=== PATIENT | male | born 1970 | race Caucasian/White ===

== ENCOUNTER → 2018-10-09 | Outpatient (CLI) | payer BC ==
--- NOTE | 2018-10-09 16:28 | CT ---
EXAMINATION TYPE: CT abdomen pelvis w con DATE OF EXAM: 10/09/2018 COMPARISON: None HISTORY: No BM x2 months CT DLP: 1541.1 mGycm CONTRAST: CT scan of the abdomen and pelvis is performed with Oral Contrast and with IV Contrast, patient injec mumtaz with 100 mL of Isovue 300. FINDINGS: LUNG BASES-: No visible nodule. No infiltrate. LIVER/GB: No calcified gallstones. No space occupying hepatic lesion. Biliary tree is of normal ca liber. Mild hepatomegaly. PANCREAS: No inflammation. No distinct mass. SPLEEN: No splenic enlargement. No lesion seen. ADRENALS: No nodule. No thickening. KIDNEYS/BLADDER: No hydronephrosis. No nephrolithiasis. No distinct renal mass. Urinary bladder g rossly unremarkable. BOWEL: Normal appendix. Normal bowel caliber. No inflammation. Left lower quadrant ostomy with para stomal hernia. No evidence for obstruction or strangulation. Mild fecal stasis. No free air or absces s. GENITAL ORGANS: No gross abnormality. LYMPH NODES: No greater than 1cm abdominal or pelvic lymph nodes are appreciated. AORTA: No significant abnormality. OSSEOUS STRUCTURES: No significant abnormality is seen. OTHER: [place] supraumbilical midline ventral hernia containing only fat measures 6.1 cm in transve rse dimension. IMPRESSION: 1. No acute intra-abdominal process. 2. Left lower quadrant ostomy with parastomal hernia. 3. [place] fat-containing supraumbilical midline ventral hernia. 4. Mild hepatomegaly.
== END | disposition home or self-care (01) ==
LOC: RADCTMAIN 14:20
PROVIDERS: ATTEND Midwife
DX: K43.5 Parastomal hernia without obstruction or gangrene (principal); K43.9 Ventral hernia without obstruction or gangrene; R16.0 Hepatomegaly, not elsewhere classified; Z93.4 Other artificial openings of gastrointestinal tract status
CPT/HCPCS: 74177; Q9967

== ENCOUNTER 2018-10-10 21:31 | Inpatient (IN) | payer BC ==
--- NOTE | 2018-10-10 21:45 | ED ---
Recheck HPI - General Chief Complaint: Recheck/Abnormal Lab/Rx Stated Complaint: Dr sahu-Abn labs Time Seen by Provider: 10/10/18 21:41 Source: patient Mode of arrival: ambulatory Limitations: no limitations - History of Present Illness Initial Comments: Candido is a 48-year-old male with a history of colostomy secondary to complicated diverticulitis. Patient has no other significant medical history he is on no medications though he does admit he does not follow with primary care very frequently. Patient reports that for the past couple weeks he's been feeling very fatigued, lacking energy he's noticed these thirsty all the time and has been drinking nearly 2 gallons of milk daily because nothing else taste good. He saw his primary care physician on October 09 and had outpatient labs. He was contacted the evening of October 10 and advised that he had significant lab abnormalities and needed to seek care in the emergency department. Patient was advised at that time that he has a new diagnosis of diabetes.patient does have a strong family history of diabetes. - Related Data Home Medications Medication Instructions Recorded Confirmed No Known Home Medications 10/10/18 10/10/18 Allergies Allergy/AdvReac Type Severity Reaction Status Date / Time No Known Allergies Allergy Verified 10/10/18 22:03 Review of Systems ROS Statement: Those systems with pertinent positive or pertinent negative responses have been documented in the HPI. ROS Other: All systems not noted in ROS Statement are negative. Constitutional: Reports: weakness (generalized). Denies: fever Cardiovascular: Denies: chest pain Endocrine: Reports: fatigue Gastrointestinal: Denies: abdominal pain Genitourinary: Reports: frequency Musculoskeletal: Denies: back pain Skin: Denies: lesions Neurological: Reports: weakness (generalized). Denies: headache Psychiatric: Denies: anxiety, depression Past Medical History Additional Past Medical History / Comment(s): diverticulitis History of Any Multi-Drug Resistant Organisms: None Reported Additional Past Surgical History / Comment(s): colectomy with colostomy Past Psychological History: No Psychological Hx Reported Smoking Status: Never smoker Past Alcohol Use History: None Reported Past Drug Use History: None Reported General Exam - General Exam Comments Initial Comments: Physical Exam GENERAL: Patient is well-developed and well-nourished. Patient is nontoxic but appears dehydrated HENT: Normocephalic, Atraumatic. EYES: PERRL, EOMI PULMONARY: Unlabored respirations. No audible rales rhonchi or wheezing was noted. CARDIOVASCULAR: tachycardic, regular with warm and well perfused extremities ABDOMEN: Soft and nontender with normal bowel sounds. Colostomy in left lower quadrant pink patent and productive SKIN: Skin is clear with no lesions or rashes and otherwise unremarkable. : Deferred NEUROLOGIC: Patient is alert and oriented x3. Moving all extremities spontaneously MUSCULOSKELETAL: Normal extremities with adequate strength and full range of motion. No lower extremity swelling or edema. No calf tenderness. PSYCHIATRIC: Normal psychiatric evaluation. Limitations: no limitations Limitations: no limitations Course Vital Signs 10/10/18 10/10/18 21:33 22:49 Temperature 98.3 F Pulse Rate 116 H 111 H Respiratory 20 16 Rate Blood Pressure 145/92 151/97 O2 Sat by Pulse 93 L 95 Oximetry Medical Decision Making - Medical Decision Making Patient was seen and evaluated history is obtained from the patient and review of outside medical records Labs from previous study revealed patient was in early DKA with a glucose of greater than 600 and anion gap of 15 pseudohyponatremia and a potassium of 5.7 I will repeat labs resuscitate patient and plan to admit Patient care was discussed with patient's primary care provider Dr. Varela who agrees with plan for admission Repeat labs reveal worsening hyperglycemia and hyperosmolar state - anion gap 15 , acetone positive but pH remains normal - no evidence of DKA but will plan to treat with insulin infusion Insulin bolus and infusion ordered, continued IVF ordered Patient care discussed with Dr. Browne who accepts the patient to the ICU Admission orders placed - Lab Data Result diagrams: 10/10/18 22:20 10/10/18 22:20 Lab Results 10/10/18 10/10/18 10/10/18 Range/Units 20:55 22:10 22:20 WBC (3.8-10.6) k/uL RBC (4.30-5.90) m/uL Hgb (13.0-17.5) gm/dL Hct (39.0-53.0) % MCV (80.0-100.0) fL MCH (25.0-35.0) pg MCHC (31.0-37.0) g/dL RDW (11.5-15.5) % Plt Count (150-450) k/uL Neutrophils % % Lymphocytes % % Monocytes % % Eosinophils % % Basophils % % Neutrophils # (1.3-7.7) k/uL Lymphocytes # (1.0-4.8) k/uL Monocytes # (0-1.0) k/uL Eosinophils # (0-0.7) k/uL Basophils # (0-0.2) k/uL VBG pH 7.47 H (7.31-7.41) VBG pCO2 36 L (37-51) mmHg VBG HCO3 26 (24-28) mmol/L Sodium (137-145) mmol/L Potassium (3.5-5.1) mmol/L Chloride (98-107) mmol/L Carbon Dioxide (22-30) mmol/L Anion Gap mmol/L BUN (9-20) mg/dL Creatinine (0.66-1.25) mg/dL Est GFR (CKD-EPI)AfAm (>60 ml/min/1.73 sqM) Est GFR (CKD-EPI)NonAf (>60 ml/min/1.73 sqM) Glucose (74-99) mg/dL Osmolality (280-301) mosm/kg Plasma Lactic Acid Baldev (0.7-2.0) mmol/L Calcium (8.4-10.2) mg/dL Magnesium (1.6-2.3) mg/dL Total Bilirubin (0.2-1.3) mg/dL AST (17-59) U/L ALT (21-72) U/L Alkaline Phosphatase (38-126) U/L Total Creatine Kinase 169 (55-170) U/L CK-MB (CK-2) 0.9 (0.0-2.4) ng/mL CK-MB (CK-2) Rel Index 0.5 Troponin I <0.012 (0.000-0.034) ng/mL Total Protein (6.3-8.2) g/dL Albumin (3.5-5.0) g/dL Lipase (23-300) U/L Urine Color Colorless Urine Appearance Clear (Clear) Urine pH 5.0 (5.0-8.0) Ur Specific [place] 1.028 (1.001-1.035) Urine Protein Negative (Negative) Urine Glucose (UA) 4+ H (Negative) Urine Ketones 1+ H (Negative) Urine Blood Trace H (Negative) Urine Nitrite Negative (Negative) Urine Bilirubin Negative (Negative) Urine Urobilinogen <2.0 (<2.0) mg/dL Ur Leukocyte Esterase Negative (Negative) Urine RBC 2 (0-5) /hpf Urine WBC 1 (0-5) /hpf Acetone, Qual (Negative) 10/10/18 10/10/18 10/10/18 Range/Units 22:20 22:20 22:20 WBC 8.6 (3.8-10.6) k/uL RBC 5.50 (4.30-5.90) m/uL Hgb 15.6 (13.0-17.5) gm/dL Hct 49.5 (39.0-53.0) % MCV 90.1 (80.0-100.0) fL MCH 28.4 (25.0-35.0) pg MCHC 31.6 (31.0-37.0) g/dL RDW 13.0 (11.5-15.5) % Plt Count 308 (150-450) k/uL Neutrophils % 76 % Lymphocytes % 15 % Monocytes % 5 % Eosinophils % 2 % Basophils % 1 % Neutrophils # 6.5 (1.3-7.7) k/uL Lymphocytes # 1.3 (1.0-4.8) k/uL Monocytes # 0.4 (0-1.0) k/uL Eosinophils # 0.2 (0-0.7) k/uL Basophils # 0.1 (0-0.2) k/uL VBG pH (7.31-7.41) VBG pCO2 (37-51) mmHg VBG HCO3 (24-28) mmol/L Sodium 133 L (137-145) mmol/L Potassium 5.3 H (3.5-5.1) mmol/L Chloride 93 L (98-107) mmol/L Carbon Dioxide 25 (22-30) mmol/L Anion Gap 15 mmol/L BUN 34 H (9-20) mg/dL Creatinine 0.89 (0.66-1.25) mg/dL Est GFR (CKD-EPI)AfAm >90 (>60 ml/min/1.73 sqM) Est GFR (CKD-EPI)NonAf >90 (>60 ml/min/1.73 sqM) Glucose 794 H* (74-99) mg/dL Osmolality 343 H* (280-301) mosm/kg Plasma Lactic Acid Baldev 2.1 H* (0.7-2.0) mmol/L Calcium 9.6 (8.4-10.2) mg/dL Magnesium 2.4 H (1.6-2.3) mg/dL Total Bilirubin 0.7 (0.2-1.3) mg/dL AST 33 (17-59) U/L ALT 47 (21-72) U/L Alkaline Phosphatase 158 H (38-126) U/L Total Creatine Kinase (55-170) U/L CK-MB (CK-2) (0.0-2.4) ng/mL CK-MB (CK-2) Rel Index Troponin I (0.000-0.034) ng/mL Total Protein 8.2 (6.3-8.2) g/dL Albumin 4.2 (3.5-5.0) g/dL Lipase 310 H (23-300) U/L Urine Color Urine Appearance (Clear) Urine pH (5.0-8.0) Ur Specific [place] (1.001-1.035) Urine Protein (Negative) Urine Glucose (UA) (Negative) Urine Ketones (Negative) Urine Blood (Negative) Urine Nitrite (Negative) Urine Bilirubin (Negative) Urine Urobilinogen (<2.0) mg/dL Ur Leukocyte Esterase (Negative) Urine RBC (0-5) /hpf Urine WBC (0-5) /hpf Acetone, Qual Positive (Negative) - EKG Data -: EKG Interpreted by Me EKG shows normal: sinus rhythm EKG Comments: EKG obtained at 2239 rate is 108 rhythm is sinus tachycardia there is a leftward axis, there are normal intervals, GA 184, QRS 98, QTC is 452. There are no acute ST elevations or depressions no evidence of acute ischemia or infarction. Critical Care Time Critical Care Time: Yes Total Critical Care Time: 30 Critical Care Time: Critical Care Critical care time was exclusive of separately billable procedures and treating other patients. Critical care was necessary to treat or prevent imminent or life-threatening deterioration. Critical care was time spent personally by me on the following activities: development of treatment plan with patient or surrogate, discussions with consultants, discussions with primary provider, evaluation of patient's response to treatment, examination of patient, obtaining history from patient or surrogate, ordering and performing treatments and interventions, ordering and review of laboratory studies, ordering and review of radiographic studies, pulse oximetry, re-evaluation of patient's condition and review of old charts. Disposition Clinical Impression: Uncontrolled type 2 DM with hyperosmolar nonketotic hyperglycemia, New onset type 2 diabetes mellitus Disposition: ADMITTED IP TO THIS [facility] Condition: Serious Is patient prescribed a controlled substance at d/c from ED?: No Referrals: James Varela MD [Primary Care Provider] - 1-2 days
[2018-10-10] MEDS: SODIUM CHLORIDE 0.9% 500 ML 500 ML IV SCH ×3 (22:27→23:38)
[2018-10-10 22:44] LABS: Appearance,Urine Clear (Clear); Bilirubin,Urine Negative (Negative); Blood,Urine Trace (Negative); Color,Urine Colorless; Glucose,Urine (UA) 4+ (Negative); Ketones,Urine 1+ (Negative); Leukocyte Esterase,Urine Negative (Negative); Nitrite,Urine Negative (Negative); Protein,Urine Negative (Negative); RBC,Urine 2 /hpf (0-5); Specific Gravity,Urine 1.028 (1.001-1.035); Urobilinogen,Urine <2.0 mg/dL (<2.0)
[2018-10-10 22:48] LABS: Basophils # (A) 0.1 k/uL (0-0.2); Basophils % (A) 1 %; Eosinophils # (A) 0.2 k/uL (0-0.7); Eosinophils % (A) 2 %; HCT 49.5 % (39.0-53.0); HGB 15.6 gm/dL (13.0-17.5); Lymphocytes # (A) 1.3 k/uL (1.0-4.8); Lymphocytes % (A) 15 %; MCH 28.4 pg (25.0-35.0); MCHC 31.6 g/dL (31.0-37.0); MCV 90.1 fL (80.0-100.0); Mean Platelet Volume 8.3; Monocytes # (A) 0.4 k/uL (0-1.0); Monocytes % (A) 5 %; Neutrophils # (A) 6.5 k/uL (1.3-7.7); Neutrophils % (A) 76 %; Platelet Count 308 k/uL (150-450); WBC 8.6 k/uL (3.8-10.6)
[2018-10-10 23:09] LABS: VBG PH 7.47 (7.31-7.41)
[2018-10-10 23:09] LABS: Creatine Kinase 169 U/L (55-170)
[2018-10-10 23:11] LABS: Albumin 4.2 g/dL (3.5-5.0); Anion Gap 15 mmol/L; Blood Urea Nitrogen 34 mg/dL (9-20); Calcium 9.6 mg/dL (8.4-10.2); Carbon Dioxide 25 mmol/L (22-30); Chloride 93 mmol/L (98-107); Lipase 310 U/L (23-300); Sodium 133 mmol/L (137-145); Total Bilirubin 0.7 mg/dL (0.2-1.3); Total Protein 8.2 g/dL (6.3-8.2)
[2018-10-10 23:21] LABS: Creatine Kinase MB 0.9 ng/mL (0.0-2.4); Troponin I <0.012 ng/mL (0.000-0.034)
[2018-10-10 23:22] LABS: Glucose 794 mg/dL (74-99)
[2018-10-10 23:23] LABS: ALT 47 U/L (21-72); AST 33 U/L (17-59); Alkaline Phosphatase 158 U/L (38-126); Magnesium 2.4 mg/dL (1.6-2.3); Potassium 5.3 mmol/L (3.5-5.1)
[2018-10-10] MEDS ORDERED: INSULIN REGULAR BOLUS (FROM DRIP BAG) IV PRN (23:25)
[2018-10-10] MEDS ORDERED: SODIUM CHLORIDE 0.9% 1,000 ML IV SCH (23:30)
[2018-10-10] MEDS: INSULIN REGULAR 100 UNIT in SODIUM CHLORIDE 0.9% 100 ML IV SCH (23:50)
[2018-10-10 23:54] LABS: Glucose,Whole Blood 564 mg/dL (75-99)
[2018-10-11 00:36] LABS: Glucose,Whole Blood 487 mg/dL (75-99)
[2018-10-11 00:55] LABS: Glucose,Whole Blood 418 mg/dL (75-99)
[2018-10-11] MEDS ORDERED: SODIUM CHLORIDE 0.9% 1,000 ML IV SCH (01:00)
[2018-10-11] MEDS: INSULIN REGULAR 100 UNIT in SODIUM CHLORIDE 0.9% 100 ML IV SCH ×3 (01:05→12:30)
[2018-10-11 01:40] LABS: Glucose,Whole Blood 406 mg/dL (75-99)
[2018-10-11 02:06] LABS: Glucose,Whole Blood 322 mg/dL (75-99)
[2018-10-11 02:18] LABS: Basophils # (A) 0.1 k/uL (0-0.2); Basophils % (A) 1 %; Eosinophils # (A) 0.2 k/uL (0-0.7); Eosinophils % (A) 3 %; HCT 42.9 % (39.0-53.0); HGB 14.3 gm/dL (13.0-17.5); Lymphocytes # (A) 2.2 k/uL (1.0-4.8); Lymphocytes % (A) 24 %; MCH 29.1 pg (25.0-35.0); MCHC 33.4 g/dL (31.0-37.0); MCV 87.2 fL (80.0-100.0); Mean Platelet Volume 7.2; Monocytes # (A) 0.5 k/uL (0-1.0); Monocytes % (A) 5 %; Neutrophils % (A) 65 %; Platelet Count 323 k/uL (150-450); RBC 4.92 m/uL (4.30-5.90); WBC 9.1 k/uL (3.8-10.6)
[2018-10-11 02:30] LABS: Glucose 332 mg/dL (74-99); Phosphorus 3.9 mg/dL (2.5-4.5)
[2018-10-11 03:03] LABS: Glucose,Whole Blood 378 mg/dL (75-99)
[2018-10-11 03:37] LABS: Anion Gap 8 mmol/L; Blood Urea Nitrogen 29 mg/dL (9-20); Carbon Dioxide 27 mmol/L (22-30); Chloride 103 mmol/L (98-107); Sodium 138 mmol/L (137-145)
[2018-10-11 04:07] LABS: Glucose,Whole Blood 326 mg/dL (75-99)
[2018-10-11 05:13] LABS: Glucose,Whole Blood 218 mg/dL (75-99)
[2018-10-11] MEDS: D5-0.45% NACL WITH KCL 20MEQ/L 1,000 ML IV SCH ×3 (05:26→17:05)
[2018-10-11 05:56] LABS: Glucose,Whole Blood 215 mg/dL (75-99)
[2018-10-11 06:10] LABS: Basophils # (A) 0.1 k/uL (0-0.2); Basophils % (A) 1 %; Eosinophils # (A) 0.4 k/uL (0-0.7); Eosinophils % (A) 5 %; HCT 39.2 % (39.0-53.0); HGB 13.1 gm/dL (13.0-17.5); Lymphocytes # (A) 2.5 k/uL (1.0-4.8); Lymphocytes % (A) 28 %; MCH 28.8 pg (25.0-35.0); MCHC 33.5 g/dL (31.0-37.0); MCV 86.1 fL (80.0-100.0); Mean Platelet Volume 6.9; Monocytes # (A) 0.4 k/uL (0-1.0); Monocytes % (A) 5 %; Neutrophils # (A) 5.2 k/uL (1.3-7.7); Neutrophils % (A) 60 %; Platelet Count 298 k/uL (150-450); RBC 4.55 m/uL (4.30-5.90); RDW 13.1 % (11.5-15.5); WBC 8.7 k/uL (3.8-10.6)
[2018-10-11 06:34] LABS: Potassium 3.7 mmol/L (3.5-5.1)
[2018-10-11 06:35] LABS: Anion Gap 6 mmol/L; Blood Urea Nitrogen 23 mg/dL (9-20); Calcium 8.5 mg/dL (8.4-10.2); Carbon Dioxide 27 mmol/L (22-30); Chloride 108 mmol/L (98-107); Glucose 225 mg/dL (74-99); Magnesium 2.2 mg/dL (1.6-2.3); Sodium 141 mmol/L (137-145)
[2018-10-11 06:59] LABS: Glucose,Whole Blood 238 mg/dL (75-99)
[2018-10-11] MEDS ORDERED: POTASSIUM CHLORIDE ER 20 MEQ TAB.ER PO SCH (07:00)
--- NOTE | 2018-10-11 07:37 | XR ---
EXAMINATION TYPE: XR chest 1V portable DATE OF EXAM: 10/11/2018 CLINICAL HISTORY: Shortness of breath TECHNIQUE: Single frontal view of the chest is obtained. COMPARISON: None FINDINGS: There is no focal air space opacity, pleural effusion, or pneumothorax seen. The cardiac silhouette size is within normal limits. The osseous structures are intact. IMPRESSION: No acute process.
[2018-10-11 08:12] LABS: Glucose,Whole Blood 428 mg/dL (75-99)
[2018-10-11] MEDS: HEPARIN SODIUM,PORCINE 5,000 UNIT/ML 1 ML VIAL SQ SCH ×2 (08:21→17:25)
[2018-10-11] MEDS: FAMOTIDINE 20 MG/2 ML VIAL IV SCH ×2 (08:21→21:03)
[2018-10-11 09:08] LABS: Glucose,Whole Blood 489 mg/dL (75-99)
--- NOTE | 2018-10-11 09:28 | P.CNPUL ---
History of Present Illness Consult date: 10/11/18 Requesting physician: James Varela Reason for consult: other Chief complaint: Fatigue, increased thirst, urination History of present illness: This is a 48-year-old white male patient of Dr. James Varela, past medical history of perforated diverticulitis status post colon resection and colostomy, presented to the emergency department on a very 2018 with complaints of increased fatigue, lacking energy, increased thirst, urination, in addition patient was having some mild pedal edema, and numbness and tingling in the tips of his hands. He has been drinking nearly 2 gallons of milk daily, is nothing else tasted good. Patient saw Dr. Varela in the office on October 09 and had outpatient labs. He was contacted by his PCP with significantly abnormal labs and was told to go to the emergency department. Lab work showed serum glucose of 794, serum osmolality of 343, sodium of 133, potassium is 5.3, chloride was 93, anion gap of 15, CO2 is 25, B1 is 34 and creatinine was 0.89. Lipase was 310, troponin was negative 1, serum acetone was positive, urinalysis showed 4+ glucose, 1+ ketones and trace blood. CBC was negative for any leukocytosis, white blood cell count was 8.6, hemoglobin is 15.6. EKG showed sinus tachycardia with a rate of 108, voltage criteria for LVH, chest x-ray showed no acute process. Patient has a strong family history of diabetes mellitus, he hasn't seen his primary care provider in the last couple years or had any blood work done. CT of the abdomen was done and showed no acute intra-abdominal process,, hepatomegaly, and [place] fat-containing supraumbilical midline ventral hernia. Patient takes no prescription medications on a regular basis. This is a new diagnosis of diabetes mellitus. He was given 2 L of IV fluids in the emergency department. And was started on insulin infusion per [facility] protocol. His morning patient is seen in the intensive care unit, he is still fatigued, but is alert, and responding appropriately, no acute complaints, he was able to eat breakfast, no nausea, no vomiting, no fever or chills, no shortness of breath or chest pain. No abdominal discomfort. Latest blood sugar was 482, patient is currently on 6 units per hour of insulin. IV fluids of D5 half normal saline with 20 ML every of potassium at a rate of 150 ML per hour. Review of Systems All systems: negative Constitutional: Reports anorexia, Reports malaise, Reports poor appetite, Reports weakness, Denies chills, Denies fever Eyes: denies blurred vision, denies pain Ears, nose, mouth and throat: Denies headache, Denies sore throat Cardiovascular: Denies chest pain, Denies shortness of breath Respiratory: Denies cough Gastrointestinal: Denies abdominal pain, Denies diarrhea, Denies nausea, Denies vomiting Musculoskeletal: Denies myalgias Integumentary: Denies pruritus, Denies rash Neurological: Reports paresthesias, Denies numbness, Denies weakness Psychiatric: Denies anxiety, Denies depression Endocrine: Reports excessive thirst, Reports fatigue, Reports polydipsia, Reports polyuria, Denies weight change Past Medical History Additional Past Medical History / Comment(s): diverticulitis History of Any Multi-Drug Resistant Organisms: None Reported Additional Past Surgical History / Comment(s): colectomy with colostomy Past Psychological History: No Psychological Hx Reported Smoking Status: Never smoker Past Alcohol Use History: None Reported Past Drug Use History: None Reported - Past Family History Brother(s) Family Medical History: Cancer, Myocardial Infarction ([place]) Additional Family Medical History / Comment(s): prostate ca. Medications and Allergies Home Medications Medication Instructions Recorded Confirmed Type No Known Home Medications 10/10/18 10/10/18 History Allergies Allergy/AdvReac Type Severity Reaction Status Date / Time No Known Allergies Allergy Verified 10/10/18 22:03 Physical Exam Vitals: Vital Signs Temp Pulse Resp BP Pulse Ox 10/11/18 07:00 90 13 119/82 96 10/11/18 06:00 87 14 119/75 96 10/11/18 05:00 92 12 135/70 95 10/11/18 04:00 98.7 F 98 15 90/55 94 L 10/11/18 03:40 14 10/11/18 03:00 98 16 126/61 94 L 10/11/18 02:00 101 H 19 134/90 95 10/11/18 01:00 98.2 F 109 H 16 138/84 94 L 10/11/18 00:30 16 10/10/18 23:56 107 H 18 151/91 95 10/10/18 22:49 111 H 16 151/97 95 02/06/19 21:33 98.3 F 116 H 20 145/92 93 L Intake and Output 10/10/18 10/11/18 10/11/18 22:59 06:59 14:59 Intake Total 1531.071 15.25 Output Total 725 Balance 806.071 15.25 Intake: IV 1500 D5-0.45% NaCl with KCl 300 20Meq/l 1,000 ml @ 150 mls/hr IV .Q6H40M [facility] Rx# :[id number] Sodium Chloride 0.9% 1, 1200 000 ml @ 200 mls/hr IV . Q5H [facility] Rx#:[id number] Intake, IV Titration 31.071 15.25 Amount Insulin Regular 100 unit 17.183 15.25 In Sodium Chloride 0.9% 100 ml @ 0.1 UNITS/KG/HR 10.85 mls/hr IV .Q9H19M [facility] Rx#:[id number] Insulin Regular 100 unit 13.888 In Sodium Chloride 0.9% 100 ml @ Per Protocol IV .Q0M [facility] Rx#:[id number] Output: Urine 725 Other: # Voids 1 Weight 107.501 kg 106.2 kg GENERAL EXAM: Alert, pleasant, 48-year-old white male, appears fatigued, but in no distress HEAD: Normocephalic/atraumatic. EYES: Normal reaction of pupils, equal size. Conjunctiva pink, sclera white. NOSE: Clear with pink turbinates. THROAT: No erythema or exudates. NECK: No masses, no JVD, no thyroid enlargement, no adenopathy. CHEST: No chest wall deformity. Symmetrical expansion. LUNGS: Equal air entry with no crackles, wheeze, rhonchi or dullness. CVS: Regular rate and rhythm, normal S1 and S2, no gallops, no murmurs, no rubs ABDOMEN: Soft, nontender. No hepatosplenomegaly, normal bowel sounds, no guarding or rigidity. EXTREMITIES: No clubbing, no edema, no cyanosis, 2+ pulses and upper and lower extremities. MUSCULOSKELETAL: Muscle strength and tone normal. SPINE: No scoliosis or deformity SKIN: No rashes CENTRAL NERVOUS SYSTEM: Alert and oriented -3. No focal deficits, tone is normal in all 4 extremities. PSYCHIATRIC: Alert and oriented -3. Appropriate affect. Intact judgment and insight. Results - Laboratory Findings CBC and BMP: 10/11/18 05:31 10/11/18 05:31 Abnormal lab findings: Abnormal Labs 10/10/18 10/10/18 10/10/18 20:55 22:10 22:20 VBG pH 7.47 H VBG pCO2 36 L Sodium 133 L Potassium 5.3 H Chloride 93 L BUN 34 H Glucose 794 H* POC Glucose (mg/dL) Osmolality 343 H* Plasma Lactic Acid Baldev Magnesium 2.4 H Alkaline Phosphatase 158 H Lipase 310 H Urine Glucose (UA) 4+ H Urine Ketones 1+ H Urine Blood Trace H 10/10/18 10/10/18 10/11/18 22:20 23:44 00:35 VBG pH VBG pCO2 Sodium Potassium Chloride BUN Glucose POC Glucose (mg/dL) 564 H 487 H Osmolality Plasma Lactic Acid Baldev 2.1 H* Magnesium Alkaline Phosphatase Lipase Urine Glucose (UA) Urine Ketones Urine Blood 10/11/18 10/11/18 10/11/18 00:54 01:39 01:54 VBG pH VBG pCO2 Sodium Potassium Chloride BUN 29 H Glucose 332 H POC Glucose (mg/dL) 418 H 406 H Osmolality Plasma Lactic Acid Baldev Magnesium Alkaline Phosphatase Lipase Urine Glucose (UA) Urine Ketones Urine Blood 10/11/18 10/11/18 10/11/18 03:02 04:06 05:11 VBG pH VBG pCO2 Sodium Potassium Chloride BUN Glucose POC Glucose (mg/dL) 378 H 326 H 218 H Osmolality Plasma Lactic Acid Baldev Magnesium Alkaline Phosphatase Lipase Urine Glucose (UA) Urine Ketones Urine Blood 10/11/18 10/11/18 10/11/18 05:31 05:54 06:58 VBG pH VBG pCO2 Sodium Potassium Chloride 108 H BUN 23 H Glucose 225 H POC Glucose (mg/dL) 215 H 238 H Osmolality Plasma Lactic Acid Baldev Magnesium Alkaline Phosphatase Lipase Urine Glucose (UA) Urine Ketones Urine Blood 10/11/18 10/11/18 08:10 09:06 VBG pH VBG pCO2 Sodium Potassium Chloride BUN Glucose POC Glucose (mg/dL) 428 H 489 H Osmolality Plasma Lactic Acid Baldev Magnesium Alkaline Phosphatase Lipase Urine Glucose (UA) Urine Ketones Urine Blood - Diagnostic Findings Chest x-ray: report reviewed, image reviewed Additional studies: EKG reviewed Assessment and Plan Plan: Assessment: #1. New diagnosis of diabetes mellitus, and patient presented with acute diabetic ketoacidosis #2. Polyuria, polydipsia, weakness, and fatigue, related to the above #3. Anion gap metabolic acidosis, improved with IV hydration and insulin infusion #4. Mild hyponatremia related to dehydration, improved with IV hydration #5. Elevated lipase, computed tomography scan of the abdomen and pelvis do not show any acute intra-abdominal process #6. History of perforated diverticulitis, status post bowel resection and colostomy placement Plan: We'll switch the IV fluids 0.45 normal saline at a rate of 100 ML per hour, patient is tolerating oral intake, vital signs are stable, no fever or chills, no shortness of breath or chest pain, no nausea or vomiting, no abdominal pain. Chest x-ray was reviewed with Dr. Browne, showed no acute pulmonary process. We will start the patient on basal insulin, we'll start Lantus at 30 units daily, with transition to Humalog sliding scale. Hemoglobin A1c has been drawn and is pending at this time. Cultures have been collected and sent, and are pending at this time, and continue monitoring electrolytes and renal profile. I performed a history & physical examination of the patient and discussed their management with my nurse practitioner, Ailyn Yoon. I reviewed the nurse practitioner's note and agree with the documented findings and plan of care. Lung sounds are positive for clear breath sounds. The findings and the impression was discussed with the patient. I attest to the documentation by the nurse practitioner. Time with Patient: Greater than 30
[2018-10-11 10:09] LABS: Glucose,Whole Blood 287 mg/dL (75-99)
[2018-10-11 10:21] LABS: Anion Gap 4 mmol/L; Blood Urea Nitrogen 21 mg/dL (9-20); Carbon Dioxide 28 mmol/L (22-30); Chloride 107 mmol/L (98-107); Glucose 305 mg/dL (74-99); Phosphorus 3.5 mg/dL (2.5-4.5); Potassium 4.1 mmol/L (3.5-5.1); Sodium 139 mmol/L (137-145)
[2018-10-11 10:44] VITALS: BMI 32.6
[2018-10-11 10:57] LABS: Glucose,Whole Blood 260 mg/dL (75-99)
[2018-10-11] MEDS: SODIUM CHLORIDE 0.45% 1,000 ML IV SCH ×2 (10:58→17:27)
[2018-10-11] MEDS: INSULIN DETEMIR 100 UNIT/ML 10 ML VIAL SQ SCH (11:00)
[2018-10-11 12:01] LABS: Glucose,Whole Blood 326 mg/dL (75-99)
--- NOTE | 2018-10-11 12:18 | P.HPIM ---
History of Present Illness 48-year-old male was admitted to the emergency room after visiting primary care physician Dr. James Varela. Patient was found to be hyperglycemic no personal history of diabetes states of father's family has diabetes. 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 States patient stated he has not felt well for the last 2 months she is been having problems with increased thirst and polyuria Review of Systems Constitutional: Reports fatigue Gastrointestinal: Reports loss of appetite Genitourinary: Reports polyuria Endocrine: Reports excessive thirst, Reports polyuria Past Medical History Additional Past Medical History / Comment(s): diverticulitis History of Any Multi-Drug Resistant Organisms: None Reported Additional Past Surgical History / Comment(s): colectomy with colostomy Past Psychological History: No Psychological Hx Reported Smoking Status: Never smoker Past Alcohol Use History: None Reported Past Drug Use History: None Reported - Past Family History Brother(s) Family Medical History: Cancer, Myocardial Infarction ([place]) Additional Family Medical History / Comment(s): prostate ca. Medications and Allergies Home Medications Medication Instructions Recorded Confirmed Type No Known Home Medications 10/10/18 10/10/18 History Allergies Allergy/AdvReac Type Severity Reaction Status Date / Time No Known Allergies Allergy Verified 10/10/18 22:03 Physical Exam Vitals: Vital Signs Temp Pulse Resp BP Pulse Ox 10/11/18 10:00 85 13 138/86 96 10/11/18 09:00 89 12 132/84 96 10/11/18 08:00 98 F 89 14 147/90 97 10/11/18 07:00 90 13 119/82 96 10/11/18 06:00 87 14 119/75 96 10/11/18 05:00 92 12 135/70 95 10/11/18 04:00 98.7 F 98 15 90/55 94 L 10/11/18 03:40 14 10/11/18 03:00 98 16 126/61 94 L 10/11/18 02:00 101 H 19 134/90 95 10/11/18 01:00 98.2 F 109 H 16 138/84 94 L 10/11/18 00:30 16 10/10/18 23:56 107 H 18 151/91 95 10/10/18 22:49 111 H 16 151/97 95 10/10/18 21:33 98.3 F 116 H 20 145/92 93 L Intake and Output 10/10/18 10/11/18 10/11/18 22:59 06:59 14:59 Intake Total 1531.071 421.15 Output Total 725 300 Balance 806.071 121.15 Intake: IV 1500 400 D5-0.45% NaCl with KCl 300 300 20Meq/l 1,000 ml @ 150 mls/hr IV .Q6H40M [facility] Rx# :[id number] Sodium Chloride 0.45% 1, 100 000 ml @ 100 mls/hr IV . Q10H [facility] Rx#:[id number] Sodium Chloride 0.9% 1, 1200 000 ml @ 200 mls/hr IV . Q5H [facility] Rx#:[id number] Intake, IV Titration 31.071 21.15 Amount Insulin Regular 100 unit 17.183 21.15 In Sodium Chloride 0.9% 100 ml @ 0.1 UNITS/KG/HR 10.85 mls/hr IV .Q9H19M [facility] Rx#:[id number] Insulin Regular 100 unit 13.888 In Sodium Chloride 0.9% 100 ml @ Per Protocol IV .Q0M [facility] Rx#:[id number] Output: Urine 725 300 Other: # Voids 1 Weight 107.501 kg 106.2 kg 106.2 kg - Constitutional General appearance: mild distress - EENT Eyes: PERRLA Ears: bilateral: normal - Neck Neck: normal ROM - Respiratory Respiratory: bilateral: CTA - Cardiovascular Rhythm: regular - Gastrointestinal General gastrointestinal: soft - Integumentary Integumentary: normal - Neurologic Neurologic: CNII-XII intact - Musculoskeletal Musculoskeletal: gait normal - Psychiatric Psychiatric: A&O x's 3, appropriate affect, intact judgment & insight Results CBC & Chem 7: 10/11/18 05:31 10/11/18 09:46 Labs: Abnormal Lab Results - Last 24 Hours (Table) 10/10/18 10/10/18 10/10/18 Range/Units 20:55 22:10 22:20 VBG pH 7.47 H (7.31-7.41) VBG pCO2 36 L (37-51) mmHg Sodium 133 L (137-145) mmol/L Potassium 5.3 H (3.5-5.1) mmol/L Chloride 93 L (98-107) mmol/L BUN 34 H (9-20) mg/dL Glucose 794 H* (74-99) mg/dL POC Glucose (mg/dL) (75-99) mg/dL Osmolality 343 H* (280-301) mosm/kg Plasma Lactic Acid Baldev (0.7-2.0) mmol/L Magnesium 2.4 H (1.6-2.3) mg/dL Alkaline Phosphatase 158 H (38-126) U/L Lipase 310 H (23-300) U/L Urine Glucose (UA) 4+ H (Negative) Urine Ketones 1+ H (Negative) Urine Blood Trace H (Negative) 10/10/18 10/10/18 10/11/18 Range/Units 22:20 23:44 00:35 VBG pH (7.31-7.41) VBG pCO2 (37-51) mmHg Sodium (137-145) mmol/L Potassium (3.5-5.1) mmol/L Chloride (98-107) mmol/L BUN (9-20) mg/dL Glucose (74-99) mg/dL POC Glucose (mg/dL) 564 H 487 H (75-99) mg/dL Osmolality (280-301) mosm/kg Plasma Lactic Acid Baldev 2.1 H* (0.7-2.0) mmol/L Magnesium (1.6-2.3) mg/dL Alkaline Phosphatase (38-126) U/L Lipase (23-300) U/L Urine Glucose (UA) (Negative) Urine Ketones (Negative) Urine Blood (Negative) 10/11/18 10/11/18 10/11/18 Range/Units 00:54 01:39 01:54 VBG pH (7.31-7.41) VBG pCO2 (37-51) mmHg Sodium (137-145) mmol/L Potassium (3.5-5.1) mmol/L Chloride (98-107) mmol/L BUN 29 H (9-20) mg/dL Glucose 332 H (74-99) mg/dL POC Glucose (mg/dL) 418 H 406 H (75-99) mg/dL Osmolality (280-301) mosm/kg Plasma Lactic Acid Baldev (0.7-2.0) mmol/L Magnesium (1.6-2.3) mg/dL Alkaline Phosphatase (38-126) U/L Lipase (23-300) U/L Urine Glucose (UA) (Negative) Urine Ketones (Negative) Urine Blood (Negative) 10/11/18 10/11/18 10/11/18 Range/Units 03:02 04:06 05:11 VBG pH (7.31-7.41) VBG pCO2 (37-51) mmHg Sodium (137-145) mmol/L Potassium (3.5-5.1) mmol/L Chloride (98-107) mmol/L BUN (9-20) mg/dL Glucose (74-99) mg/dL POC Glucose (mg/dL) 378 H 326 H 218 H (75-99) mg/dL Osmolality (280-301) mosm/kg Plasma Lactic Acid Baldev (0.7-2.0) mmol/L Magnesium (1.6-2.3) mg/dL Alkaline Phosphatase (38-126) U/L Lipase (23-300) U/L Urine Glucose (UA) (Negative) Urine Ketones (Negative) Urine Blood (Negative) 10/11/18 10/11/18 10/11/18 Range/Units 05:31 05:54 06:58 VBG pH (7.31-7.41) VBG pCO2 (37-51) mmHg Sodium (137-145) mmol/L Potassium (3.5-5.1) mmol/L Chloride 108 H (98-107) mmol/L BUN 23 H (9-20) mg/dL Glucose 225 H (74-99) mg/dL POC Glucose (mg/dL) 215 H 238 H (75-99) mg/dL Osmolality (280-301) mosm/kg Plasma Lactic Acid Baldev (0.7-2.0) mmol/L Magnesium (1.6-2.3) mg/dL Alkaline Phosphatase (38-126) U/L Lipase (23-300) U/L Urine Glucose (UA) (Negative) Urine Ketones (Negative) Urine Blood (Negative) 10/11/18 10/11/18 10/11/18 Range/Units 08:10 09:06 09:46 VBG pH (7.31-7.41) VBG pCO2 (37-51) mmHg Sodium (137-145) mmol/L Potassium (3.5-5.1) mmol/L Chloride (98-107) mmol/L BUN 21 H (9-20) mg/dL Glucose 305 H (74-99) mg/dL POC Glucose (mg/dL) 428 H 489 H (75-99) mg/dL Osmolality (280-301) mosm/kg Plasma Lactic Acid Baldev (0.7-2.0) mmol/L Magnesium (1.6-2.3) mg/dL Alkaline Phosphatase (38-126) U/L Lipase (23-300) U/L Urine Glucose (UA) (Negative) Urine Ketones (Negative) Urine Blood (Negative) 10/11/18 10/11/18 10/11/18 Range/Units 10:06 10:56 11:59 VBG pH (7.31-7.41) VBG pCO2 (37-51) mmHg Sodium (137-145) mmol/L Potassium (3.5-5.1) mmol/L Chloride (98-107) mmol/L BUN (9-20) mg/dL Glucose (74-99) mg/dL POC Glucose (mg/dL) 287 H 260 H 326 H (75-99) mg/dL Osmolality (280-301) mosm/kg Plasma Lactic Acid Baldev (0.7-2.0) mmol/L Magnesium (1.6-2.3) mg/dL Alkaline Phosphatase (38-126) U/L Lipase (23-300) U/L Urine Glucose (UA) (Negative) Urine Ketones (Negative) Urine Blood (Negative) Chest x-ray: report reviewed Thrombosis Risk Factor Assmnt - Choose All That Apply Any of the Below Risk Factors Present?: Yes Each Factor Represents 1 point: Age 41-60 years, Obesity (BMI >25) Other Risk Factors: No Other congenital or acquired thrombophilia - If yes, enter type in comment: No Thrombosis Risk Factor Assessment Total Risk Factor Score: 2 Thrombosis Risk Factor Assessment Level: Low Risk Assessment and Plan Plan: Assessment Head diabetes type 2 with hyper osmolar ketotic hyperglycemia Hyponatremia related dehydration History of colostomy from perforated diverticulitis Plan Stabilized diabetes diabetic teaching We will order meter and strips from patient's pharmacy
[2018-10-11] MEDS: INSULIN ASPART 100 UNIT/ML 1 ML 10 ML VIAL SQ SCH ×3 (12:21→21:03)
[2018-10-11 16:03] LABS: Hemoglobin A1C 13.1 % (4.0-6.0)
[2018-10-11 17:12] LABS: Glucose,Whole Blood 256 mg/dL (75-99)
[2018-10-11 20:25] LABS: Glucose,Whole Blood 268 mg/dL (75-99)
[2018-10-12 00:02] LABS: Glucose,Whole Blood 222 mg/dL (75-99)
[2018-10-12 01:37] LABS: Glucose,Whole Blood 254 mg/dL (75-99)
[2018-10-12 01:55] LABS: Glucose,Whole Blood 263 mg/dL (75-99)
[2018-10-12] MEDS: INSULIN ASPART 100 UNIT/ML 1 ML 10 ML VIAL SQ SCH ×5 (03:03→12:24)
[2018-10-12] MEDS: HEPARIN SODIUM,PORCINE 5,000 UNIT/ML 1 ML VIAL SQ SCH ×3 (03:03→15:44)
[2018-10-12] MEDS: SODIUM CHLORIDE 0.45% 1,000 ML IV SCH ×2 (03:03→12:49)
[2018-10-12 06:07] LABS: Basophils # (A) 0.1 k/uL (0-0.2); Basophils % (A) 1 %; Eosinophils # (A) 0.4 k/uL (0-0.7); Eosinophils % (A) 6 %; HCT 38.1 % (39.0-53.0); HGB 12.3 gm/dL (13.0-17.5); Lymphocytes # (A) 2.2 k/uL (1.0-4.8); Lymphocytes % (A) 28 %; MCH 28.7 pg (25.0-35.0); MCHC 32.4 g/dL (31.0-37.0); MCV 88.5 fL (80.0-100.0); Mean Platelet Volume 7.7; Monocytes # (A) 0.3 k/uL (0-1.0); Monocytes % (A) 4 %; Neutrophils # (A) 4.5 k/uL (1.3-7.7); Neutrophils % (A) 59 %; Platelet Count 269 k/uL (150-450); RDW 13.1 % (11.5-15.5); WBC 7.6 k/uL (3.8-10.6)
[2018-10-12 06:23] LABS: Anion Gap 5 mmol/L; Blood Urea Nitrogen 16 mg/dL (9-20); Calcium 8.2 mg/dL (8.4-10.2); Carbon Dioxide 25 mmol/L (22-30); Chloride 107 mmol/L (98-107); Glucose 235 mg/dL (74-99); Phosphorus 3.8 mg/dL (2.5-4.5); Potassium 3.9 mmol/L (3.5-5.1); Sodium 137 mmol/L (137-145)
[2018-10-12] MEDS ORDERED: Potassium Replacement Protocol 1 EACH MISC MISCELLANE PRN (06:49)
[2018-10-12 06:56] LABS: Glucose,Whole Blood 221 mg/dL (75-99)
[2018-10-12] MEDS: D5-0.45% NACL WITH KCL 20MEQ/L 1,000 ML IV SCH (07:58)
[2018-10-12] MEDS ORDERED: POTASSIUM CHLORIDE ER 20 MEQ TAB.ER PO SCH (08:00)
[2018-10-12] MEDS: INSULIN DETEMIR 100 UNIT/ML 10 ML VIAL SQ SCH (08:17)
[2018-10-12] MEDS: FAMOTIDINE 20 MG/2 ML VIAL IV SCH (08:17)
[2018-10-12] MEDS ORDERED: INSULIN DETEMIR 100 UNIT/ML 10 ML VIAL SQ SCH (09:00)
[2018-10-12 10:07] VITALS: TEMP 98.7
--- NOTE | 2018-10-12 10:10 | P.PN ---
Subjective Progress Note Date: 10/12/18 Principal diagnosis: Fatigue, increased thirst, urination, diabetic ketoacidosis This is a 48-year-old white male patient of Dr. James Varela, past medical history of perforated diverticulitis status post colon resection and colostomy, presented to the emergency department on Oct 10 2018 with complaints of increased fatigue, lacking energy, increased thirst, urination, in addition patient was having some mild pedal edema, and numbness and tingling in the tips of his hands. He has been drinking nearly 2 gallons of milk daily, is nothing else tasted good. Patient saw Dr. Varela in the office on October 09 and had outpatient labs. He was contacted by his PCP with significantly abnormal labs and was told to go to the emergency department. Lab work showed serum glucose of 794, serum osmolality of 343, sodium of 133, potassium is 5.3, chloride was 93, anion gap of 15, CO2 is 25, B1 is 34 and creatinine was 0.89. Lipase was 310, troponin was negative 1, serum acetone was positive, urinalysis showed 4+ glucose, 1+ ketones and trace blood. CBC was negative for any leukocytosis, white blood cell count was 8.6, hemoglobin is 15.6. EKG showed sinus tachycardia with a rate of 108, voltage criteria for LVH, chest x-ray showed no acute process. Patient has a strong family history of diabetes mellitus, he hasn't seen his primary care provider in the last couple years or had any blood work done. CT of the abdomen was done and showed no acute intra-abdominal process,, hepatomegaly, and [place] fat-containing supraumbilical midline ventral hernia. Patient takes no prescription medications on a regular basis. This is a new diagnosis of diabetes mellitus. He was given 2 L of IV fluids in the emergency department. And was started on insulin infusion per [facility] protocol. His morning patient is seen in the intensive care unit, he is still fatigued, but is alert, and responding appropriately, no acute complaints, he was able to eat breakfast, no nausea, no vomiting, no fever or chills, no shortness of breath or chest pain. No abdominal discomfort. Latest blood sugar was 482, patient is currently on 6 units per hour of insulin. IV fluids of D5 half normal saline with 20 ML every of potassium at a rate of 150 ML per hour. On 10/12/2018 patient seen in follow-up in the intensive care unit. Patient is resting comfortably in bed, he states he is more fatigued today, did not get much sleep due to noise and activity in the ICU last night. But no acute complaints, nausea or vomiting, no abdominal pain, lung sounds are clear, no difficulty breathing. Vital signs are stable, room air pulse ox is 97%, afebrile. IV fluids 0.45 at a rate of 100 ML per hour, patient is tolerating oral intake, we will decrease it down to KVO. Today's blood work has been reviewed, no leukocytosis, white blood cell count was 7.6, hemoglobin is 12.3, electrolytes were within normal limits, anion gap has closed, and is currently at 5, BUN is 16 creatinine 0.64. Patient has been transitioned to Cutaneous insulin, yesterday we added Levemir 30 units daily, and Humalog sliding scale. Through the day blood sugars were running in the 200s, and patient did require addition of mealtime insulin 10 units with every meal. Blood culture showed no growth. Objective - Vital Signs Vital signs: Vital Signs Temp 98.0 F 10/12/18 04:00 Pulse 76 10/12/18 06:00 Resp 16 10/12/18 06:00 BP 106/80 10/12/18 06:00 Pulse Ox 97 10/12/18 06:00 Intake & Output 10/11/18 10/12/18 10/12/18 18:59 06:59 18:59 Intake Total 1801.15 1100 100 Output Total 900 525 225 Balance 901.15 575 -125 Weight 106.2 kg 109.2 kg Intake: IV 1300 1100 100 D5-0.45% NaCl with KCl 300 20Meq/l 1,000 ml @ 150 mls/hr IV .Q6H40M [facility] Rx# :[id number] Sodium Chloride 0.45% 1, 1000 1100 100 000 ml @ 100 mls/hr IV . Q10H [facility] Rx#:[id number] Intake, IV Titration 21.15 Amount Insulin Regular 100 unit 21.15 In Sodium Chloride 0.9% 100 ml @ 0.1 UNITS/KG/HR 10.85 mls/hr IV .Q9H19M [facility] Rx#:[id number] Oral 480 Output: Urine 900 525 225 Other: # Voids 1 1 1 - Exam GENERAL EXAM: Alert, pleasant, 48-year-old white male, appears fatigued, but in no distress HEAD: Normocephalic/atraumatic. EYES: Normal reaction of pupils, equal size. Conjunctiva pink, sclera white. NOSE: Clear with pink turbinates. THROAT: No erythema or exudates. NECK: No masses, no JVD, no thyroid enlargement, no adenopathy. CHEST: No chest wall deformity. Symmetrical expansion. LUNGS: Equal air entry with no crackles, wheeze, rhonchi or dullness. CVS: Regular rate and rhythm, normal S1 and S2, no gallops, no murmurs, no rubs ABDOMEN: Soft, nontender. No hepatosplenomegaly, normal bowel sounds, no guarding or rigidity. EXTREMITIES: No clubbing, no edema, no cyanosis, 2+ pulses and upper and lower extremities. MUSCULOSKELETAL: Muscle strength and tone normal. SPINE: No scoliosis or deformity SKIN: No rashes CENTRAL NERVOUS SYSTEM: Alert and oriented -3. No focal deficits, tone is normal in all 4 extremities. PSYCHIATRIC: Alert and oriented -3. Appropriate affect. Intact judgment and insight. - Labs CBC & Chem 7: 10/12/18 04:44 10/12/18 04:44 Labs: Abnormal Lab Results - Last 24 Hours (Table) 10/11/18 10/11/18 10/11/18 Range/Units 01:54 09:46 10:06 Hgb (13.0-17.5) gm/dL Hct (39.0-53.0) % BUN 21 H (9-20) mg/dL Creatinine (0.66-1.25) mg/dL Glucose 305 H (74-99) mg/dL POC Glucose (mg/dL) 287 H (75-99) mg/dL Hemoglobin A1c 13.1 H (4.0-6.0) % Calcium (8.4-10.2) mg/dL 10/11/18 10/11/18 10/11/18 Range/Units 10:56 11:59 17:10 Hgb (13.0-17.5) gm/dL Hct (39.0-53.0) % BUN (9-20) mg/dL Creatinine (0.66-1.25) mg/dL Glucose (74-99) mg/dL POC Glucose (mg/dL) 260 H 326 H 256 H (75-99) mg/dL Hemoglobin A1c (4.0-6.0) % Calcium (8.4-10.2) mg/dL 10/11/18 10/12/18 10/12/18 Range/Units 20:23 00:00 01:36 Hgb (13.0-17.5) gm/dL Hct (39.0-53.0) % BUN (9-20) mg/dL Creatinine (0.66-1.25) mg/dL Glucose (74-99) mg/dL POC Glucose (mg/dL) 268 H 222 H 254 H (75-99) mg/dL Hemoglobin A1c (4.0-6.0) % Calcium (8.4-10.2) mg/dL 10/12/18 10/12/18 10/12/18 Range/Units 01:54 04:44 04:44 Hgb 12.3 L (13.0-17.5) gm/dL Hct 38.1 L (39.0-53.0) % BUN (9-20) mg/dL Creatinine 0.64 L (0.66-1.25) mg/dL Glucose 235 H (74-99) mg/dL POC Glucose (mg/dL) 263 H (75-99) mg/dL Hemoglobin A1c (4.0-6.0) % Calcium 8.2 L (8.4-10.2) mg/dL 10/12/18 Range/Units 06:55 Hgb (13.0-17.5) gm/dL Hct (39.0-53.0) % BUN (9-20) mg/dL Creatinine (0.66-1.25) mg/dL Glucose (74-99) mg/dL POC Glucose (mg/dL) 221 H (75-99) mg/dL Hemoglobin A1c (4.0-6.0) % Calcium (8.4-10.2) mg/dL Microbiology - Last 24 Hours (Table) 10/10/18 22:20 Blood Culture - Preliminary Blood No Growth after 24 hours Assessment and Plan Plan: Assessment: #1. New diagnosis of diabetes mellitus, and patient presented with acute diabetic ketoacidosis #2. Polyuria, polydipsia, weakness, and fatigue, related to the above #3. Anion gap metabolic acidosis, improved with IV hydration and insulin infusion #4. Mild hyponatremia related to dehydration, improved with IV hydration #5. Elevated lipase, computed tomography scan of the abdomen and pelvis do not show any acute intra-abdominal process #6. History of perforated diverticulitis, status post bowel resection and colostomy placement Plan: Decrease the IV fluids to KVO, patient is tolerating oral diet, serum sodium is improved, electrolytes are within normal limits, renal profile within normal limits. No fever or chills, no nausea or vomiting, no abdominal pain. Hemoglobin A1c is still pending at this time, continue with Levemir, Humalog sliding scale and mealtime insulin. Patient is stable to transfer out of the intensive care unit today to medical surgical floor without telemetry. Diabetic education has been initiated. I performed a history & physical examination of the patient and discussed their management with my nurse practitioner, Ailyn Yoon. I reviewed the nurse practitioner's note and agree with the documented findings and plan of care. Lung sounds are positive for clear breath sounds. The findings and the impression was discussed with the patient. I attest to the documentation by the nurse practitioner.
[2018-10-12 11:06] VITALS: BP 137/96; PULSE 83; RESP 18
[2018-10-12 12:01] LABS: Glucose,Whole Blood 265 mg/dL (75-99)
--- NOTE | 2018-10-12 13:35 | P.DS ---
Providers Date of admission: 10/10/18 23:34 Attending physician: James Varela Consults: 10/10/18 23:29 Consult Physician Stat Consulting Provider: Addy Browne Consult Reason/Comments: insulin gtt Do you want consulting provider notified?: Already Contacted Primary care physician: James Varela Hospital Course: 48-year-old gentleman admitted for diabetic acidosis acute acidosis resolved and the patient blood sugars are still bit elevated will am increasing the dose of long-acting insulin as well as pre-meal insulin and patient is asked to check the blood pressure 3 times a day diabetic counseling and dietary education will be provided to the patient before discharge and patient will be discharged today. Patient is new onset diabetes mellitus E the type I diabetes mellitus type 2 with insulin deficiency. PHYSICAL EXAMINATION: GENERAL: The patient is alert and oriented x3, not in any acute distress. Well developed, well nourished. HEENT: Pupils are round and equally reacting to light. EOMI. No scleral icterus. No conjunctival pallor. Normocephalic, atraumatic. No pharyngeal erythema. No thyromegaly. CARDIOVASCULAR: S1 and S2 present. No murmurs, rubs, or gallops. PULMONARY: Chest is clear to auscultation, no wheezing or crackles. ABDOMEN: Soft, nontender, nondistended, normoactive bowel sounds. No palpable organomegaly. MUSCULOSKELETAL: No joint swelling or deformity. EXTREMITIES: No cyanosis, clubbing, or pedal edema. NEUROLOGICAL: Gross neurological examination did not reveal any focal deficits. SKIN: No rashes. For other chronic medical problems and hospitalization course please refer to H& P from Dr. Varela yesterday Patient Condition at Discharge: Serious Plan - Discharge Summary Discharge Rx Participant: Yes New Discharge Prescriptions: New Insulin Aspart [NovoLOG (formulary)] 12 unit SQ AC-TID #1 vial Insulin Detemir [Levemir] 36 unit SQ DAILY #1 syr Discharge Medication List Insulin Aspart [NovoLOG (formulary)] 12 unit SQ AC-TID #1 vial 10/12/18 [Rx] Insulin Detemir [Levemir] 36 unit SQ DAILY #1 syr 10/12/18 [Rx] Follow up Appointment(s)/Referral(s): James Varela MD [Primary Care Provider] - 3 Days Activity/Diet/Wound Care/Special Instructions: diabetic diet., cbg achs Discharge Disposition: HOME SELF-CARE
[2018-10-13] MEDS ORDERED: FAMOTIDINE 20 MG TAB PO SCH (09:00)
--- NOTE | 2018-10-13 11:32 | P.PN ---
Subjective Lab called me a few minutes ago about the positive blood cultures with gram- positive bacilli which is a contamination. Objective - Vital Signs Vital signs: Vital Signs Temp 98.7 F 10/12/18 08:00 Pulse 83 10/12/18 11:00 Resp 18 10/12/18 11:00 BP 137/96 10/12/18 11:00 Pulse Ox 96 10/12/18 11:00 Intake & Output 10/12/18 10/13/18 10/13/18 18:59 06:59 18:59 Intake Total 740 Output Total 425 Balance 315 Intake: IV 500 Sodium Chloride 0.45% 1, 200 000 ml @ 20 mls/hr IV . Q24H [facility] Rx#:[id number] Sodium Chloride 0.9% 1, 300 000 ml @ 200 mls/hr IV . Q5H [facility] Rx#:[id number] Oral 240 Output: Urine 425 Other: # Voids 2 - Labs CBC & Chem 7: 10/12/18 04:44 10/12/18 04:44 Labs: Abnormal Lab Results - Last 24 Hours (Table) 10/12/18 Range/Units 11:58 POC Glucose (mg/dL) 265 H (75-99) mg/dL Microbiology - Last 24 Hours (Table) 10/10/18 22:20 Blood Culture - Preliminary Blood No Growth after 48 hours
== END 2018-10-12 18:22 | disposition home or self-care (01) | DRG 638 ==
LOC: EC 21:31 → 2SICU 23:34
PROVIDERS: ADMIT Family Medicine; ATTEND Family Medicine
DX: E11.10 Type 2 diabetes mellitus with ketoacidosis without coma (principal); E87.1 Hypo-osmolality and hyponatremia; E86.0 Dehydration; R74.8 Abnormal levels of other serum enzymes; K57.90 Diverticulosis of intestine, part unspecified, without perforation or abscess without bleeding; Z93.3 Colostomy status; Z90.49 Acquired absence of other specified parts of digestive tract; Z83.3 Family history of diabetes mellitus; Z82.49 Family history of ischemic heart disease and other diseases of the circulatory system; Z80.42 Family history of malignant neoplasm of prostate
CPT/HCPCS: 36415; 71045; 80048; 80051; 80053; 81001; 82009; 82550; 82553; 82565; 82803; 82947; 83036; 83605; 83690; 83735; 83930; 84100; 84484; 84520; 85025; 87040; 93005; 96360; 99291

== ENCOUNTER → 2020-11-06 | Outpatient (CLI) | payer BC | END | disposition home or self-care (01) | LOC: LABWHC1 13:00 | PROVIDERS: ATTEND Family Medicine | DX: U07.1 COVID-19 (principal) | CPT/HCPCS: U0003; U0005 ==

== ENCOUNTER 2020-11-08 14:18 | Inpatient (IN) | payer BC ==
[2020-11-08] MEDS ORDERED: IBUPROFEN 600 MG TAB PO STA (14:34)
[2020-11-08] MEDS ORDERED: SODIUM CHLORIDE 0.9% 1,000 ML IV STA (14:34)
[2020-11-08] MEDS ORDERED: ACETAMINOPHEN TAB 325 MG TAB PO STA (14:34)
--- NOTE | 2020-11-08 14:45 | ED ---
Fever HPI - General Chief Complaint: Fever Stated Complaint: Covid, high fever Source: patient, RN notes reviewed Mode of arrival: ambulatory Limitations: no limitations - History of Present Illness Initial Comments: Patient is a 50-year-old male presents to emergency department complaining of a fever with cough. He did note that he tested positive today for Covid. Hehad symptoms since about Monday that progressively gotten worse. He notes that he is not short of breath just feels a little bit of chest congestion. He denies any difficulty breathing. He states that he is in no pain or discomfort while sitting in bed. He denied any chest pain shortness of breath headache nausea vomiting diarrhea constipation fever fatigue chills. He did note that his daughter and both tested positive earlier last week. - Related Data Home Medications Medication Instructions Recorded Confirmed Acetaminophen [Tylenol] 650 mg PO Q8H PRN 11/08/20 11/08/20 Ascorbic Acid [Vitamin C] 500 mg PO DAILY 11/08/20 11/08/20 Cholecalciferol [Vitamin D3 (25 25 mcg PO DAILY 11/08/20 11/08/20 Mcg = 1000 Iu)] Cyanocobalamin [Vitamin B-12] 500 mcg PO DAILY 11/08/20 11/08/20 INSULIN ASPART (NovoLOG) [NovoLOG 10 unit SQ TID 11/08/20 11/08/20 (formulary)] Lisinopril [Zestril] 10 mg PO DAILY 11/08/20 11/08/20 Zinc 50 mg PO DAILY 11/08/20 11/08/20 Allergies Allergy/AdvReac Type Severity Reaction Status Date / Time No Known Allergies Allergy Verified 10/10/18 22:03 Review of Systems ROS Statement: Those systems with pertinent positive or pertinent negative responses have been documented in the HPI. ROS Other: All systems not noted in ROS Statement are negative. Past Medical History Additional Past Medical History / Comment(s): diverticulitis History of Any Multi-Drug Resistant Organisms: None Reported Additional Past Surgical History / Comment(s): colectomy with colostomy Past Psychological History: No Psychological Hx Reported Smoking Status: Never smoker Past Alcohol Use History: None Reported Past Drug Use History: None Reported - Past Family History Brother(s) Family Medical History: Cancer, Myocardial Infarction ([place]) Additional Family Medical History / Comment(s): prostate ca. General Exam Limitations: no limitations General appearance: alert, in no apparent distress Head exam: Present: atraumatic, normocephalic, normal inspection Eye exam: Present: normal appearance, PERRL, EOMI. Absent: scleral icterus, conjunctival injection, periorbital swelling ENT exam: Present: normal exam, mucous membranes moist, other (Nasal cannula in place.) Neck exam: Present: normal inspection. Absent: tenderness, meningismus, lymphadenopathy Respiratory exam: Present: normal lung sounds bilaterally. Absent: respiratory distress, wheezes, rales, rhonchi, stridor Cardiovascular Exam: Present: regular rate, normal rhythm, normal heart sounds. Absent: systolic murmur, diastolic murmur, rubs, gallop, clicks GI/Abdominal exam: Present: soft, normal bowel sounds, other (Colostomy intact with no signs or symptoms of infection.). Absent: distended, tenderness, guarding, rebound, rigid Extremities exam: Present: normal inspection, full ROM, normal capillary refill. Absent: tenderness, pedal edema, joint swelling, calf tenderness Neurological exam: Present: alert, oriented X3, CN II-XII intact Psychiatric exam: Present: normal affect, normal mood Skin exam: Present: warm, dry, intact, normal color. Absent: rash Course Vital Signs 11/08/20 11/08/20 11/08/20 14:23 14:38 14:53 Temperature 103.0 F H 103 F H 103 F H Pulse Rate 114 H 116 H 118 H Respiratory 18 20 20 Rate Blood Pressure 142/69 149/86 148/81 O2 Sat by Pulse 95 99 99 Oximetry 11/08/20 11/08/20 15:08 15:23 Temperature 103 F H 102.4 F H Pulse Rate 115 H 109 H Respiratory 20 18 Rate Blood Pressure 158/85 148/67 O2 Sat by Pulse 97 98 Oximetry - Reevaluation(s) Reevaluation #1: 11/08/20 15:13 Sepsis called at 2:45 PM. Medical Decision Making - Medical Decision Making 50-year-old male that presents to emergency department complaining of fever status post testing positive for covert did. Labs, oxygen 2 L via nasal cannula, Tylenol 650 mg, Motrin 600 mg, 1 L normal saline, ordered. Labs grossly unremarkable. Case discussed with Dr. Celestin, decided to consult Dr. Woodard for admission for covid pneumonia. - Lab Data Result diagrams: 11/08/20 14:52 11/08/20 14:52 Lab Results 11/08/20 11/08/20 11/08/20 Range/Units 14:52 14:52 14:52 WBC 6.8 (3.8-10.6) k/uL RBC 4.86 (4.30-5.90) m/uL Hgb 14.5 (13.0-17.5) gm/dL Hct 42.8 (39.0-53.0) % MCV 87.9 (80.0-100.0) fL MCH 29.8 (25.0-35.0) pg MCHC 33.8 (31.0-37.0) g/dL RDW 12.4 (11.5-15.5) % Plt Count 255 (150-450) k/uL MPV 7.8 Neutrophils % 83 % Lymphocytes % 11 % Monocytes % 4 % Eosinophils % 0 % Basophils % 1 % Neutrophils # 5.6 (1.3-7.7) k/uL Lymphocytes # 0.7 L (1.0-4.8) k/uL Monocytes # 0.2 (0-1.0) k/uL Eosinophils # 0.0 (0-0.7) k/uL Basophils # 0.1 (0-0.2) k/uL Sodium 133 L (137-145) mmol/L Potassium 4.4 (3.5-5.1) mmol/L Chloride 97 L (98-107) mmol/L Carbon Dioxide 27 (22-30) mmol/L Anion Gap 9 mmol/L BUN 19 (9-20) mg/dL Creatinine 0.95 (0.66-1.25) mg/dL Est GFR (CKD-EPI)AfAm >90 (>60 ml/min/1.73 sqM) Est GFR (CKD-EPI)NonAf >90 (>60 ml/min/1.73 sqM) Glucose 203 H (74-99) mg/dL Plasma Lactic Acid Baldev (0.7-2.0) mmol/L Calcium 8.5 (8.4-10.2) mg/dL Total Bilirubin 0.6 (0.2-1.3) mg/dL AST 34 (17-59) U/L ALT 22 (4-49) U/L Alkaline Phosphatase 64 (38-126) U/L Total Protein 7.4 (6.3-8.2) g/dL Albumin 4.3 (3.5-5.0) g/dL Urine Color Yellow Urine Appearance Clear (Clear) Urine pH 5.5 (5.0-8.0) Ur Specific [place] 1.030 (1.001-1.035) Urine Protein 3+ H (Negative) Urine Glucose (UA) Negative (Negative) Urine Ketones Trace H (Negative) Urine Blood Negative (Negative) Urine Nitrite Negative (Negative) Urine Bilirubin Negative (Negative) Urine Urobilinogen <2.0 (<2.0) mg/dL Ur Leukocyte Esterase Negative (Negative) Urine RBC 1 (0-5) /hpf Urine WBC 2 (0-5) /hpf Urine Mucus Few H (None) /hpf 11/08/20 Range/Units 14:55 WBC (3.8-10.6) k/uL RBC (4.30-5.90) m/uL Hgb (13.0-17.5) gm/dL Hct (39.0-53.0) % MCV (80.0-100.0) fL MCH (25.0-35.0) pg MCHC (31.0-37.0) g/dL RDW (11.5-15.5) % Plt Count (150-450) k/uL MPV Neutrophils % % Lymphocytes % % Monocytes % % Eosinophils % % Basophils % % Neutrophils # (1.3-7.7) k/uL Lymphocytes # (1.0-4.8) k/uL Monocytes # (0-1.0) k/uL Eosinophils # (0-0.7) k/uL Basophils # (0-0.2) k/uL Sodium (137-145) mmol/L Potassium (3.5-5.1) mmol/L Chloride (98-107) mmol/L Carbon Dioxide (22-30) mmol/L Anion Gap mmol/L BUN (9-20) mg/dL Creatinine (0.66-1.25) mg/dL Est GFR (CKD-EPI)AfAm (>60 ml/min/1.73 sqM) Est GFR (CKD-EPI)NonAf (>60 ml/min/1.73 sqM) Glucose (74-99) mg/dL Plasma Lactic Acid Baldev 1.5 (0.7-2.0) mmol/L Calcium (8.4-10.2) mg/dL Total Bilirubin (0.2-1.3) mg/dL AST (17-59) U/L ALT (4-49) U/L Alkaline Phosphatase (38-126) U/L Total Protein (6.3-8.2) g/dL Albumin (3.5-5.0) g/dL Urine Color Urine Appearance (Clear) Urine pH (5.0-8.0) Ur Specific [place] (1.001-1.035) Urine Protein (Negative) Urine Glucose (UA) (Negative) Urine Ketones (Negative) Urine Blood (Negative) Urine Nitrite (Negative) Urine Bilirubin (Negative) Urine Urobilinogen (<2.0) mg/dL Ur Leukocyte Esterase (Negative) Urine RBC (0-5) /hpf Urine WBC (0-5) /hpf Urine Mucus (None) /hpf - Radiology Data Radiology results: report reviewed, image reviewed Chest x-ray: Some patchy density present in the midlung perihilar region, possibly for loads. Cardiac via salicylates was a similar pains. No evident pneumothorax or pleural effusion. There are overlying leads. Patient is rotated., Correlate for pneumonia follow-up PA and lateral chest x-ray may be of benefit. Disposition Clinical Impression: Pneumonia due to COVID-19 virus Disposition: ADMITTED IP TO THIS HOSP Condition: Stable Is patient prescribed a controlled substance at d/c from ED?: No Referrals: James Varela MD [Primary Care Provider] - 1-2 days Time of Disposition: 16:38
--- NOTE | 2020-11-08 15:11 | XR ---
EXAMINATION TYPE: XR chest 1V portable DATE OF EXAM: 11/08/2020 COMPARISON: Prior chest x-ray 10/11/2018 HISTORY: Fever TECHNIQUE: Single frontal view of the chest is obtained. FINDINGS: Some patchy density present in the mid lung, perihilar region, possibly lower lobes. Cardi ac mediastinal silhouette shows a similar appearance. No evident pneumothorax or pleural effusion. Th ere are overlying leads. Patient is rotated. IMPRESSION: Correlate for pneumonia. Follow-up PA and lateral chest x-ray may be of benefit.
[2020-11-08 15:13] LABS: Basophils # (A) 0.1 k/uL (0-0.2); Basophils % (A) 1 %; Eosinophils % (A) 0 %; HCT 42.8 % (39.0-53.0); HGB 14.5 gm/dL (13.0-17.5); Lymphocytes # (A) 0.7 k/uL (1.0-4.8); Lymphocytes % (A) 11 %; MCH 29.8 pg (25.0-35.0); MCHC 33.8 g/dL (31.0-37.0); MCV 87.9 fL (80.0-100.0); Mean Platelet Volume 7.8; Monocytes # (A) 0.2 k/uL (0-1.0); Monocytes % (A) 4 %; Neutrophils # (A) 5.6 k/uL (1.3-7.7); Neutrophils % (A) 83 %; Platelet Count 255 k/uL (150-450); RBC 4.86 m/uL (4.30-5.90); RDW 12.4 % (11.5-15.5); WBC 6.8 k/uL (3.8-10.6)
[2020-11-08 15:21] LABS: Appearance,Urine Clear (Clear); Bilirubin,Urine Negative (Negative); Blood,Urine Negative (Negative); Color,Urine Yellow; Glucose,Urine (UA) Negative (Negative); Ketones,Urine Trace (Negative); Leukocyte Esterase,Urine Negative (Negative); Mucus,Urine Few /hpf; Nitrite,Urine Negative (Negative); PH, Urine 5.5 (5.0-8.0); Protein,Urine 3+ (Negative); RBC,Urine 1 /hpf (0-5); Urobilinogen,Urine <2.0 mg/dL (<2.0); WBC,Urine 2 /hpf (0-5)
[2020-11-08 15:23] LABS: ALT 22 U/L (4-49); AST 34 U/L (17-59); African American GFR (CKD) >90 (>60 ml/min/1.73 sqM); Albumin 4.3 g/dL (3.5-5.0); Alkaline Phosphatase 64 U/L (38-126); Anion Gap 9 mmol/L; Blood Urea Nitrogen 19 mg/dL (9-20); Calcium 8.5 mg/dL (8.4-10.2); Carbon Dioxide 27 mmol/L (22-30); Chloride 97 mmol/L (98-107); Glucose 203 mg/dL (74-99); Non-African American GFR(CKD) >90 (>60 ml/min/1.73 sqM); Potassium 4.4 mmol/L (3.5-5.1); Sodium 133 mmol/L (137-145); Total Bilirubin 0.6 mg/dL (0.2-1.3); Total Protein 7.4 g/dL (6.3-8.2)
[2020-11-08] MEDS ORDERED: NALOXONE 0.4 MG/ML 1 ML VIAL IV PRN ×2 (16:09→16:33)
[2020-11-08] MEDS ORDERED: NON FORMULARY DRUG (Acetaminophen [Tylenol] 325 MG Capsule) PO PRN (17:29)
[2020-11-08] MEDS ORDERED: HYDROcodone/APAP 5-325MG 1 EACH TAB PO PRN (17:33)
[2020-11-08] MEDS ORDERED: TEMAZEPAM 15 MG CAP PO PRN (17:33)
[2020-11-08] MEDS ORDERED: ALPRAZolam 0.25 MG TAB PO PRN (17:33)
[2020-11-08 18:25] LABS: D-Dimer 0.65 mg/L FEU (<0.60); INR 1.1 (<1.2); Prothrombin Time 11.2 sec (9.0-12.0)
[2020-11-08 18:27] LABS: C Reactive Protein 71.9 mg/L (<10.0)
[2020-11-08] MEDS: SODIUM CHLORIDE 0.9% 1,000 ML IV SCH (18:37)
--- NOTE | 2020-11-08 19:00 | HP ---
HISTORY AND PHYSICAL DATE OF SERVICE: 11/08/2020. CHIEF COMPLAINT: Fever and cough. Shortness of breath. HISTORY OF PRESENT ILLNESS: This 50-year-old gentleman with a past medical history of medical illnesses including diverticulitis, history of cholecystectomy, also had previous history of diabetes mellitus with hypoosmolar ketotic hypoglycemia also. The patient also had history of colostomy and perforated diverticulitis. Currently, the patient was not feeling well over the past several days and the patient's was apparently sick with Covid 19 and is admitted here in ICU. The patient tested Covid last week and because of increased symptoms, patient came to [facility] and was admitted for further evaluation and treatment at this time. The patient's symptoms worsened during the past 4 to 5 days according to him. The patient is not severely short of breath but some chest congestion is reported. A chest x-ray which was done in the ER which I personally reviewed showed bilateral pneumonia, right more than the left. Other labs showed normal CBC, sodium 133, inflammatory markers of Covid 19 not available yet. There is no history of any fever, rigor or chills at this time. PAST MEDICAL HISTORY: History of diverticulitis, history of colectomy, colostomy, history of diabetes mellitus as mentioned earlier. MEDICATIONS: Home medications prior to admission include: Vitamin B12, vitamin D3, zinc, vitamin C, Tylenol. Zestril, NovoLog scale. ALLERGIES: None. FAMILY HISTORY: History of myocardial infarction, prostate cancer in the family. SOCIAL HISTORY: No history of smoking. No history of alcohol intake. REVIEW OF SYSTEMS: ENT: No diminished vision. No diminished hearing. CARDIO system: No angina or palpitations. RESPIRATORY: As mentioned earlier. GI: As mentioned earlier. : No dysuria or hematuria. NERVOUS SYSTEM: No numbness or weakness. ALLERGY/IMMUNOLOGY: No asthma or hayfever. MUSCULOSKELETAL as mentioned earlier. HEMATOLOGY/ONCOLOGY: No history of anemia. ENDOCRINE: As mentioned earlier. CONSTITUTIONAL: As mentioned earlier. DERMATOLOGY: Negative. RHEUMATOLOGY negative. PSYCHIATRY as mentioned earlier. PHYSICAL EXAMINATION: The patient is alert and oriented times three. Pulse is 109, blood pressure is 140/60. Respiration 18, temperature is 103 degrees, pulse ox 98% on 2 L. HEENT: Conjunctivae normal. NECK: No JVD. CARDIOVASCULAR: S1, S2 muffled. RESPIRATORY: Breath sounds diminished in the bases. A few scattered rhonchi and crackles. ABDOMEN: Soft, obese, nontender. LEGS are no edema. No swelling. NERVOUS SYSTEM: Higher functions as mentioned earlier. Moves all 4 limbs. No focal motor or sensory deficits. LYMPHATICS: No lymph nodes palpable in the neck, axillae or groin. JOINTS: No active deforming arthropathy. LABS: 0.7 sodium 133. Other labs are noted. ASSESSMENT: 1. Acute COVID-19 infection with acute Covid 19 bilateral interstitial pneumonia. 2. Hyponatremia. 3. History of diabetes type 2 and diabetic ketoacidosis. 4. History of diverticulitis and perforation, colectomy and colostomy. 5. Obesity with body mass of 38.7. 6. FULL CODE. RECOMMENDATIONS AND DISCUSSION: In this 50-year-old gentleman who presented with multiple medical issues, we will monitor the patient closely, continue the current medications, management and symptomatic treatment. I recommend Infectious Disease and Pulmonary evaluation for possible Remdesivir because of the relatively short duration of symptoms and the fact that the patient's is admitted in ICU. Otherwise, I would recommend conservative line of management for Covid. Otherwise ensure oxygenation. Repeat labs will be ordered. A copy of dictation is being forwarded to Dr. Varela, who is the primary physician. MMTANVIRL / VANDANAN: [id number] / [email or web address]
[2020-11-08 22:55] LABS: Ferritin 578.3 ng/mL (22.0-322.0)
[2020-11-09] MEDS: ZINC SULFATE 220 MG CAP PO SCH ×2 (00:11→07:14)
[2020-11-09] MEDS: ENOXAPARIN 40 MG/0.4 ML SYRINGE SQ SCH ×2 (00:11→07:14)
[2020-11-09] MEDS: ACETAMINOPHEN TAB 325 MG TAB PO PRN ×4 (00:13→20:37)
[2020-11-09] MEDS: SODIUM CHLORIDE 0.9% 1,000 ML IV SCH ×2 (05:54→21:00)
[2020-11-09] MEDS: CHOLECALCIFEROL 25 MCG (1000 IU) TABLET PO SCH (07:14)
[2020-11-09] MEDS: CYANOCOBALAMIN 500 MCG TAB PO SCH (07:14)
[2020-11-09] MEDS: lisinopriL 10 MG TAB PO SCH (07:14)
[2020-11-09] MEDS: ASCORBIC ACID 500 MG TAB PO SCH (07:14)
[2020-11-09 07:55] LABS: Glucose,Whole Blood 172 mg/dL (75-99)
[2020-11-09 10:31] LABS: Basophils # (A) 0.02 X 10*3/uL (0.00-0.10); Basophils % (A) 0.4 %; Eosinophils # (A) 0.01 X 10*3/uL (0.04-0.35); Eosinophils % (A) 0.2 %; HCT 39.9 % (39.6-50.0); Lymphocytes % (A) 12.1 %; MCH 29.5 pg (27.0-32.0); MCHC 32.6 g/dL (32.0-37.0); MCV 90.7 fL (80.0-97.0); Mean Platelet Volume 10.1 fL (9.5-12.2); Monocytes # (A) 0.21 X 10*3/uL (0.20-1.00); Monocytes % (A) 4.3 %; Neutrophils # (A) 4.09 X 10*3/uL (1.80-7.70); Neutrophils % (A) 82.8 %; Platelet Count 216 X 10*3/uL (140-440); RDW 12.1 % (11.5-14.5); WBC 4.94 X 10*3/uL (4.50-10.00)
[2020-11-09 11:27] LABS: African American GFR (CKD) 99.8 (60.0-200.0); Anion Gap 9.3 mmol/L (4.00-12.00); Calcium 7.8 mg/dL (8.7-10.3); Carbon Dioxide 26.7 mmol/L (21.6-31.8); Non-African American GFR(CKD) 86.2 (60.0-200.0); Potassium 4.2 mmol/L (3.5-5.5)
[2020-11-09] MEDS: DEXAMETHASONE SOD PHOSPHATE 10 MG/ML 1 ML VIAL IV SCH (12:06)
[2020-11-09] MEDS: INSULIN ASPART (NovoLOG) 100 UNIT/ML VIAL SQ SCH ×5 (12:06→20:38)
[2020-11-09 12:24] LABS: Glucose,Whole Blood 207 mg/dL (75-99)
[2020-11-09] MEDS: COLCHICINE 0.6 MG EACH PO SCH ×2 (12:35→20:38)
[2020-11-09] MEDS ORDERED: REMDESIVIR 200 MG in SODIUM CHLORIDE 0.9% 250 ML IVPB ONE (13:00)
--- NOTE | 2020-11-09 13:23 | P.CNPUL ---
History of Present Illness Consult date: 11/09/20 Requesting physician: James Varela Reason for consult: dyspnea Chief complaint: Nasal congestion, fever, body aches, COVID 19 History of present illness: 50-year-old white male patient of Dr. James Varela was and daughter were recently positive for COVID 19 pneumonia, and his was hospitalized for the same, presented to the hospital on 11/08/2020 complaining of a fever and cough. Patient started having symptoms since last Monday 6 days ago initially started with nasal congestion, which progressed to body aches, fever, loss of taste, cough. She denied any difficulty breathing, no chest pain or discomfort. No headache, no nausea vomiting, she did admit to having diarrhea. Complains of fatigue, and chills. His COVID 19 PCR was positive on 11/06/2020. Chest x-ray showed patchy density in the mid lung, perihilar region, possibly lower lobes. Lab work revealed lymphopenia with lymphocyte count of 0.6, white blood cell count was 4.94, hemoglobin was 13, electrolytes and renal profile were unremarkable, d-dimer was 0.65, lactic acid was 1.5, ferritin was 578, LDH was 646, CRP was 71.9, LFTs were within normal limits, urinalysis showed 3+ protein, trace ketones but negative for any sign of infection. Patient has been afebrile since admission, he was 10 3F on presentation, over the last 24 hours his febrile. Has somewhat improved, and his T-max in the last 24 hours is 102.7F for which patient is getting antipyretics. ID service has been consulted, he was started on Remdesivir, he is currently requiring 2 L of oxygen his pulse ox is 94%. Is on IV dexamethasone 6 mg daily, prophylactic Lovenox, and vitamins C, D, and zinc, he is on gentle IV hydration with 0.9 normal saline at a rate of 75 ML per hour, his past medical history significant for diverticulitis with history of colectomy with colostomy Review of Systems All systems: negative Constitutional: Reports fatigue, Reports fever, Reports malaise, Reports weakness, Denies chills Eyes: denies blurred vision, denies pain Ears, nose, mouth and throat: Denies headache, Denies sore throat Cardiovascular: Denies chest pain, Denies shortness of breath Respiratory: Reports congestion, Reports cough Gastrointestinal: Reports diarrhea, Denies abdominal pain, Denies nausea, Denies vomiting Musculoskeletal: Denies myalgias Integumentary: Denies pruritus, Denies rash Neurological: Denies numbness, Denies weakness Psychiatric: Denies anxiety, Denies depression Endocrine: Denies fatigue, Denies weight change Past Medical History Past Medical History: Diabetes Mellitus, Hypertension Additional Past Medical History / Comment(s): diverticulitis History of Any Multi-Drug Resistant Organisms: None Reported Additional Past Surgical History / Comment(s): colectomy with colostomy Past Psychological History: No Psychological Hx Reported Smoking Status: Never smoker Past Alcohol Use History: None Reported Past Drug Use History: None Reported - Past Family History Brother(s) Family Medical History: Cancer, Myocardial Infarction ([place]) Additional Family Medical History / Comment(s): prostate ca. Medications and Allergies Home Medications Medication Instructions Recorded Confirmed Type Acetaminophen [Tylenol] 650 mg PO Q8H PRN 11/08/20 11/08/20 History Ascorbic Acid [Vitamin C] 500 mg PO DAILY 11/08/20 11/08/20 History Cholecalciferol [Vitamin D3 (25 25 mcg PO DAILY 11/08/20 11/08/20 History Mcg = 1000 Iu)] Cyanocobalamin [Vitamin B-12] 500 mcg PO DAILY 11/08/20 11/08/20 History INSULIN ASPART (NovoLOG) [NovoLOG 10 unit SQ TID 11/08/20 11/08/20 History (formulary)] Lisinopril [Zestril] 10 mg PO DAILY 11/08/20 11/08/20 History Zinc 50 mg PO DAILY 11/08/20 11/08/20 History Allergies Allergy/AdvReac Type Severity Reaction Status Date / Time No Known Allergies Allergy Verified 10/10/18 22:03 Physical Exam Vitals: Vital Signs Temp Pulse Pulse Resp BP BP Pulse Ox 11/09/20 12:10 102.7 F H 109 H 14 134/69 11/09/20 08:37 98.9 F 11/09/20 07:17 101.0 F H 109 H 14 137/70 93 L 11/09/20 05:56 102.6 F H 112 H 20 153/77 94 L 11/09/20 05:00 108 H 20 93 L 11/09/20 04:00 108 H 18 96 11/09/20 03:00 102 H 18 11/09/20 02:50 99.9 F H 102 H 18 139/82 97 11/09/20 01:00 110 H 18 155/86 96 11/09/20 00:06 102.8 F H 111 H 18 158/88 98 11/08/20 18:38 98.5 F 87 18 125/82 97 11/08/20 16:42 99.5 F 100 18 122/66 96 11/08/20 15:23 102.4 F H 109 H 18 148/67 98 11/08/20 15:08 103 F H 115 H 20 158/85 97 11/08/20 14:53 103 F H 118 H 20 148/81 99 11/08/20 14:38 103 F H 116 H 20 149/86 99 11/08/20 14:23 103.0 F H 114 H 18 142/69 95 Intake and Output 11/08/20 11/09/20 11/09/20 22:59 06:59 14:59 Intake Total 238 Balance 238 Intake: Oral 238 Other: # Voids 1 Weight 122.47 kg GENERAL EXAM: Alert, very pleasant, 50-year-old white male, on 2 L of oxygen a pulse ox of 92%, comfortable in no apparent distress. HEAD: Normocephalic/atraumatic. EYES: Normal reaction of pupils, equal size. Conjunctiva pink, sclera white. NOSE: Clear with pink turbinates. THROAT: No erythema or exudates. NECK: No masses, no JVD, no thyroid enlargement, no adenopathy. CHEST: No chest wall deformity. Symmetrical expansion. LUNGS: Equal air entry with no crackles, wheeze, rhonchi or dullness. CVS: Regular rate and rhythm, normal S1 and S2, no gallops, no murmurs, no rubs ABDOMEN: Soft, nontender. No hepatosplenomegaly, normal bowel sounds, no guarding or rigidity. EXTREMITIES: No clubbing, no edema, no cyanosis, 2+ pulses and upper and lower extremities. MUSCULOSKELETAL: Muscle strength and tone normal. SPINE: No scoliosis or deformity SKIN: No rashes CENTRAL NERVOUS SYSTEM: Alert and oriented -3. No focal deficits, tone is normal in all 4 extremities. PSYCHIATRIC: Alert and oriented -3. Appropriate affect. Intact judgment and insight. Results - Laboratory Findings CBC and BMP: 11/09/20 06:43 11/09/20 06:43 PT/INR, D-dimer PT 11.2 sec (9.0-12.0) 11/08/20 17:58 INR 1.1 (<1.2) 11/08/20 17:58 D-Dimer 0.65 mg/L FEU (<0.60) H 11/08/20 17:58 Abnormal lab findings: Abnormal Labs 11/08/20 11/08/20 11/08/20 14:52 14:52 14:52 Lymphocytes # 0.7 L Eosinophils # D-Dimer Sodium 133 L Chloride 97 L Glucose 203 H POC Glucose (mg/dL) Calcium Ferritin Lactate Dehydrogenase C-Reactive Protein Urine Protein 3+ H Urine Ketones Trace H Urine Mucus Few H 11/08/20 11/08/20 11/09/20 17:58 17:58 06:43 Lymphocytes # 0.60 L Eosinophils # 0.01 L D-Dimer 0.65 H Sodium Chloride Glucose POC Glucose (mg/dL) Calcium Ferritin 578.3 H Lactate Dehydrogenase 646 H C-Reactive Protein 71.9 H Urine Protein Urine Ketones Urine Mucus 11/09/20 11/09/20 11/09/20 06:43 07:20 12:04 Lymphocytes # Eosinophils # D-Dimer Sodium Chloride Glucose 183 H POC Glucose (mg/dL) 172 H 207 H Calcium 7.8 L Ferritin Lactate Dehydrogenase C-Reactive Protein Urine Protein Urine Ketones Urine Mucus - Diagnostic Findings Chest x-ray: report reviewed, image reviewed Assessment and Plan Plan: Assessment: #1. Acute hypoxic respiratory failure related to acute COVID 19 related pneumonitis, onset of symptoms was 6 days prior to presentation, tested positive on 11/06/2020, patient was started on Remdesivir on 11/09/2020, dexamethasone, prophylactic Lovenox 40 mg daily. Patient has a known exposure to his and daughter with COVID 19 infection and patient's was hospitalized with COVID 19 pneumonia #2. Fever, chest congestion, body aches, loss of taste, cough, related to the above #3. Lymphopenia, elevated inflammatory markers related to acute COVID 19 infection #4. Diabetes mellitus type 2 #5. History of perforated diverticulitis status post bowel resection and colostomy Plan: Continue IV Decadron, continue prophylactic Lovenox, agree with the Remdesivir initiation, chest x-ray labs have been reviewed. We'll obtain follow-up chest x-ray tomorrow follow-up inflammatory markers, continue monitoring febrile pattern dyspnea, and oxygenation pattern. I performed a history & physical examination of the patient and discussed their management with my nurse practitioner, Ailyn Yoon. I reviewed the nurse practitioner's note and agree with the documented findings and plan of care. Lung sounds are positive for dim breath sounds. The findings and the impression was discussed with the patient. I attest to the documentation by the nurse practitioner. Time with Patient: Greater than 30
--- NOTE | 2020-11-09 16:14 | CT ---
EXAMINATION TYPE: CT angio chest DATE OF EXAM: 11/09/2020 4:05 PM COMPARISON: Chest x-ray from 2 days ago HISTORY: cough, SOB, +covid CT DLP: 596.3 mGycm Automated exposure control for dose reduction was used. CONTRAST: CTA scan of the thorax is performed with IV Contrast, patient injected with 75cc mL of Isovue 370, pu lmonary embolism protocol. MIP images are created and reviewed. FINDINGS: LUNGS: Multifocal areas of groundglass opacity bilaterally are present. There are areas of organizing consolidation in the lower lobes noted. No pleural effusion or pneumothorax seen bilaterally. MEDIASTINUM: There is most dense contrast in the SVC. There is poor contrast opacification of the aor ta and pulmonary arteries. There is no large saddle central pulmonary embolism, smaller segmental rodrigez bsegmental PE cannot be excluded on this study. Coronary artery calcification in the proximal LAD not ed. Heart size upper limits of normal. There are prominent bilateral hilar lymph nodes along with pre vascular, AP window, and subcarinal lymph nodesr. No pericardial effusion is seen. Ascending aortic aneurysm up to 4.9 cm in diameter axial image 74. OTHER: Suspect fat containing ventral wall hernia partially imaged in the upper abdomen. IMPRESSION: 1. Suboptimal study without central saddle pulmonary embolism. Cannot exclude smaller segmental and s ubsegmental PE on this study. 2. Bilateral multifocal groundglass opacities and organizing consolidations consistent with known Cov id-19 infection greatest in the mid to lower lungs. 3. There is 4.9 cm ascending aortic aneurysm.
--- NOTE | 2020-11-09 16:59 | PN ---
PROGRESS NOTE DATE OF SERVICE: 11/09/2020 INTERVAL HISTORY: This is a 50-year-old gentleman who was admitted with acute COVID-19 infection with COVID-19 bilateral pneumonia. He is being closely monitored at this time. The patient is also seen by multiple consultants including Infectious Disease as well as Pulmonary. Remdesivir was initiated. The patient is being closely monitored. PAST MEDICAL HISTORY: Reviewed. REVIEW OF SYMPTOMS: CARDIOVASCULAR: No angina. RESPIRATORY: As mentioned earlier. GI: As mentioned earlier. : No dysuria. NERVOUS SYSTEM: No numbness or weakness. CURRENT MEDICATIONS: Reviewed and include Tylenol, [place], vitamin C, [place], vitamin D3, Decadron, zinc. Doses reviewed. PHYSICAL EXAMINATION: GENERAL: Patient is alert and oriented times three. VITAL SIGNS: Pulse 109, blood pressure 134/69, respirations 14, temperature 102.7, pulse ox 93% on 2 liters. HEENT: Conjunctivae normal. Oral mucosa moist. NECK: No jugular venous distention. No carotid bruits. No lymph node enlargement. RESPIRATORY: Breath sounds diminished at the bases. No rhonchi, no crackles. HEART: S1 and S2, muffled. ABDOMEN: Soft, no tenderness. No masses palpable. EXTREMITIES: No edema, no swelling. NERVOUS: No focal deficits. LABORATORY DATA: CBC within normal limits. Sodium 137, potassium 4.2 glucose 172. Inflammatory markers are elevated. ASSESSMENT: 1. Acute COVID-19 infection with acute COVID-19 bilateral interstitial pneumonia with continued fever. 2. Hyponatremia. 3. History of diabetes mellitus type 2 with acute diabetic ketoacidosis. 4. History of diverticulitis and perforation with colectomy and colostomy. 5. Obesity with body mass index of 38.7. 6. FULL CODE. 7. Elevated inflammatory markers of COVID-19. 8. Elevated D-dimer. RECOMMENDATION AND DISCUSSION: In this 50-year-old gentleman who presented with multiple complex medical issues, continue the current management, continue symptomatic treatment. The patient has continued fever at this time. D-dimer is elevated. I would recommend a CT of the chest to complete the workup. I would also recommend procalcitonin and a set of cultures. Closely follow with Infectious Disease and Pulmonary. Overall prognosis guarded. Further recommendations to follow. See orders for details. MMODL / IJN: [id number] /
[2020-11-09 17:31] LABS: Glucose,Whole Blood 243 mg/dL (75-99)
[2020-11-09] MEDS: IBUPROFEN 400 MG TAB PO PRN (17:44)
[2020-11-09 19:31] LABS: Glucose,Whole Blood 214 mg/dL (75-99)
--- NOTE | 2020-11-09 19:49 | CONS ---
CONSULTATION DATE OF SERVICE: 11/09/2020 REASON FOR CONSULTATION: COVID-19 infection. HISTORY OF PRESENT ILLNESS: The patient is a 50-year-old male who presented to the ER yesterday for evaluation of fever and cough. The patient symptoms have been going on since last Monday to Monday, in this patient who starting having body aches, some sore throat, cough which has been moderate in intensity, not bringing up any sputum. Complaining of shortness of breath. The patient was diagnosed with Covid the day before presentation to hospital. However, with worsening symptoms, the patient came to the ER. On arrival to the ER, the patient did have fever of 103 degrees Fahrenheit. The patient was hypoxic with O2 sats of 93% at one point and is currently on 95% on 2 L nasal cannula. The patient did have a normal white count with evidence of lymphopenia. D-dimer was elevated at 0.65. Kidney function was normal. Liver enzymes are normal. LDH of 646 and CRP 71.9. The patient did have a chest x-ray shows correlate for pneumonia. The patient did have a CT angiogram of the chest that was negative for PE, did show cannot exclude small subsegmental PE. Mild multifocal ground-glass opacity. Infection Disease was consulted for management of underlying COVID-19 infection. REVIEW OF SYSTEMS: Positive points have been mentioned in HPI. Rest of systems are negative. PAST MEDICAL HISTORY: Diverticulitis. PAST SURGICAL HISTORY: Colectomy and colostomy. SOCIAL HISTORY: Denies smoking, drinking or drug use. FAMILY HISTORY: Brother history of [place] and prostate cancer. ALLERGIES: No known drug allergies. MEDICATIONS: The patient is currently on Tylenol, [place], Xanax, vitamin C, vitamin D3, colchicine, Lovenox, NovoLog, Zestril, zinc sulfate. PHYSICAL EXAMINATION: Blood pressure 138/65, pulse of 103, temperature 99.6, T-max 102.7, 95% on 2 L nasal cannula. General description is a middle-aged male up in the bed in no distress. No tachypnea or accessory muscles of respiration use. HEENT: Examination shows no pallor or scleral icterus. Oral mucous membranes dry. NECK: Trachea central. No thyromegaly. LUNGS: Unlabored breathing, decreased intensity of breath sounds bilaterally. No wheeze. HEART S1, S2. Regular rate and rhythm. ABDOMEN: Soft, no tenderness. No guarding. No rigidity. EXTREMITIES: No edema of the feet. SKIN examination: No rash or mass palpable. NEUROLOGICAL: Patient is awake, alert, oriented times three. Mood and affect normal. LABS: Hemoglobin is 13.5, white count 4.9, BUN of 19, creatinine 1.0. Elevated inflammatory markers as mentioned above. DIAGNOSTIC IMPRESSION AND PLAN: Patient admitted to the hospital with increasing shortness of breath and cough with fever in this patient with diagnosed with acute COVID-19 infection. Did have evidence of hypoxemia with onset of symptoms less than a week and hypoxemia. The patient does qualify for Remdesivir therapy. PLAN: 1. The patient is started on Remdesivir 200 mg daily followed by 100 mg daily for 4 days. 2. Dexamethasone 1000 mg IV daily along with Lovenox, zinc and ascorbic acid. 3. Droplet isolation and respiratory support. 4. We will follow on clinical condition and culture to further adjust medication if needed. Thank you for this consultation. We will follow this patient along with you. MMODL / IJN: [id number] /
[2020-11-10 00:23] LABS: Glucose,Whole Blood 179 mg/dL (75-99)
[2020-11-10] MEDS: INSULIN ASPART (NovoLOG) 100 UNIT/ML VIAL SQ SCH ×8 (00:49→22:16)
[2020-11-10] MEDS: IBUPROFEN 400 MG TAB PO PRN (03:58)
[2020-11-10 07:48] LABS: Glucose,Whole Blood 182 mg/dL (75-99)
[2020-11-10] MEDS: ENOXAPARIN 40 MG/0.4 ML SYRINGE SQ SCH (08:14)
[2020-11-10] MEDS: ASCORBIC ACID 500 MG TAB PO SCH (08:14)
[2020-11-10] MEDS: COLCHICINE 0.6 MG EACH PO SCH ×2 (08:15→22:17)
[2020-11-10] MEDS: ZINC SULFATE 220 MG CAP PO SCH (08:15)
[2020-11-10] MEDS: CHOLECALCIFEROL 25 MCG (1000 IU) TABLET PO SCH (08:15)
[2020-11-10] MEDS: CYANOCOBALAMIN 500 MCG TAB PO SCH (08:15)
[2020-11-10] MEDS: lisinopriL 10 MG TAB PO SCH (08:15)
[2020-11-10] MEDS: DEXAMETHASONE SOD PHOSPHATE 10 MG/ML 1 ML VIAL IV SCH (08:17)
[2020-11-10] MEDS: SODIUM CHLORIDE 0.9% 1,000 ML IV SCH ×2 (08:18→22:18)
[2020-11-10 08:32] LABS: MCH 29.3 pg (27.0-32.0); MCHC 31.6 g/dL (32.0-37.0); MCV 92.7 fL (80.0-97.0); Mean Platelet Volume 10.4 fL (9.5-12.2); Platelet Count 230 X 10*3/uL (140-440); RDW 12.1 % (11.5-14.5); WBC 6.22 X 10*3/uL (4.50-10.00)
[2020-11-10 09:22] LABS: Basophils # (A) 0.01 X 10*3/uL (0.00-0.10); Basophils % (A) 0.2 %; Eosinophils # (A) 0 X 10*3/uL (0.04-0.35); Eosinophils % (A) 0 %; Lymphocytes # (A) 0.43 X 10*3/uL (0.90-5.00); Lymphocytes % (A) 6.9 %; Monocytes # (A) 0.15 X 10*3/uL (0.20-1.00); Monocytes % (A) 2.4 %; Neutrophils # (A) 5.61 X 10*3/uL (1.80-7.70); Neutrophils % (A) 90.2 %
--- NOTE | 2020-11-10 09:23 | P.PN ---
Subjective Progress Note Date: 11/10/20 Principal diagnosis: Covid 19 infection Covid 19 bilateral pneumonia 50-year-old male was evaluate this a.m. Patient was admitted with Covid 19 infection with Covid 19 bilateral pneumonia. Patient continues to endorse dyspnea on exertion, fever/chills and generalized malaise. Multiple consult including pulmonary critical care infectious disease. Will continue to monitor patient closely. Objective - Vital Signs Vital signs: Vital Signs Temp 98.3 F 11/10/20 04:13 Pulse 90 11/10/20 08:00 Resp 18 11/10/20 01:30 BP 129/68 11/10/20 08:00 Pulse Ox 100 11/10/20 01:30 Intake & Output 11/09/20 11/10/20 11/10/20 18:59 06:59 18:59 Intake Total 356 240 Balance 356 240 Weight 122.47 kg Intake: Oral 356 240 Other: # Voids 1 1 - Constitutional General appearance: Present: obese - EENT Eyes: Present: EOMI, PERRLA ENT: Present: pharyngeal erythema Ears: bilateral: normal - Neck Neck: Present: normal ROM Carotids: bilateral: upstroke normal - Respiratory Respiratory: bilateral: diminished (Anterior lung escudero), rhonchi (Posterior bases course rhonchi) - Cardiovascular Details: Normal sinus rhythm Heart rate: 92 Rhythm: regular Heart sounds: normal: S1, S2 - Peripheral pulses radial pulse Peripheral Pulses: bilateral: Normal dorsalis pedis Peripheral Pulses: bilateral: Normal - Gastrointestinal General gastrointestinal: Present: normal bowel sounds - Integumentary Integumentary: Present: decreased turgor - Neurologic Neurologic: Present: CNII-XII intact - Musculoskeletal Musculoskeletal: Present: generalized weakness - Psychiatric Psychiatric: Present: A&O x's 3, appropriate affect, intact judgment & insight - Labs CBC & Chem 7: 11/10/20 04:58 11/09/20 06:43 Labs: Abnormal Lab Results - Last 24 Hours (Table) 11/09/20 11/09/20 11/09/20 Range/Units 06:43 06:43 06:43 RBC (4.40-5.60) X 10*6/uL Hgb (13.0-17.0) g/dL Hct (39.6-50.0) % MCHC (32.0-37.0) g/dL Lymphocytes # 0.60 L (0.90-5.00) X 10*3/uL Eosinophils # 0.01 L (0.04-0.35) X 10*3/uL D-Dimer (<0.60) mg/L FEU Glucose 183 H (70-110) mg/dL POC Glucose (mg/dL) (75-99) mg/dL Calcium 7.8 L (8.7-10.3) mg/dL Procalcitonin 0.20 H (0.02-0.09) ng/mL 11/09/20 11/09/20 11/09/20 Range/Units 12:04 17:30 19:30 RBC (4.40-5.60) X 10*6/uL Hgb (13.0-17.0) g/dL Hct (39.6-50.0) % MCHC (32.0-37.0) g/dL Lymphocytes # (0.90-5.00) X 10*3/uL Eosinophils # (0.04-0.35) X 10*3/uL D-Dimer (<0.60) mg/L FEU Glucose (70-110) mg/dL POC Glucose (mg/dL) 207 H 243 H 214 H (75-99) mg/dL Calcium (8.7-10.3) mg/dL Procalcitonin (0.02-0.09) ng/mL 11/10/20 11/10/20 11/10/20 Range/Units 00:20 04:58 04:58 RBC 4.10 L (4.40-5.60) X 10*6/uL Hgb 12.0 L (13.0-17.0) g/dL Hct 38.0 L (39.6-50.0) % MCHC 31.6 L (32.0-37.0) g/dL Lymphocytes # (0.90-5.00) X 10*3/uL Eosinophils # (0.04-0.35) X 10*3/uL D-Dimer 1.86 H (<0.60) mg/L FEU Glucose (70-110) mg/dL POC Glucose (mg/dL) 179 H (75-99) mg/dL Calcium (8.7-10.3) mg/dL Procalcitonin (0.02-0.09) ng/mL 11/10/20 Range/Units 07:45 RBC (4.40-5.60) X 10*6/uL Hgb (13.0-17.0) g/dL Hct (39.6-50.0) % MCHC (32.0-37.0) g/dL Lymphocytes # (0.90-5.00) X 10*3/uL Eosinophils # (0.04-0.35) X 10*3/uL D-Dimer (<0.60) mg/L FEU Glucose (70-110) mg/dL POC Glucose (mg/dL) 182 H (75-99) mg/dL Calcium (8.7-10.3) mg/dL Procalcitonin (0.02-0.09) ng/mL Microbiology - Last 24 Hours (Table) 11/08/20 14:52 Blood Culture - Preliminary Blood No Growth after 24 hours 11/08/20 14:52 Blood Culture - Preliminary Blood No Growth after 24 hours - Imaging and Cardiology Chest x-ray: pending Assessment and Plan Assessment: Acute Covid 19 infection with acute Covid 19 bilateral interstitial pneumonia hyponatremia diabetes mellitus type II hypertension hyperlipidemia elevated inflammatory markers of Covid 19 full code Plan: Acute Covid 19 infection bilateral interstitial pneumonia continue consultation and recommendations from pulmonary critical care infectious disease hyponatremia continue to monitor diagnostic labs diabetes mellitus type II continue sliding scale continue to monitor diagnostic labs and imaging studies continue medical management Time with Patient: Greater than 30
--- NOTE | 2020-11-10 09:54 | XR ---
EXAMINATION TYPE: XR chest 1V portable DATE OF EXAM: 11/10/2020 CLINICAL HISTORY: Difficulty breathing and covid-19 progress study. TECHNIQUE: Single AP portable upright view of the chest is obtained. COMPARISON: Chest x-ray from 2 days earlier. CTA chest from 1 day earlier. FINDINGS: Multifocal bilateral opacities remain present. Findings more prominent from prior x-ray. C ardiac silhouette size is stable and upper limits of normal. Osseous structures are intact. IMPRESSION: Worsening bilateral multifocal infiltrates consistent with covid-19 infection progression .
[2020-11-10 12:17] LABS: Glucose,Whole Blood 243 mg/dL (75-99)
[2020-11-10] MEDS: REMDESIVIR 100 MG in SODIUM CHLORIDE 0.9% 250 ML IVPB SCH (12:31)
[2020-11-10 12:44] LABS: African American GFR (CKD) 99.8 (60.0-200.0); Anion Gap 9.6 mmol/L (4.00-12.00); C Reactive Protein 10.7 mg/dL (0.0-0.8); Calcium 8.2 mg/dL (8.7-10.3); Carbon Dioxide 27.4 mmol/L (21.6-31.8); Non-African American GFR(CKD) 86.2 (60.0-200.0); Potassium 4.5 mmol/L (3.5-5.5)
--- NOTE | 2020-11-10 13:21 | P.PN ---
Subjective Progress Note Date: 11/10/20 Principal diagnosis: Shortness of breath, COVID 19 pneumonitis 50-year-old white male patient of Dr. James Varela was and daughter were recently positive for COVID 19 pneumonia, and his was hospitalized for the same, presented to the hospital on 11/08/2020 complaining of a fever and cough. Patient started having symptoms since last Monday 6 days ago initially started with nasal congestion, which progressed to body aches, fever, loss of taste, cough. She denied any difficulty breathing, no chest pain or discomfort. No headache, no nausea vomiting, she did admit to having diarrhea. Complains of fatigue, and chills. His COVID 19 PCR was positive on 11/06/2020. Chest x-ray showed patchy density in the mid lung, perihilar region, possibly lower lobes. Lab work revealed lymphopenia with lymphocyte count of 0.6, white blood cell count was 4.94, hemoglobin was 13, electrolytes and renal profile were unremarkable, d-dimer was 0.65, lactic acid was 1.5, ferritin was 578, LDH was 646, CRP was 71.9, LFTs were within normal limits, urinalysis showed 3+ protein, trace ketones but negative for any sign of infection. Patient has been afebrile since admission, he was 10 3F on presentation, over the last 24 hours his febrile. Has somewhat improved, and his T-max in the last 24 hours is 102.7F for which patient is getting antipyretics. ID service has been consulted, he was started on Remdesivir, he is currently requiring 2 L of oxygen his pulse ox is 94%. Is on IV dexamethasone 6 mg daily, prophylactic Lovenox, and vitamins C, D, and zinc, he is on gentle IV hydration with 0.9 normal saline at a rate of 75 ML per hour, his past medical history significant for diverticulitis with history of colectomy with colostomy On 11/10/2020 patient seen in follow-up on medical surgical floor. He is resting comfortably in bed, he states she is feeling a little better, however his chest x-ray shows some worsening in the appearance of airspace disease in the right lung, compared to yesterday. There is also multifocal left lung opacities as well. Today is day 2 of Remdesivir treatment, patient continues on Decadron, prophylactic anticoagulation and multivitamins. Room air pulse ox 94%, patient is afebrile, breathing is nonlabored, no complaint of chest discomfort no nausea or vomiting. Objective - Vital Signs Vital signs: Vital Signs Temp 98.9 F 11/10/20 09:49 Pulse 94 11/10/20 09:49 Resp 18 11/10/20 01:30 BP 95/61 11/10/20 09:49 Pulse Ox 94 L 11/10/20 09:49 Intake & Output 11/09/20 11/10/20 11/10/20 18:59 06:59 18:59 Intake Total 356 240 Balance 356 240 Weight 122.47 kg Intake: Oral 356 240 Other: # Voids 1 1 - Exam GENERAL EXAM: Alert, very pleasant, 50-year-old white male, on room air with a pulse ox of 94%, comfortable in no apparent distress. HEAD: Normocephalic/atraumatic. EYES: Normal reaction of pupils, equal size. Conjunctiva pink, sclera white. NOSE: Clear with pink turbinates. THROAT: No erythema or exudates. NECK: No masses, no JVD, no thyroid enlargement, no adenopathy. CHEST: No chest wall deformity. Symmetrical expansion. LUNGS: Equal air entry with no crackles, wheeze, rhonchi or dullness. CVS: Regular rate and rhythm, normal S1 and S2, no gallops, no murmurs, no rubs ABDOMEN: Soft, nontender. No hepatosplenomegaly, normal bowel sounds, no guar ding or rigidity. EXTREMITIES: No clubbing, no edema, no cyanosis, 2+ pulses and upper and lower extremities. MUSCULOSKELETAL: Muscle strength and tone normal. SPINE: No scoliosis or deformity SKIN: No rashes CENTRAL NERVOUS SYSTEM: Alert and oriented -3. No focal deficits, tone is normal in all 4 extremities. PSYCHIATRIC: Alert and oriented -3. Appropriate affect. Intact judgment and insight. - Labs CBC & Chem 7: 11/10/20 04:58 11/10/20 04:58 Labs: Abnormal Lab Results - Last 24 Hours (Table) 11/09/20 11/09/20 11/09/20 Range/Units 06:43 17:30 19:30 RBC (4.40-5.60) X 10*6/uL Hgb (13.0-17.0) g/dL Hct (39.6-50.0) % MCHC (32.0-37.0) g/dL Lymphocytes # (0.90-5.00) X 10*3/uL Monocytes # (0.20-1.00) X 10*3/uL Eosinophils # (0.04-0.35) X 10*3/uL D-Dimer (<0.60) mg/L FEU BUN/Creatinine Ratio (12.00-20.00) Ratio Glucose (70-110) mg/dL POC Glucose (mg/dL) 243 H 214 H (75-99) mg/dL Calcium (8.7-10.3) mg/dL Lactate Dehydrogenase (120-246) U/L C-Reactive Protein (0.0-0.8) mg/dL Procalcitonin 0.20 H (0.02-0.09) ng/mL 11/10/20 11/10/20 11/10/20 Range/Units 00:20 04:58 04:58 RBC 4.10 L (4.40-5.60) X 10*6/uL Hgb 12.0 L (13.0-17.0) g/dL Hct 38.0 L (39.6-50.0) % MCHC 31.6 L (32.0-37.0) g/dL Lymphocytes # 0.43 L (0.90-5.00) X 10*3/uL Monocytes # 0.15 L (0.20-1.00) X 10*3/uL Eosinophils # 0 L (0.04-0.35) X 10*3/uL D-Dimer (<0.60) mg/L FEU BUN/Creatinine Ratio 27.00 H (12.00-20.00) Ratio Glucose 163 H (70-110) mg/dL POC Glucose (mg/dL) 179 H (75-99) mg/dL Calcium 8.2 L (8.7-10.3) mg/dL Lactate Dehydrogenase 377 H (120-246) U/L C-Reactive Protein 10.7 H (0.0-0.8) mg/dL Procalcitonin (0.02-0.09) ng/mL 11/10/20 11/10/20 11/10/20 Range/Units 04:58 07:45 12:15 RBC (4.40-5.60) X 10*6/uL Hgb (13.0-17.0) g/dL Hct (39.6-50.0) % MCHC (32.0-37.0) g/dL Lymphocytes # (0.90-5.00) X 10*3/uL Monocytes # (0.20-1.00) X 10*3/uL Eosinophils # (0.04-0.35) X 10*3/uL D-Dimer 1.86 H (<0.60) mg/L FEU BUN/Creatinine Ratio (12.00-20.00) Ratio Glucose (70-110) mg/dL POC Glucose (mg/dL) 182 H 243 H (75-99) mg/dL Calcium (8.7-10.3) mg/dL Lactate Dehydrogenase (120-246) U/L C-Reactive Protein (0.0-0.8) mg/dL Procalcitonin (0.02-0.09) ng/mL Microbiology - Last 24 Hours (Table) 11/08/20 14:52 Blood Culture - Preliminary Blood No Growth after 24 hours 11/08/20 14:52 Blood Culture - Preliminary Blood No Growth after 24 hours Assessment and Plan Plan: Assessment: #1. Acute hypoxic respiratory failure related to acute COVID 19 related pneumonitis, onset of symptoms was 6 days prior to presentation, tested positive on 11/06/2020, patient was started on Remdesivir on 11/09/2020, dexamethasone, prophylactic Lovenox 40 mg daily. Patient has a known exposure to his and daughter with COVID 19 infection and patient's was hospitalized with COVID 19 pneumonia #2. Fever, chest congestion, body aches, loss of taste, cough, related to the above #3. Lymphopenia, elevated inflammatory markers related to acute COVID 19 infection #4. Diabetes mellitus type 2 #5. History of perforated diverticulitis status post bowel resection and colostomy Plan: Continue current medical treatment, today's chest x-ray has been noted, clinically patient feels like he is improving, he is on room air, no fever or chills, continue to follow. Obtain follow-up d-dimer and inflammatory markers in 48 hours I performed a history & physical examination of the patient and discussed their management with my nurse practitioner, Ailyn Yoon. I reviewed the nurse practitioner's note and agree with the documented findings and plan of care. Lung sounds are positive for dim breath sounds. The findings and the impression was discussed with the patient. I attest to the documentation by the nurse practitioner. Time with Patient: Less than 30
[2020-11-10 16:57] LABS: Glucose,Whole Blood 228 mg/dL (75-99)
[2020-11-10 22:04] LABS: Glucose,Whole Blood 131 mg/dL (75-99)
--- NOTE | 2020-11-10 23:14 | PN ---
PROGRESS NOTE DATE OF SERVICE: 11/10/2020 REASON FOR FOLLOWUP: COVID-19 infection. INTERVAL HISTORY: Patient is currently afebrile. The patient is breathing slightly comfortably and denies having any chest pain. Occasional cough. No nausea, no vomiting. No abdominal pain. No diarrhea. PHYSICAL EXAMINATION: Blood pressure 117/66, pulse 108, temperature 98.5. He is 92% on room air. General description: The patient is a middle-aged male lying in bed in no distress. Respiratory system: Unlabored breathing, decreased intensity of the breath sounds. No wheeze. HEART: S1, S2. Regular rate and rhythm. ABDOMEN: Soft, no tenderness. LABORATORY DATA: Hemoglobin 12, white count 6.2, BUN of 27, creatinine 1.0. Blood culture has been negative. DIAGNOSTIC IMPRESSION AND PLAN: Patient with acute COVID-19 infection in this patient currently being treated with Remdesivir, Lovenox, dexamethasone, zinc and ascorbic acid to continue along with respiratory support and monitor clinical course closely. MMODL / IJN: [id number] /
[2020-11-11] MEDS: lisinopriL 10 MG TAB PO SCH (07:41)
[2020-11-11] MEDS: ASCORBIC ACID 500 MG TAB PO SCH (07:41)
[2020-11-11] MEDS: CHOLECALCIFEROL 25 MCG (1000 IU) TABLET PO SCH (07:41)
[2020-11-11] MEDS: CYANOCOBALAMIN 500 MCG TAB PO SCH (07:41)
[2020-11-11] MEDS: ENOXAPARIN 40 MG/0.4 ML SYRINGE SQ SCH (07:41)
[2020-11-11] MEDS: ACETAMINOPHEN TAB 325 MG TAB PO PRN (07:41)
[2020-11-11] MEDS: DEXAMETHASONE SOD PHOSPHATE 10 MG/ML 1 ML VIAL IV SCH (07:42)
[2020-11-11] MEDS: ZINC SULFATE 220 MG CAP PO SCH (07:42)
[2020-11-11] MEDS: INSULIN ASPART (NovoLOG) 100 UNIT/ML VIAL SQ SCH ×7 (07:43→21:32)
[2020-11-11] MEDS: COLCHICINE 0.6 MG EACH PO SCH ×2 (07:46→21:33)
[2020-11-11 07:50] LABS: Glucose,Whole Blood 132 mg/dL (75-99)
[2020-11-11] MEDS ORDERED: ACETAMINOPHEN TAB 325 MG TAB PO STA (08:21)
--- NOTE | 2020-11-11 08:49 | XR ---
EXAMINATION TYPE: XR chest 1V portable DATE OF EXAM: 11/11/2020 Comparison: 11/10/2020 Clinical History: 50 year-old male shortness of breath Findings: Heart borderline enlarged. Multifocal patchy and fluffy air space opacities greatest in the mid and l ower lungs. This may be slightly worsened on the left now. No pleural effusion. Impression: Bilateral patchy and confluent infiltrates persist and may be slightly worsened on the left now.
[2020-11-11 11:11] LABS: African American GFR (CKD) 99.8 (60.0-200.0); Anion Gap 11.1 mmol/L (4.00-12.00); Calcium 8.1 mg/dL (8.7-10.3); Carbon Dioxide 22.9 mmol/L (21.6-31.8); Non-African American GFR(CKD) 86.2 (60.0-200.0); Potassium 4.9 mmol/L (3.5-5.5)
[2020-11-11 11:24] LABS: Basophils # (A) 0.01 X 10*3/uL (0.00-0.10); Basophils % (A) 0.1 %; Eosinophils # (A) 0 X 10*3/uL (0.04-0.35); Eosinophils % (A) 0 %; HCT 40.7 % (39.6-50.0); HGB 12.9 g/dL (13.0-17.0); Lymphocytes # (A) 0.65 X 10*3/uL (0.90-5.00); Lymphocytes % (A) 8.9 %; MCH 29.7 pg (27.0-32.0); MCHC 31.7 g/dL (32.0-37.0); MCV 93.6 fL (80.0-97.0); Mean Platelet Volume 10.2 fL (9.5-12.2); Monocytes # (A) 0.22 X 10*3/uL (0.20-1.00); Neutrophils # (A) 6.42 X 10*3/uL (1.80-7.70); Neutrophils % (A) 87.6 %; Platelet Count 257 X 10*3/uL (140-440); RBC 4.35 X 10*6/uL (4.40-5.60); RDW 12.4 % (11.5-14.5); WBC 7.33 X 10*3/uL (4.50-10.00)
[2020-11-11 11:52] LABS: Glucose,Whole Blood 138 mg/dL (75-99)
[2020-11-11] MEDS: SODIUM CHLORIDE 0.9% 1,000 ML IV SCH (12:24)
[2020-11-11] MEDS: REMDESIVIR 100 MG in SODIUM CHLORIDE 0.9% 250 ML IVPB SCH (12:31)
--- NOTE | 2020-11-11 16:10 | P.PN ---
Subjective Progress Note Date: 11/11/20 Principal diagnosis: Shortness of breath, COVID 19 pneumonitis 50-year-old white male patient of Dr. James Varela was and daughter were recently positive for COVID 19 pneumonia, and his was hospitalized for the same, presented to the hospital on 11/08/2020 complaining of a fever and cough. Patient started having symptoms since last Monday 6 days ago initially started with nasal congestion, which progressed to body aches, fever, loss of taste, cough. She denied any difficulty breathing, no chest pain or discomfort. No headache, no nausea vomiting, she did admit to having diarrhea. Complains of fatigue, and chills. His COVID 19 PCR was positive on 11/06/2020. Chest x-ray showed patchy density in the mid lung, perihilar region, possibly lower lobes. Lab work revealed lymphopenia with lymphocyte count of 0.6, white blood cell count was 4.94, hemoglobin was 13, electrolytes and renal profile were unremarkable, d-dimer was 0.65, lactic acid was 1.5, ferritin was 578, LDH was 646, CRP was 71.9, LFTs were within normal limits, urinalysis showed 3+ protein, trace ketones but negative for any sign of infection. Patient has been afebrile since admission, he was 10 3F on presentation, over the last 24 hours his febrile. Has somewhat improved, and his T-max in the last 24 hours is 102.7F for which patient is getting antipyretics. ID service has been consulted, he was started on Remdesivir, he is currently requiring 2 L of oxygen his pulse ox is 94%. Is on IV dexamethasone 6 mg daily, prophylactic Lovenox, and vitamins C, D, and zinc, he is on gentle IV hydration with 0.9 normal saline at a rate of 75 ML per hour, his past medical history significant for diverticulitis with history of colectomy with colostomy On 11/10/2020 patient seen in follow-up on medical surgical floor. He is resting comfortably in bed, he states she is feeling a little better, however his chest x-ray shows some worsening in the appearance of airspace disease in the right lung, compared to yesterday. There is also multifocal left lung opacities as well. Today is day 2 of Remdesivir treatment, patient continues on Decadron, prophylactic anticoagulation and multivitamins. Room air pulse ox 94%, patient is afebrile, breathing is nonlabored, no complaint of chest discomfort no nausea or vomiting. On 11/11/2020 patient seen in follow-up on medical surgical floor, this morning his oxygenation has significantly worsened, and patient was significantly more short of breath, he was satting 5% on 5 L, his FiO2 requirements continue to rise, and eventually he was placed on high flow oxygen per Airvo at 40 L and FiO2 of 70%, and he is satting 94%, in addition patient was febrile with a temp of 10 3F, tachycardic, his fever was treated with antipyretics, he remains on Remdesivir treatments, he continues on Decadron, prophylactic anticoagulation and multivitamins, today's labs have been reviewed. Follow-up chest x-ray and has been obtained showing bilateral patchy and confluent infiltrates worse on the left side today. In view of patient's increasing oxygen demand, close monitoring he was transferred to the [facility] care today. At the time of our evaluation patient is on high flow oxygen, he states is feeling much better, he is breathing comfortably, no complaints of chest discomfort, his pulse ox 94% on FiO2 of 70%. Afebrile. Objective - Vital Signs Vital signs: Vital Signs Temp 98.3 F 11/11/20 15:46 Pulse 78 11/11/20 15:46 Resp 18 11/11/20 15:46 BP 115/78 11/11/20 15:46 Pulse Ox 97 11/11/20 15:46 Intake & Output 11/10/20 11/11/20 11/11/20 18:59 06:59 18:59 Intake Total 1320 Output Total 500 Balance 1320 -500 Intake: Intake, IV Titration 900 Amount Sodium Chloride 0.9% 1, 900 000 ml @ 75 mls/hr IV . [id number] STEVO Rx#:[id number] Oral 420 Output: Stool 500 Other: # Voids 3 - Exam GENERAL EXAM: Alert, very pleasant, 50-year-old white male, high flow oxygen per Airvo at 40 L and FiO2 of 60% with a pulse ox of 97 comfortable in no apparent distress. HEAD: Normocephalic/atraumatic. EYES: Normal reaction of pupils, equal size. Conjunctiva pink, sclera white. NOSE: Clear with pink turbinates. THROAT: No erythema or exudates. NECK: No masses, no JVD, no thyroid enlargement, no adenopathy. CHEST: No chest wall deformity. Symmetrical expansion. LUNGS: Equal air entry with no crackles, wheeze, rhonchi or dullness. CVS: Regular rate and rhythm, normal S1 and S2, no gallops, no murmurs, no rubs ABDOMEN: Soft, nontender. No hepatosplenomegaly, normal bowel sounds, no guarding or rigidity. EXTREMITIES: No clubbing, no edema, no cyanosis, 2+ pulses and upper and lower extremities. MUSCULOSKELETAL: Muscle strength and tone normal. SPINE: No scoliosis or deformity SKIN: No rashes CENTRAL NERVOUS SYSTEM: Alert and oriented -3. No focal deficits, tone is normal in all 4 extremities. PSYCHIATRIC: Alert and oriented -3. Appropriate affect. Intact judgment and insight. - Labs CBC & Chem 7: 11/11/20 05:55 11/11/20 05:55 Labs: Abnormal Lab Results - Last 24 Hours (Table) 11/10/20 11/10/20 11/11/20 Range/Units 16:56 22:03 05:55 RBC 4.35 L (4.40-5.60) X 10*6/uL Hgb 12.9 L (13.0-17.0) g/dL MCHC 31.7 L (32.0-37.0) g/dL Lymphocytes # 0.65 L (0.90-5.00) X 10*3/uL Eosinophils # 0 L (0.04-0.35) X 10*3/uL BUN (9.0-27.0) mg/dL BUN/Creatinine Ratio (12.00-20.00) Ratio Glucose (70-110) mg/dL POC Glucose (mg/dL) 228 H 131 H (75-99) mg/dL Calcium (8.7-10.3) mg/dL 11/11/20 11/11/20 11/11/20 Range/Units 05:55 07:39 11:49 RBC (4.40-5.60) X 10*6/uL Hgb (13.0-17.0) g/dL MCHC (32.0-37.0) g/dL Lymphocytes # (0.90-5.00) X 10*3/uL Eosinophils # (0.04-0.35) X 10*3/uL BUN 28.0 H (9.0-27.0) mg/dL BUN/Creatinine Ratio 28.00 H (12.00-20.00) Ratio Glucose 152 H (70-110) mg/dL POC Glucose (mg/dL) 132 H 138 H (75-99) mg/dL Calcium 8.1 L (8.7-10.3) mg/dL Microbiology - Last 24 Hours (Table) 11/08/20 14:52 Blood Culture - Preliminary Blood No Growth after 48 hours 11/08/20 14:52 Blood Culture - Preliminary Blood No Growth after 48 hours Assessment and Plan Plan: Assessment: #1. Acute hypoxic respiratory failure related to acute COVID 19 related pneumonitis, onset of symptoms was 6 days prior to presentation, tested positive on 11/06/2020, patient was started on Remdesivir on 11/09/2020, dexamethasone, prophylactic Lovenox 40 mg daily. Patient has a known exposure to his and daughter with COVID 19 infection and patient's was hospitalized with COVID 19 pneumonia #2. Fever, chest congestion, body aches, loss of taste, cough, related to the above #3. Lymphopenia, elevated inflammatory markers related to acute COVID 19 infection #4. Diabetes mellitus type 2 #5. History of perforated diverticulitis status post bowel resection and colostomy Plan: Continue Remdesivir, titrate FiO2 to keep O2 sat at or above 90%, continue Decadron, continue multivitamins continue prophylactic anticoagulation, chest x- ray has been reviewed showing some continued worsening of bilateral airspace disease. Patient has been transferred to a monitored bed on selective care unit, we'll continue to follow I performed a history & physical examination of the patient and discussed their management with my nurse practitioner, Ailyn Yoon. I reviewed the nurse practitioner's note and agree with the documented findings and plan of care. Lung sounds are positive for dim breath sounds. The findings and the impression was discussed with the patient. I attest to the documentation by the nurse practitioner. Time with Patient: Less than 30
[2020-11-11 16:57] LABS: Glucose,Whole Blood 227 mg/dL (75-99)
[2020-11-11 20:17] LABS: Glucose,Whole Blood 230 mg/dL (75-99)
--- NOTE | 2020-11-11 21:02 | P.PN ---
Subjective Progress Note Date: 11/11/20 (0800) Principal diagnosis: Covid 19 infection Covid 19 bilateral pneumonia Acute hypoxic respiratory failure secondary to Covid 19 infection 50-year-old male was evaluate this a.m. Patient was admitted with Covid 19 infection with Covid 19 bilateral pneumonia. Upon a physical assessment of the patient this a.m., noted dyspnea at rest, increase respiratory effort, tachycardic, and febrile. Patient noted to have oxygen saturation's of 82% on 6 L nasal cannula. Patient placed on avro at 40 liters with 70% with significant improvement. After a 30 minute duration patient able to carry out full sentences with mild dyspnea. Due to the nature of current illness and comorbidities [facility] Objective - Vital Signs Vital signs: Vital Signs Temp 98.3 F 11/11/20 15:46 Pulse 78 11/11/20 15:46 Resp 18 11/11/20 15:46 BP 115/78 11/11/20 15:46 Pulse Ox 97 11/11/20 19:49 Intake & Output 11/11/20 11/11/20 11/12/20 06:59 18:59 06:59 Intake Total 1320 Output Total 500 Balance 1320 -500 Intake: Intake, IV Titration 900 Amount Sodium Chloride 0.9% 1, 900 000 ml @ 75 mls/hr IV . [id number] STEVO Rx#:[id number] Oral 420 Output: Stool 500 Other: # Voids 3 - Constitutional General appearance: Present: mild distress - EENT Eyes: Present: abnormal pupil, PERRLA ENT: Present: pharyngeal erythema Ears: bilateral: normal - Neck Neck: Present: normal ROM Carotids: bilateral: upstroke normal Thyroid: bilateral: normal size - Respiratory Details: Sinus tachycardia Respiratory: bilateral: diminished (Anterior and posterior lung escudero) - Cardiovascular Details: Sinus tachycardia Heart rate: 125 Rhythm: regular Heart sounds: normal: S1, S2 - Peripheral pulses radial pulse Peripheral Pulses: bilateral: Normal dorsalis pedis Peripheral Pulses: bilateral: Normal - Gastrointestinal General gastrointestinal: Present: normal bowel sounds - Integumentary Integumentary Comment(s): Diaphoretic - Neurologic Neurologic: Present: CNII-XII intact - Musculoskeletal Musculoskeletal: Present: generalized weakness - Psychiatric Psychiatric: Present: A&O x's 3, appropriate affect, intact judgment & insight - Allied health notes Allied health notes reviewed: nursing - Labs CBC & Chem 7: 11/11/20 05:55 11/11/20 05:55 Labs: Abnormal Lab Results - Last 24 Hours (Table) 11/10/20 11/11/20 11/11/20 Range/Units 22:03 05:55 05:55 RBC 4.35 L (4.40-5.60) X 10*6/uL Hgb 12.9 L (13.0-17.0) g/dL MCHC 31.7 L (32.0-37.0) g/dL Lymphocytes # 0.65 L (0.90-5.00) X 10*3/uL Eosinophils # 0 L (0.04-0.35) X 10*3/uL BUN 28.0 H (9.0-27.0) mg/dL BUN/Creatinine Ratio 28.00 H (12.00-20.00) Ratio Glucose 152 H (70-110) mg/dL POC Glucose (mg/dL) 131 H (75-99) mg/dL Calcium 8.1 L (8.7-10.3) mg/dL 11/11/20 11/11/20 11/11/20 Range/Units 07:39 11:49 16:55 RBC (4.40-5.60) X 10*6/uL Hgb (13.0-17.0) g/dL MCHC (32.0-37.0) g/dL Lymphocytes # (0.90-5.00) X 10*3/uL Eosinophils # (0.04-0.35) X 10*3/uL BUN (9.0-27.0) mg/dL BUN/Creatinine Ratio (12.00-20.00) Ratio Glucose (70-110) mg/dL POC Glucose (mg/dL) 132 H 138 H 227 H (75-99) mg/dL Calcium (8.7-10.3) mg/dL 11/11/20 Range/Units 20:16 RBC (4.40-5.60) X 10*6/uL Hgb (13.0-17.0) g/dL MCHC (32.0-37.0) g/dL Lymphocytes # (0.90-5.00) X 10*3/uL Eosinophils # (0.04-0.35) X 10*3/uL BUN (9.0-27.0) mg/dL BUN/Creatinine Ratio (12.00-20.00) Ratio Glucose (70-110) mg/dL POC Glucose (mg/dL) 230 H (75-99) mg/dL Calcium (8.7-10.3) mg/dL Microbiology - Last 24 Hours (Table) 11/08/20 14:52 Blood Culture - Preliminary Blood No Growth after 72 hours 11/08/20 14:52 Blood Culture - Preliminary Blood No Growth after 72 hours - Imaging and Cardiology Chest x-ray: image reviewed Assessment and Plan Assessment: Acute Covid 19 infection with acute Covid 19 bilateral interstitial pneumonia hyponatremia diabetes mellitus type II hypertension hyperlipidemia elevated inflammatory markers of Covid 19 full code Plan: Acute Covid 19 infection bilateral interstitial pneumonia continue consultation and recommendations from pulmonary critical care infectious disease hyponatremia continue to monitor diagnostic labs diabetes mellitus type II continue sliding scale continue to monitor diagnostic labs and imaging studies continue medical management Time with Patient: Greater than 30
--- NOTE | 2020-11-11 23:38 | PN ---
PROGRESS NOTE DATE OF SERVICE: 11/11/2020 REASON FOR FOLLOWUP: COVID-19 pneumonia. INTERVAL HISTORY: The patient is currently afebrile. The patient is breathing slightly comfortably. Denies having any chest pain, shortness of breath. He did have a cough, bringing up some sputum. No nausea, no vomiting, no abdominal pain or diarrhea. PHYSICAL EXAMINATION: Blood pressure 115/78 with a pulse of 70, temperature 98.3. He is 97% on 40% FiO2. General description is a middle-aged male up in the bed in no distress. RESPIRATORY SYSTEM: Unlabored breathing with decreased intensity of breath sounds. No wheeze. HEART: S1, S2. Regular rate and rhythm. ABDOMEN: Soft. No tenderness. LABS: Hemoglobin is 12.9, white count 7.33. BUN of 28, creatinine 1.0. Blood culture negative. DIAGNOSTIC IMPRESSION AND PLAN: Patient with acute COVID-19 pneumonia in this patient with slight worsening on the chest x-ray and requiring high-flow oxygen. The patient is covered with remdesivir, dexamethasone, Lovenox. May benefit from a dose of Lasix. Continue with supportive care. MMODL / IJN: [id number] /
[2020-11-12 05:59] LABS: Glucose,Whole Blood 195 mg/dL (75-99)
[2020-11-12] MEDS: INSULIN ASPART (NovoLOG) 100 UNIT/ML VIAL SQ SCH ×7 (06:20→20:34)
[2020-11-12 09:13] LABS: Basophils % (A) 0 %; Eosinophils % (A) 0 %; HCT 39.2 % (39.0-53.0); HGB 13.1 gm/dL (13.0-17.5); Lymphocytes # (A) 0.7 k/uL (1.0-4.8); Lymphocytes % (A) 11 %; MCH 29.9 pg (25.0-35.0); MCHC 33.4 g/dL (31.0-37.0); MCV 89.5 fL (80.0-100.0); Mean Platelet Volume 7.7; Monocytes # (A) 0.2 k/uL (0-1.0); Monocytes % (A) 4 %; Neutrophils # (A) 5.8 k/uL (1.3-7.7); Neutrophils % (A) 85 %; Platelet Count 304 k/uL (150-450); RBC 4.39 m/uL (4.30-5.90); RDW 12.2 % (11.5-15.5); WBC 6.8 k/uL (3.8-10.6)
[2020-11-12] MEDS: lisinopriL 10 MG TAB PO SCH (09:16)
[2020-11-12] MEDS: DEXAMETHASONE SOD PHOSPHATE 10 MG/ML 1 ML VIAL IV SCH (09:16)
[2020-11-12] MEDS: CHOLECALCIFEROL 25 MCG (1000 IU) TABLET PO SCH (09:17)
[2020-11-12] MEDS: CYANOCOBALAMIN 500 MCG TAB PO SCH (09:17)
[2020-11-12] MEDS: ZINC SULFATE 220 MG CAP PO SCH (09:17)
[2020-11-12] MEDS: ASCORBIC ACID 500 MG TAB PO SCH (09:17)
[2020-11-12] MEDS: COLCHICINE 0.6 MG EACH PO SCH ×2 (09:18→20:31)
[2020-11-12] MEDS: ENOXAPARIN 40 MG/0.4 ML SYRINGE SQ SCH (09:18)
[2020-11-12 10:00] LABS: ALT 25 U/L (4-49); AST 54 U/L (17-59); African American GFR (CKD) >90 (>60 ml/min/1.73 sqM); Albumin 3.1 g/dL (3.5-5.0); Alkaline Phosphatase 46 U/L (38-126); Anion Gap 8 mmol/L; Blood Urea Nitrogen 25 mg/dL (9-20); C Reactive Protein 82.3 mg/L (<10.0); Carbon Dioxide 26 mmol/L (22-30); Chloride 104 mmol/L (98-107); Glucose 202 mg/dL (74-99); LDH 1626 U/L (313-618); Non-African American GFR(CKD) >90 (>60 ml/min/1.73 sqM); Sodium 138 mmol/L (137-145); Total Bilirubin 0.6 mg/dL (0.2-1.3); Total Protein 5.8 g/dL (6.3-8.2)
[2020-11-12 10:45] LABS: Potassium 4.8 mmol/L (3.5-5.1)
[2020-11-12] MEDS: REMDESIVIR 100 MG in SODIUM CHLORIDE 0.9% 250 ML IVPB SCH (12:13)
[2020-11-12 12:29] LABS: Glucose,Whole Blood 180 mg/dL (75-99)
--- NOTE | 2020-11-12 13:37 | P.PN ---
Subjective Progress Note Date: 11/12/20 Principal diagnosis: Shortness of breath, COVID 19 pneumonitis 50-year-old white male patient of Dr. James Varela was and daughter were recently positive for COVID 19 pneumonia, and his was hospitalized for the same, presented to the hospital on 11/08/2020 complaining of a fever and cough. Patient started having symptoms since last Monday 6 days ago initially started with nasal congestion, which progressed to body aches, fever, loss of taste, cough. She denied any difficulty breathing, no chest pain or discomfort. No headache, no nausea vomiting, she did admit to having diarrhea. Complains of fatigue, and chills. His COVID 19 PCR was positive on 11/06/2020. Chest x-ray showed patchy density in the mid lung, perihilar region, possibly lower lobes. Lab work revealed lymphopenia with lymphocyte count of 0.6, white blood cell count was 4.94, hemoglobin was 13, electrolytes and renal profile were unremarkable, d-dimer was 0.65, lactic acid was 1.5, ferritin was 578, LDH was 646, CRP was 71.9, LFTs were within normal limits, urinalysis showed 3+ protein, trace ketones but negative for any sign of infection. Patient has been afebrile since admission, he was 10 3F on presentation, over the last 24 hours his febrile. Has somewhat improved, and his T-max in the last 24 hours is 102.7F for which patient is getting antipyretics. ID service has been consulted, he was started on Remdesivir, he is currently requiring 2 L of oxygen his pulse ox is 94%. Is on IV dexamethasone 6 mg daily, prophylactic Lovenox, and vitamins C, D, and zinc, he is on gentle IV hydration with 0.9 normal saline at a rate of 75 ML per hour, his past medical history significant for diverticulitis with history of colectomy with colostomy On 11/10/2020 patient seen in follow-up on medical surgical floor. He is resting comfortably in bed, he states she is feeling a little better, however his chest x-ray shows some worsening in the appearance of airspace disease in the right lung, compared to yesterday. There is also multifocal left lung opacities as well. Today is day 2 of Remdesivir treatment, patient continues on Decadron, prophylactic anticoagulation and multivitamins. Room air pulse ox 94%, patient is afebrile, breathing is nonlabored, no complaint of chest discomfort no nausea or vomiting. On 11/11/2020 patient seen in follow-up on medical surgical floor, this morning his oxygenation has significantly worsened, and patient was significantly more short of breath, he was satting 5% on 5 L, his FiO2 requirements continue to rise, and eventually he was placed on high flow oxygen per Airvo at 40 L and FiO2 of 70%, and he is satting 94%, in addition patient was febrile with a temp of 10 3F, tachycardic, his fever was treated with antipyretics, he remains on Remdesivir treatments, he continues on Decadron, prophylactic anticoagulation and multivitamins, today's labs have been reviewed. Follow-up chest x-ray and has been obtained showing bilateral patchy and confluent infiltrates worse on the left side today. In view of patient's increasing oxygen demand, close monitoring he was transferred to the selective care today. At the time of our evaluation patient is on high flow oxygen, he states is feeling much lymphocyte count of 0.7, he is breathing comfortably, no complaints of chest discomfort, his pulse ox 94% on FiO2 of 70%. Afebrile. On 11/12/2020 patient seen in follow-up on selective care unit, is currently breathing comfortably, is on Airvo and 30 L and FiO2 of 40%, she was subsequently switched to regular high flow nasal cannula at 10 L and he is maintaining O2 saturations at around 96-97%, he is breathing comfortably, no couplets or chest discomfort, he is afebrile today, blood pressure is stable. He is on day 4 of Remdesivir, he continues on Decadron 6 mg, colchicine, prophylactic Lovenox. Today's labs have been reviewed, lymphopenia very slightly better, at 0.7, d-dimer is improving, down to 0.3, electrolytes within normal limits, BUN is 25 creatinine 0.63. LDH is 1626, CRP is 82.3. Objective - Vital Signs Vital signs: Vital Signs Temp 98.4 F 11/12/20 12:00 Pulse 76 11/12/20 12:00 Resp 22 11/12/20 12:00 BP 125/62 11/12/20 12:00 Pulse Ox 96 03/11/21 12:00 Intake & Output 11/11/20 11/12/20 11/12/20 18:59 06:59 18:59 Intake Total 240 Output Total 500 200 Balance -500 -200 240 Weight 110 kg Intake: Oral 240 Output: Urine 200 Stool 500 Other: # Bowel Movements 1 - Exam GENERAL EXAM: Alert, very pleasant, 50-year-old white male, high flow oxygen per Airvo at 30 L and FiO2 of 40% with a pulse ox of 97 comfortable in no apparent distress. HEAD: Normocephalic/atraumatic. EYES: Normal reaction of pupils, equal size. Conjunctiva pink, sclera white. NOSE: Clear with pink turbinates. THROAT: No erythema or exudates. NECK: No masses, no JVD, no thyroid enlargement, no adenopathy. CHEST: No chest wall deformity. Symmetrical expansion. LUNGS: Equal air entry with no crackles, wheeze, rhonchi or dullness. CVS: Regular rate and rhythm, normal S1 and S2, no gallops, no murmurs, no rubs ABDOMEN: Soft, nontender. No hepatosplenomegaly, normal bowel sounds, no guarding or rigidity. EXTREMITIES: No clubbing, no edema, no cyanosis, 2+ pulses and upper and lower extremities. MUSCULOSKELETAL: Muscle strength and tone normal. SPINE: No scoliosis or deformity SKIN: No rashes CENTRAL NERVOUS SYSTEM: Alert and oriented -3. No focal deficits, tone is normal in all 4 extremities. PSYCHIATRIC: Alert and oriented -3. Appropriate affect. Intact judgment and insight. - Labs CBC & Chem 7: 11/12/20 08:07 11/12/20 08:07 Labs: Abnormal Lab Results - Last 24 Hours (Table) 11/11/20 11/11/20 11/12/20 Range/Units 16:55 20:16 05:58 Lymphocytes # (1.0-4.8) k/uL D-Dimer (<0.60) mg/L FEU BUN (9-20) mg/dL Creatinine (0.66-1.25) mg/dL Glucose (74-99) mg/dL POC Glucose (mg/dL) 227 H 230 H 195 H (75-99) mg/dL Calcium (8.4-10.2) mg/dL Lactate Dehydrogenase (313-618) U/L C-Reactive Protein (<10.0) mg/L Total Protein (6.3-8.2) g/dL Albumin (3.5-5.0) g/dL 11/12/20 11/12/20 11/12/20 Range/Units 08:07 08:07 08:07 Lymphocytes # 0.7 L (1.0-4.8) k/uL D-Dimer 0.99 H (<0.60) mg/L FEU BUN 25 H (9-20) mg/dL Creatinine 0.63 L (0.66-1.25) mg/dL Glucose 202 H (74-99) mg/dL POC Glucose (mg/dL) (75-99) mg/dL Calcium 8.0 L (8.4-10.2) mg/dL Lactate Dehydrogenase 1626 H (313-618) U/L C-Reactive Protein 82.3 H (<10.0) mg/L Total Protein 5.8 L (6.3-8.2) g/dL Albumin 3.1 L (3.5-5.0) g/dL 11/12/20 Range/Units 12:28 Lymphocytes # (1.0-4.8) k/uL D-Dimer (<0.60) mg/L FEU BUN (9-20) mg/dL Creatinine (0.66-1.25) mg/dL Glucose (74-99) mg/dL POC Glucose (mg/dL) 180 H (75-99) mg/dL Calcium (8.4-10.2) mg/dL Lactate Dehydrogenase (313-618) U/L C-Reactive Protein (<10.0) mg/L Total Protein (6.3-8.2) g/dL Albumin (3.5-5.0) g/dL Microbiology - Last 24 Hours (Table) 11/08/20 14:52 Blood Culture - Preliminary Blood No Growth after 72 hours 11/08/20 14:52 Blood Culture - Preliminary Blood No Growth after 72 hours Assessment and Plan Plan: Assessment: #1. Acute hypoxic respiratory failure related to acute COVID 19 related pneumonitis, onset of symptoms was 6 days prior to presentation, tested positive on 11/06/2020, patient was started on Remdesivir on 11/09/2020, dexamethasone, prophylactic Lovenox 40 mg daily. Patient has a known exposure to his and daughter with COVID 19 infection and patient's was hospitalized with COVID 19 pneumonia #2. Fever, chest congestion, body aches, loss of taste, cough, related to the above #3. Lymphopenia, elevated inflammatory markers related to acute COVID 19 infection #4. Diabetes mellitus type 2 #5. History of perforated diverticulitis status post bowel resection and colostomy Plan: Continue current medical treatment, patient is on day 4 of Remdesivir, he is currently off Airvo and down to 10 l/min per high flow nasal cannula. Breathing much easier, feeling better, today's labs have been noted, we will obtain up follow-up chest x-ray tomorrow and follow-up inflammatory markers and d-dimer. I performed a history & physical examination of the patient and discussed their management with my nurse practitioner, Ailyn Yoon. I reviewed the nurse practitioner's note and agree with the documented findings and plan of care. Lung sounds are positive for dim breath sounds. The findings and the impression was discussed with the patient. I attest to the documentation by the nurse practitioner. Time with Patient: Less than 30
[2020-11-12 17:32] LABS: Glucose,Whole Blood 287 mg/dL (75-99)
--- NOTE | 2020-11-12 19:00 | PN ---
PROGRESS NOTE DATE OF SERVICE: 11/12/2020 REASON FOR FOLLOWUP: COVID-19 infection. INTERVAL HISTORY: The patient is currently afebrile. The patient is breathing more comfortably compared to yesterday. The patient denies having any chest pain. Occasional cough, not bringing up any sputum. No abdominal pain and no diarrhea. PHYSICAL EXAMINATION: Blood pressure 125/62 with a pulse of 93, temperature 98.4. He is 96% on 5 L high-flow oxygen. General description is a middle-aged male up in the chair in no distress. RESPIRATORY SYSTEM: Unlabored breathing with decreased intensity of breath sounds. No wheeze. HEART: S1, S2. Regular rate and rhythm. ABDOMEN: Soft. No tenderness. LABS: Hemoglobin is 13.1, white count 6.8, BUN of 25, creatinine 0.63. DIAGNOSTIC IMPRESSION AND PLAN: Patient with acute COVID-19 infection in this patient currently covered and responding to the remdesivir, zinc, Lovenox, dexamethasone. To continue while monitoring his clinical course closely. Continue with supportive care. MMODL / IJN: [id number] /
--- NOTE | 2020-11-12 19:22 | P.PN ---
Subjective Progress Note Date: 11/12/20 Principal diagnosis: Covid 19 infection Covid 19 bilateral pneumonia Acute hypoxic respiratory failure secondary to Covid 19 infection 50-year-old male was evaluate this a.m. Patient was admitted with Covid 19 infection with Covid 19 bilateral pneumonia. Upon a physical assessment of the patient this a.m.Patient continues to be ON AVRO with decrease in FI02 to and liters of oxygen, patient may be able to tolerate high flow nasal cannula to keep oxygen saturation's greater than 94%. Patient speaking full sentences without shortness of breath noted occasional dry cough. Patient denies fever, chills, shortness of breath at rest chest pain, palpitation, abdominal pain nausea or vomiting. Patient continues to endorse exertional dyspnea and generalized fatigue. Continue to follow treatment plan and recommendations for pulmonary critical care and infectious disease. Patient tolerating treatment plan well with supportive care. Patient guarded prognosis at this time Objective - Vital Signs Vital signs: Vital Signs Temp 98.3 F 11/12/20 16:00 Pulse 73 11/12/20 16:00 Resp 20 11/12/20 16:00 BP 130/63 11/12/20 16:00 Pulse Ox 96 11/12/20 16:00 Intake & Output 11/12/20 11/12/20 11/13/20 06:59 18:59 06:59 Intake Total 1080 240 Output Total 200 1350 Balance -200 -270 240 Weight 110 kg Intake: Oral 1080 240 Output: Urine 200 1050 Stool 300 Other: # Bowel Movements 1 - Constitutional General appearance: Present: mild distress - EENT Ears: bilateral: normal - Neck Neck: Present: normal ROM Carotids: bilateral: upstroke normal Thyroid: bilateral: normal size - Respiratory Respiratory: bilateral: diminished (Anterior and posterior lung escudero) - Cardiovascular Details: Normal sinus rhythm Heart rate: 68 Rhythm: regular Heart sounds: normal: S1, S2 - Peripheral pulses radial pulse Peripheral Pulses: bilateral: Normal dorsalis pedis Peripheral Pulses: bilateral: Normal - Gastrointestinal General gastrointestinal: Present: normal bowel sounds - Integumentary Integumentary: Present: decreased turgor - Neurologic Neurologic: Present: CNII-XII intact - Musculoskeletal Musculoskeletal: Present: generalized weakness - Psychiatric Psychiatric: Present: A&O x's 3, appropriate affect, intact judgment & insight - Allied health notes Allied health notes reviewed: nursing - Labs CBC & Chem 7: 11/12/20 08:07 11/12/20 08:07 Labs: Abnormal Lab Results - Last 24 Hours (Table) 11/11/20 11/12/20 11/12/20 Range/Units 20:16 05:58 08:07 Lymphocytes # (1.0-4.8) k/uL D-Dimer 0.99 H (<0.60) mg/L FEU BUN (9-20) mg/dL Creatinine (0.66-1.25) mg/dL Glucose (74-99) mg/dL POC Glucose (mg/dL) 230 H 195 H (75-99) mg/dL Calcium (8.4-10.2) mg/dL Lactate Dehydrogenase (313-618) U/L C-Reactive Protein (<10.0) mg/L Total Protein (6.3-8.2) g/dL Albumin (3.5-5.0) g/dL 11/12/20 11/12/20 11/12/20 Range/Units 08:07 08:07 12:28 Lymphocytes # 0.7 L (1.0-4.8) k/uL D-Dimer (<0.60) mg/L FEU BUN 25 H (9-20) mg/dL Creatinine 0.63 L (0.66-1.25) mg/dL Glucose 202 H (74-99) mg/dL POC Glucose (mg/dL) 180 H (75-99) mg/dL Calcium 8.0 L (8.4-10.2) mg/dL Lactate Dehydrogenase 1626 H (313-618) U/L C-Reactive Protein 82.3 H (<10.0) mg/L Total Protein 5.8 L (6.3-8.2) g/dL Albumin 3.1 L (3.5-5.0) g/dL 11/12/20 Range/Units 17:31 Lymphocytes # (1.0-4.8) k/uL D-Dimer (<0.60) mg/L FEU BUN (9-20) mg/dL Creatinine (0.66-1.25) mg/dL Glucose (74-99) mg/dL POC Glucose (mg/dL) 287 H (75-99) mg/dL Calcium (8.4-10.2) mg/dL Lactate Dehydrogenase (313-618) U/L C-Reactive Protein (<10.0) mg/L Total Protein (6.3-8.2) g/dL Albumin (3.5-5.0) g/dL Microbiology - Last 24 Hours (Table) 11/08/20 14:52 Blood Culture - Preliminary Blood No Growth after 96 hours 11/08/20 14:52 Blood Culture - Preliminary Blood No Growth after 96 hours Assessment and Plan Assessment: Acute Covid 19 infection with acute Covid 19 bilateral interstitial pneumonia hyponatremia diabetes mellitus type II hypertension hyperlipidemia elevated inflammatory markers of Covid 19 full code Plan: Acute Covid 19 infection bilateral interstitial pneumonia continue consultation and recommendations from pulmonary critical care infectious disease hyponatremia continue to monitor diagnostic labs diabetes mellitus type II continue sliding scale continue to monitor diagnostic labs and imaging studies continue medical management Further recommendations to come based on clinical course Time with Patient: Greater than 30
[2020-11-12 20:20] LABS: Glucose,Whole Blood 276 mg/dL (75-99)
[2020-11-13 06:44] LABS: Glucose,Whole Blood 188 mg/dL (75-99)
[2020-11-13] MEDS: INSULIN ASPART (NovoLOG) 100 UNIT/ML VIAL SQ SCH ×7 (06:46→21:26)
--- NOTE | 2020-11-13 08:11 | XR ---
EXAMINATION TYPE: XR chest 1V portable DATE OF EXAM: 11/13/2020 Comparison: 11/11/2020 Clinical History: 50 year-old male shortness of breath, COVID 19 Findings: Heart upper limits of normal in size. Patchy airspace opacities especially mid and lower lungs have b ecome slightly less confluent on prior. Impression: Patchy bilateral airspace disease appears slightly improved from prior.
[2020-11-13] MEDS: COLCHICINE 0.6 MG EACH PO SCH ×2 (08:42→21:25)
[2020-11-13] MEDS: DEXAMETHASONE SOD PHOSPHATE 10 MG/ML 1 ML VIAL IV SCH (08:42)
[2020-11-13] MEDS: ZINC SULFATE 220 MG CAP PO SCH (08:42)
[2020-11-13] MEDS: ASCORBIC ACID 500 MG TAB PO SCH (08:42)
[2020-11-13] MEDS: CYANOCOBALAMIN 500 MCG TAB PO SCH (08:42)
[2020-11-13] MEDS: CHOLECALCIFEROL 25 MCG (1000 IU) TABLET PO SCH (08:42)
[2020-11-13] MEDS: lisinopriL 10 MG TAB PO SCH (08:42)
[2020-11-13] MEDS: ENOXAPARIN 40 MG/0.4 ML SYRINGE SQ SCH (08:44)
--- NOTE | 2020-11-13 09:38 | P.PN ---
Subjective Progress Note Date: 11/13/20 Principal diagnosis: Covid 19 infection Covid 19 bilateral pneumonia Acute hypoxic respiratory failure secondary to Covid 19 infection 50-year-old male was evaluate this a.m. Patient was admitted with Covid 19 infection with Covid 19 bilateral pneumonia. Upon a physical assessment of the patient this a.m.on high flow nasal cannula @ 4l to keep oxygen saturation's greater than 94%. Patient speaking full sentences without shortness of breath noted occasional dry cough. Patient denies fever, chills, shortness of breath at rest chest pain, palpitation, abdominal pain nausea or vomiting. Patient continues to endorse exertional dyspnea and generalized fatigue. Cont inue to follow treatment plan and recommendations for pulmonary critical care and infectious disease. Patient tolerating treatment plan well with supportive care. Patient guarded prognosis at this time Objective - Vital Signs Vital signs: Vital Signs Temp 97.7 F 11/13/20 08:00 Pulse 67 11/13/20 08:00 Resp 20 11/13/20 08:00 BP 119/60 11/13/20 08:00 Pulse Ox 97 11/13/20 08:00 Intake & Output 11/12/20 11/13/20 11/13/20 18:59 06:59 18:59 Intake Total 1080 720 240 Output Total 1350 250 Balance -270 470 240 Weight 108 kg Intake: Oral 1080 720 240 Output: Urine 1050 250 Stool 300 Other: # Voids 1 - Constitutional General appearance: Present: mild distress - EENT Eyes: Present: EOMI, PERRLA Ears: left: normal - Neck Neck: Present: normal ROM Carotids: bilateral: upstroke normal Thyroid: bilateral: normal size - Respiratory Respiratory: bilateral: diminished (Anterior and posterior lung escudero) - Cardiovascular Details: Normal sinus rhythm Heart rate: 78 Rhythm: regular Heart sounds: normal: S1, S2 - Peripheral pulses radial pulse Peripheral Pulses: bilateral: Normal dorsalis pedis Peripheral Pulses: bilateral: Normal - Gastrointestinal General gastrointestinal: Present: normal bowel sounds - Integumentary Integumentary: Present: normal turgor - Neurologic Neurologic: Present: CNII-XII intact - Musculoskeletal Musculoskeletal: Present: generalized weakness - Psychiatric Psychiatric: Present: A&O x's 3, appropriate affect, intact judgment & insight - Allied health notes Allied health notes reviewed: nursing - Labs CBC & Chem 7: 11/12/20 08:07 11/12/20 08:07 Labs: Abnormal Lab Results - Last 24 Hours (Table) 11/12/20 11/12/20 11/12/20 Range/Units 08:07 12:28 17:31 D-Dimer (<0.60) mg/L FEU BUN 25 H (9-20) mg/dL Creatinine 0.63 L (0.66-1.25) mg/dL Glucose 202 H (74-99) mg/dL POC Glucose (mg/dL) 180 H 287 H (75-99) mg/dL Calcium 8.0 L (8.4-10.2) mg/dL Lactate Dehydrogenase 1626 H (313-618) U/L C-Reactive Protein 82.3 H (<10.0) mg/L Total Protein 5.8 L (6.3-8.2) g/dL Albumin 3.1 L (3.5-5.0) g/dL 11/12/20 11/13/20 11/13/20 Range/Units 20:11 06:41 06:55 D-Dimer 0.79 H (<0.60) mg/L FEU BUN (9-20) mg/dL Creatinine (0.66-1.25) mg/dL Glucose (74-99) mg/dL POC Glucose (mg/dL) 276 H 188 H (75-99) mg/dL Calcium (8.4-10.2) mg/dL Lactate Dehydrogenase (313-618) U/L C-Reactive Protein (<10.0) mg/L Total Protein (6.3-8.2) g/dL Albumin (3.5-5.0) g/dL 11/13/20 Range/Units 06:55 D-Dimer (<0.60) mg/L FEU BUN (9-20) mg/dL Creatinine (0.66-1.25) mg/dL Glucose (74-99) mg/dL POC Glucose (mg/dL) (75-99) mg/dL Calcium (8.4-10.2) mg/dL Lactate Dehydrogenase 1257 H (313-618) U/L C-Reactive Protein 57.0 H (<10.0) mg/L Total Protein (6.3-8.2) g/dL Albumin (3.5-5.0) g/dL Microbiology - Last 24 Hours (Table) 11/12/20 20:55 Gram Stain - Preliminary Sputum Sputum Culture - Preliminary 11/08/20 14:52 Blood Culture - Preliminary Blood No Growth after 96 hours 11/08/20 14:52 Blood Culture - Preliminary Blood No Growth after 96 hours - Imaging and Cardiology Chest x-ray: report reviewed Assessment and Plan Assessment: Acute Covid 19 infection with acute Covid 19 bilateral interstitial pneumonia hyponatremia diabetes mellitus type II hypertension hyperlipidemia elevated inflammatory markers of Covid 19 full code Plan: Acute Covid 19 infection bilateral interstitial pneumonia continue consultation and recommendations from pulmonary critical care infectious disease hyponatremia continue to monitor diagnostic labs diabetes mellitus type II continue sliding scale continue to monitor diagnostic labs and imaging studies continue medical management Further recommendations to come based on clinical course Time with Patient: Greater than 30
[2020-11-13 10:16] VITALS: BMI 34.1
[2020-11-13 11:53] LABS: Glucose,Whole Blood 220 mg/dL (75-99)
[2020-11-13] MEDS: REMDESIVIR 100 MG in SODIUM CHLORIDE 0.9% 250 ML IVPB SCH (14:29)
--- NOTE | 2020-11-13 14:32 | P.PN ---
Subjective Progress Note Date: 11/13/20 Principal diagnosis: Shortness of breath, COVID 19 pneumonitis 50-year-old white male patient of Dr. James Varela was and daughter were recently positive for COVID 19 pneumonia, and his was hospitalized for the same, presented to the hospital on 11/08/2020 complaining of a fever and cough. Patient started having symptoms since last Monday 6 days ago initially started with nasal congestion, which progressed to body aches, fever, loss of taste, cough. She denied any difficulty breathing, no chest pain or discomfort. No headache, no nausea vomiting, she did admit to having diarrhea. Complains of fatigue, and chills. His COVID 19 PCR was positive on 11/06/2020. Chest x-ray showed patchy density in the mid lung, perihilar region, possibly lower lobes. Lab work revealed lymphopenia with lymphocyte count of 0.6, white blood cell count was 4.94, hemoglobin was 13, electrolytes and renal profile were unremarkable, d-dimer was 0.65, lactic acid was 1.5, ferritin was 578, LDH was 646, CRP was 71.9, LFTs were within normal limits, urinalysis showed 3+ protein, trace ketones but negative for any sign of infection. Patient has been afebrile since admission, he was 10 3F on presentation, over the last 24 hours his febrile. Has somewhat improved, and his T-max in the last 24 hours is 102.7F for which patient is getting antipyretics. ID service has been consulted, he was started on Remdesivir, he is currently requiring 2 L of oxygen his pulse ox is 94%. Is on IV dexamethasone 6 mg daily, prophylactic Lovenox, and vitamins C, D, and zinc, he is on gentle IV hydration with 0.9 normal saline at a rate of 75 ML per hour, his past medical history significant for diverticulitis with history of colectomy with colostomy On 11/10/2020 patient seen in follow-up on medical surgical floor. He is resting comfortably in bed, he states she is feeling a little better, however his chest x-ray shows some worsening in the appearance of airspace disease in the right lung, compared to yesterday. There is also multifocal left lung opacities as well. Today is day 2 of Remdesivir treatment, patient continues on Decadron, prophylactic anticoagulation and multivitamins. Room air pulse ox 94%, patient is afebrile, breathing is nonlabored, no complaint of chest discomfort no nausea or vomiting. On 11/11/2020 patient seen in follow-up on medical surgical floor, this morning his oxygenation has significantly worsened, and patient was significantly more short of breath, he was satting 5% on 5 L, his FiO2 requirements continue to rise, and eventually he was placed on high flow oxygen per Airvo at 40 L and FiO2 of 70%, and he is satting 94%, in addition patient was febrile with a temp of 10 3F, tachycardic, his fever was treated with antipyretics, he remains on Remdesivir treatments, he continues on Decadron, prophylactic anticoagulation and multivitamins, today's labs have been reviewed. Follow-up chest x-ray and has been obtained showing bilateral patchy and confluent infiltrates worse on the left side today. In view of patient's increasing oxygen demand, close monitoring he was transferred to the selective care today. At the time of our evaluation patient is on high flow oxygen, he states is feeling much lymphocyte count of 0.7, he is breathing comfortably, no complaints of chest discomfort, his pulse ox 94% on FiO2 of 70%. Afebrile. On 11/12/2020 patient seen in follow-up on selective care unit, is currently breathing comfortably, is on Airvo and 30 L and FiO2 of 40%, she was subsequently switched to regular high flow nasal cannula at 10 L and he is maintaining O2 saturations at around 96-97%, he is breathing comfortably, no couplets or chest discomfort, he is afebrile today, blood pressure is stable. He is on day 4 of Remdesivir, he continues on Decadron 6 mg, colchicine, prophylactic Lovenox. Today's labs have been reviewed, lymphopenia very slightly better, at 0.7, d-dimer is improving, down to 0.3, electrolytes within normal limits, BUN is 25 creatinine 0.63. LDH is 1626, CRP is 82.3. On 11/13/2020 patient seen in follow-up on selective care unit, is currently down to 4 L of oxygen, his pulse ox of 97%, afebrile, hemodynamically stable, he is breathing comfortably, denies any cough, denies any chest discomfort, feeling a lot better today, today's chest x-ray reviewed showing patchy bilateral airspace disease with slight improvement compared to prior exam. States his last dose of Remdesivir, he remains on Decadron 6 mg daily, prophylactic Lovenox, vitamins. He is improving. His inflammatory markers are improving, d- dimer 0.79. LDH is 1257, down from 1626 on yesterday's labs, CRP is 57 down f rom 82.3 on yesterday's labs. Objective - Vital Signs Vital signs: Vital Signs Temp 98.1 F 11/13/20 11:43 Pulse 66 11/13/20 11:43 Resp 20 11/13/20 11:43 BP 122/68 11/13/20 11:43 Pulse Ox 97 11/13/20 11:43 Intake & Output 11/12/20 11/13/20 11/13/20 18:59 06:59 18:59 Intake Total 1080 720 240 Output Total 1350 250 Balance -270 470 240 Weight 108 kg 108 kg Intake: Oral 1080 720 240 Output: Urine 1050 250 Stool 300 Other: # Voids 1 - Exam GENERAL EXAM: Alert, very pleasant, 50-year-old white male, currently on 4 L of oxygen the pulse ox 97% comfortable in no apparent distress. HEAD: Normocephalic/atraumatic. EYES: Normal reaction of pupils, equal size. Conjunctiva pink, sclera white. NOSE: Clear with pink turbinates. THROAT: No erythema or exudates. NECK: No masses, no JVD, no thyroid enlargement, no adenopathy. CHEST: No chest wall deformity. Symmetrical expansion. LUNGS: Equal air entry with no crackles, wheeze, rhonchi or dullness. CVS: Regular rate and rhythm, normal S1 and S2, no gallops, no murmurs, no rubs ABDOMEN: Soft, nontender. No hepatosplenomegaly, normal bowel sounds, no guarding or rigidity. EXTREMITIES: No clubbing, no edema, no cyanosis, 2+ pulses and upper and lower extremities. MUSCULOSKELETAL: Muscle strength and tone normal. SPINE: No scoliosis or deformity SKIN: No rashes CENTRAL NERVOUS SYSTEM: Alert and oriented -3. No focal deficits, tone is normal in all 4 extremities. PSYCHIATRIC: Alert and oriented -3. Appropriate affect. Intact judgment and insight. - Labs CBC & Chem 7: 11/12/20 08:07 11/12/20 08:07 Labs: Abnormal Lab Results - Last 24 Hours (Table) 11/12/20 11/12/20 11/13/20 Range/Units 17:31 20:11 06:41 D-Dimer (<0.60) mg/L FEU POC Glucose (mg/dL) 287 H 276 H 188 H (75-99) mg/dL Lactate Dehydrogenase (313-618) U/L C-Reactive Protein (<10.0) mg/L 11/13/20 11/13/20 11/13/20 Range/Units 06:55 06:55 11:48 D-Dimer 0.79 H (<0.60) mg/L FEU POC Glucose (mg/dL) 220 H (75-99) mg/dL Lactate Dehydrogenase 1257 H (313-618) U/L C-Reactive Protein 57.0 H (<10.0) mg/L Microbiology - Last 24 Hours (Table) 11/12/20 20:55 Gram Stain - Preliminary Sputum Sputum Culture - Preliminary 11/08/20 14:52 Blood Culture - Preliminary Blood No Growth after 96 hours 11/08/20 14:52 Blood Culture - Preliminary Blood No Growth after 96 hours Assessment and Plan Plan: Assessment: #1. Acute hypoxic respiratory failure related to acute COVID 19 related pneumonitis, onset of symptoms was 6 days prior to presentation, tested positive on 11/06/2020, patient was started on Remdesivir on 11/09/2020, dexamethasone, prophylactic Lovenox 40 mg daily. Patient has a known exposure to his and daughter with COVID 19 infection and patient's was hospitalized with COVID 19 pneumonia #2. Fever, chest congestion, body aches, loss of taste, cough, related to the above #3. Lymphopenia, elevated inflammatory markers related to acute COVID 19 infection #4. Diabetes mellitus type 2 #5. History of perforated diverticulitis status post bowel resection and colostomy Plan: Patient is doing much better, inflammatory markers are improving, oxygen demand is down, worsening dyspnea, today's chest x-ray shows slight improvement in the appearance of bilateral airspace disease, no fever or chills, vital signs have been stable, after he received his last dose of Remdesivir today patient can be considered for discharge home today or possibly tomorrow. Follow up with Dr. Jolly in office in 2-3 weeks I performed a history & physical examination of the patient and discussed their management with my nurse practitioner, Ailyn Yoon. I reviewed the nurse practitioner's note and agree with the documented findings and plan of care. Lung sounds are positive for dim breath sounds. The findings and the impression was discussed with the patient. I attest to the documentation by the nurse practitioner. Time with Patient: Less than 30
--- NOTE | 2020-11-13 16:31 | PN ---
PROGRESS NOTE DATE OF SERVICE: 11/13/2020 REASON FOR FOLLOWUP: COVID-19 infection. INTERVAL HISTORY: The patient is currently afebrile. The patient is breathing more comfortably, currently on 4 L nasal cannula. The patient denies having any chest pain. Occasional cough. No nausea, no vomiting, no abdominal pain or diarrhea. PHYSICAL EXAMINATION: Blood pressure 122/68 with a pulse of 66, temperature 98.1. He is 97% on 4 L nasal cannula. General description is a middle-aged male up in the chair in no distress. RESPIRATORY SYSTEM: Unlabored breathing with decreased intensity of breath sounds. No wheeze. HEART: S1, S2. Regular rate and rhythm. ABDOMEN: Soft. No tenderness. LABS: LDH, CRP mildly elevated. Sputum so far pending. DIAGNOSTIC IMPRESSION AND PLAN: Patient with acute COVID-19 infection in this patient who completed his remdesivir therapy and has shown clinical as well as improvement. He will continue with the dexamethasone, colchicine, zinc along with respiratory support, and we will monitor his clinical course closely. MMODL / IJN: [id number] /
[2020-11-13 16:59] LABS: Glucose,Whole Blood 273 mg/dL (75-99)
[2020-11-13 19:58] LABS: Glucose,Whole Blood 308 mg/dL (75-99)
[2020-11-14 01:16] LABS: Glucose,Whole Blood 185 mg/dL (75-99)
[2020-11-14 05:16] VITALS: TEMP 97.7
[2020-11-14 06:30] LABS: Glucose,Whole Blood 167 mg/dL (75-99)
[2020-11-14] MEDS: INSULIN ASPART (NovoLOG) 100 UNIT/ML VIAL SQ SCH ×3 (06:51→12:38)
[2020-11-14 10:21] VITALS: RESP 16
[2020-11-14] MEDS: ASCORBIC ACID 500 MG TAB PO SCH (10:23)
[2020-11-14] MEDS: DEXAMETHASONE SOD PHOSPHATE 10 MG/ML 1 ML VIAL IV SCH (10:23)
[2020-11-14] MEDS: CYANOCOBALAMIN 500 MCG TAB PO SCH (10:23)
[2020-11-14] MEDS: ZINC SULFATE 220 MG CAP PO SCH (10:23)
[2020-11-14] MEDS: ENOXAPARIN 40 MG/0.4 ML SYRINGE SQ SCH (10:23)
[2020-11-14] MEDS: CHOLECALCIFEROL 25 MCG (1000 IU) TABLET PO SCH (10:23)
[2020-11-14] MEDS: COLCHICINE 0.6 MG EACH PO SCH (10:23)
[2020-11-14] MEDS: lisinopriL 10 MG TAB PO SCH (10:24)
[2020-11-14 11:59] LABS: Glucose,Whole Blood 279 mg/dL (75-99)
[2020-11-14 12:37] VITALS: BP 126/69; PULSE 62
--- NOTE | 2020-11-14 13:31 | P.PN ---
Subjective Progress Note Date: 11/14/20 Principal diagnosis: Acute CoVID 19 pneumonitis 50-year-old white male patient of Dr. James Varela was and daughter were recently positive for COVID 19 pneumonia, and his was hospitalized for the same, presented to the hospital on 11/08/2020 complaining of a fever and cough. Patient started having symptoms since last Monday 6 days ago initially started with nasal congestion, which progressed to body aches, fever, loss of taste, cough. She denied any difficulty breathing, no chest pain or discomfort. No headache, no nausea vomiting, she did admit to having diarrhea. Complains of fatigue, and chills. His COVID 19 PCR was positive on 11/06/2020. Chest x-ray showed patchy density in the mid lung, perihilar region, possibly lower lobes. Lab work revealed lymphopenia with lymphocyte count of 0.6, white blood cell count was 4.94, hemoglobin was 13, electrolytes and renal profile were unremarkable, d-dimer was 0.65, lactic acid was 1.5, ferritin was 578, LDH was 646, CRP was 71.9, LFTs were within normal limits, urinalysis showed 3+ protein, trace ketones but negative for any sign of infection. Patient has been afebrile since admission, he was 10 3F on presentation, over the last 24 hours his febrile. Has somewhat improved, and his T-max in the last 24 hours is 102.7F for which patient is getting antipyretics. ID service has been consulted, he was started on Remdesivir, he is currently requiring 2 L of oxygen his pulse ox is 94%. Is on IV dexamethasone 6 mg daily, prophylactic Lovenox, and vitamins C, D, and zinc, he is on gentle IV hydration with 0.9 normal saline at a rate of 75 ML per hour, his past medical history significant for diverticulitis with history of colectomy with colostomy On 11/10/2020 patient seen in follow-up on medical surgical floor. He is resting comfortably in bed, he states she is feeling a little better, however his chest x-ray shows some worsening in the appearance of airspace disease in the right lung, compared to yesterday. There is also multifocal left lung opacities as well. Today is day 2 of Remdesivir treatment, patient continues on Decadron, prophylactic anticoagulation and multivitamins. Room air pulse ox 94%, patient is afebrile, breathing is nonlabored, no complaint of chest discomfort no nausea or vomiting. On 11/11/2020 patient seen in follow-up on medical surgical floor, this morning his oxygenation has significantly worsened, and patient was significantly more short of breath, he was satting 5% on 5 L, his FiO2 requirements continue to rise, and eventually he was placed on high flow oxygen per Airvo at 40 L and FiO2 of 70%, and he is satting 94%, in addition patient was febrile with a temp of 10 3F, tachycardic, his fever was treated with antipyretics, he remains on Remdesivir treatments, he continues on Decadron, prophylactic anticoagulation and multivitamins, today's labs have been reviewed. Follow-up chest x-ray and has been obtained showing bilateral patchy and confluent infiltrates worse on the left side today. In view of patient's increasing oxygen demand, close monitoring he was transferred to the selective care today. At the time of our evaluation patient is on high flow oxygen, he states is feeling much lymphocyte count of 0.7, he is breathing comfortably, no complaints of chest discomfort, his pulse ox 94% on FiO2 of 70%. Afebrile. On 11/12/2020 patient seen in follow-up on selective care unit, is currently breathing comfortably, is on Airvo and 30 L and FiO2 of 40%, she was subsequently switched to regular high flow nasal cannula at 10 L and he is maintaining O2 saturations at around 96-97%, he is breathing comfortably, no couplets or chest discomfort, he is afebrile today, blood pressure is stable. He is on day 4 of Remdesivir, he continues on Decadron 6 mg, colchicine, prophylactic Lovenox. Today's labs have been reviewed, lymphopenia very slightly better, at 0.7, d-dimer is improving, down to 0.3, electrolytes within normal limits, BUN is 25 creatinine 0.63. LDH is 1626, CRP is 82.3. On 11/13/2020 patient seen in follow-up on selective care unit, is currently down to 4 L of oxygen, his pulse ox of 97%, afebrile, hemodynamically stable, he is breathing comfortably, denies any cough, denies any chest discomfort, feeling a lot better today, today's chest x-ray reviewed showing patchy bilateral airspace disease with slight improvement compared to prior exam. States his last dose of Remdesivir, he remains on Decadron 6 mg daily, prophylactic Lovenox, vitamins. He is improving. His inflammatory markers are improving, d- dimer 0.79. LDH is 1257, down from 1626 on yesterday's labs, CRP is 57 down from 82.3 on yesterday's labs. The patient is seen today 11/14/2020 and follow-up on the selective care unit. He is currently sitting up in a chair at the bedside. Awake and alert in no acute distress. He is maintaining O2 saturations in the 90s on room air. He has completed his course of Remdesivir. Remains on Lovenox, dexamethasone, vitamin supplements. Objective - Vital Signs Vital signs: Vital Signs Temp 97.7 F 11/14/20 10:20 Pulse 62 11/14/20 12:00 Resp 16 11/14/20 12:00 BP 126/69 11/14/20 12:00 Pulse Ox 95 11/14/20 12:00 Intake & Output 11/13/20 11/14/20 11/14/20 18:59 06:59 18:59 Intake Total 740 836 Balance 740 836 Weight 108 kg 107.5 kg Intake: Intake, IV Titration 250 Amount Remdesivir 100 mg In 250 Sodium Chloride 0.9% 250 ml @ 250 mls/hr IVPB DAILY@1300 [facility] Rx#: [id number] Oral 490 836 Other: Voiding Method Toilet Toilet # Voids 1 2 - Exam GENERAL EXAM: Alert, active, pleasant 50-year-old gentleman, on room air, comfortable in no apparent distress. HEAD: Normocephalic. EYES: Normal reaction of pupils, equal size. NOSE: Clear with pink turbinates. THROAT: No erythema or exudates. NECK: No masses, no JVD. CHEST: No chest wall deformity. LUNGS: Equal air entry with no crackles, wheeze, rhonchi or dullness. CVS: S1 and S2 normal with no audible murmur, regular rhythm. ABDOMEN: No hepatosplenomegaly, normal bowel sounds, no guarding or rigidity. SPINE: No scoliosis or deformity SKIN: No rashes CENTRAL NERVOUS SYSTEM: No focal deficits, tone is normal in all 4 extremities. EXTREMITIES: There is no peripheral edema. No clubbing, no cyanosis. Peripheral pulses are intact. - Labs CBC & Chem 7: 11/12/20 08:07 11/12/20 08:07 Labs: Abnormal Lab Results - Last 24 Hours (Table) 11/13/20 11/13/20 11/14/20 Range/Units 16:43 19:57 01:13 POC Glucose (mg/dL) 273 H 308 H 185 H (75-99) mg/dL 11/14/20 11/14/20 Range/Units 06:06 11:58 POC Glucose (mg/dL) 167 H 279 H (75-99) mg/dL Microbiology - Last 24 Hours (Table) 11/12/20 20:55 Gram Stain - Preliminary Sputum Sputum Culture - Preliminary 11/08/20 14:52 Blood Culture - Preliminary Blood No Growth after 120 hours 11/08/20 14:52 Blood Culture - Preliminary Blood No Growth after 120 hours Assessment and Plan Assessment: 1 Acute hypoxic respiratory failure related to acute COVID 19 related pneumonitis, onset of symptoms was 6 days prior to presentation, tested positive on 11/06/2020, patient was started on Remdesivir on 11/09/2020, dexamethasone, prophylactic Lovenox 40 mg daily. Patient has a known exposure to his and daughter with COVID 19 infection and patient's was hospitalized with COVID 19 pneumonia 2 Fever, chest congestion, body aches, loss of taste, cough, related to the above 3 Lymphopenia, elevated inflammatory markers related to acute COVID 19 infection 4 Diabetes mellitus type 2 5 History of perforated diverticulitis status post bowel resection and colostomy Plan: The patient was seen and evaluated by Dr. Correa Recovered and on room air Cleared for discharge from the pulmonary standpoint Complete a 10 day course of dexamethasone Follow-up in the office in 3 weeks I, the cosigning physician, performed a history & physical examination of the patient. Lungs sounds are clear. Maintaining good O2 saturations in the 90s on room air. I discussed the assessment and plan of care with my nurse practitioner, Belinda Jolly. I attest to the above note as dictated by her.
--- NOTE | 2020-11-14 15:38 | PN ---
PROGRESS NOTE DATE OF SERVICE: 11/14/2020 REASON FOR FOLLOWUP: COVID-19 infection. INTERVAL HISTORY: The patient is currently afebrile. The patient is breathing comfortably currently on room air. Denies any chest pain or shortness. Minimal cough. No nausea, no vomiting. No abdominal pain, no diarrhea. PHYSICAL EXAMINATION: Blood pressure 126/69, pulse of 62, temperature 97.7. He is 95% on room air. General description is a middle-aged male up in the chair in no distress. Respiratory system: Unlabored breathing ( ) wheeze. Heart S1, S2. Regular rate and rhythm. Abdomen soft, no tenderness. LABS: No new labs have been obtained today. IMPRESSION/PLAN: Patient with acute COVID-19 infection in this patient who has shown overall clinical improvement. Patient has completed his Remdesivir therapy currently and will be discharged home on a low dose of dexamethasone, zinc and ascorbic acid and close outpatient followup. MMODL / IJN: [id number] /
== END 2020-11-14 14:03 | disposition home or self-care (01) | DRG 177 ==
LOC: EC 14:18 → 4SSUR 16:53 → 6NMEDSUR 11-09 05:38 → 3SCARD 11-11 12:53
PROVIDERS: ADMIT Family Medicine; ATTEND Family Medicine
DX: U07.1 COVID-19 (principal); J12.82 Pneumonia due to coronavirus disease 2019; J96.01 Acute respiratory failure with hypoxia; K57.92 Diverticulitis of intestine, part unspecified, without perforation or abscess without bleeding; E87.1 Hypo-osmolality and hyponatremia; Z90.49 Acquired absence of other specified parts of digestive tract; E11.9 Type 2 diabetes mellitus without complications; Z79.4 Long term (current) use of insulin; E66.9 Obesity, unspecified; Z68.38 Body mass index [BMI] 38.0-38.9, adult; D72.810 Lymphocytopenia; E78.5 Hyperlipidemia, unspecified; I10 Essential (primary) hypertension
CPT/HCPCS: 36415; 71045; 71275; 80048; 80053; 81001; 82728; 83605; 83615; 84145; 85025; 85379; 85610; 86140; 87040; 87070; 87205; 94760

== ENCOUNTER 2021-05-24 11:12 | Day surgery (SDC) | payer BC ==
[2021-05-21 09:26] VITALS: BMI 36.2
[~2021-05-24 11:12] MED LIST: LACTATED RINGERS 1,000 ML IV SCH
[2021-05-24 11:49] VITALS: TEMP 97.8
[2021-05-24] MEDS ORDERED: LACTATED RINGERS 1,000 ML IV ONE (11:49)
[2021-05-24] MEDS ORDERED: PROPOFOL 10 MG/ML 20 ML VIAL IV ONE (13:31)
--- NOTE | 2021-05-24 14:07 | P.GSHP ---
History of Present Illness H&P Date: 05/24/21 Chief Complaint: History of perforated diverticulitis This is a 50-year-old male who's. History of perforated diverticulitis with colostomy. Patient presents today for colonoscopy. He is undergoing reversal of colostomy tomorrow. Past Medical History Past Medical History: Cancer, Diabetes Mellitus, Hypertension, Sleep Apnea/CPAP/BIPAP Additional Past Medical History / Comment(s): diverticulitis with colostomy (09/2016), skin cancer, herniated discs.,uses C-pap machine., hx of COVID with hospitalization for 1 week. History of Any Multi-Drug Resistant Organisms: None Reported Past Surgical History: Bowel Resection Additional Past Surgical History / Comment(s): colectomy with colostomy Past Anesthesia/Blood Transfusion Reactions: No Reported Reaction Additional Past Anesthesia/Blood Transfusion Reaction / Comment(s): mother and brother get hyper-(talking alot) Past Psychological History: No Psychological Hx Reported Smoking Status: Never smoker Past Alcohol Use History: None Reported Past Drug Use History: None Reported - Past Family History Brother(s) Family Medical History: Cancer, Myocardial Infarction ([place]) Additional Family Medical History / Comment(s): prostate ca. Medications and Allergies Home Medications Medication Instructions Recorded Confirmed Type Acetaminophen [Tylenol] 650 mg PO Q8H PRN 11/08/20 05/21/21 History INSULIN ASPART (NovoLOG) [NovoLOG 12 unit SQ AC-TID 11/08/20 05/21/21 History (formulary)] Lisinopril [Zestril] 10 mg PO DAILY 11/08/20 05/21/21 History Zinc 100 mg PO DAILY 11/08/20 05/21/21 History Ascorbic Acid [Vitamin C] 1,000 mg PO DAILY 05/21/21 05/21/21 History Cholecalciferol [Vitamin D3 (25 50 mcg PO DAILY 05/21/21 05/21/21 History Mcg = 1000 Iu)] Gemfibrozil [Lopid] 600 mg PO AC-BID 05/21/21 05/21/21 History Magnesium 250 mg PO DAILY 05/21/21 05/21/21 History Rosuvastatin [Crestor] 20 mg PO DAILY 05/21/21 05/21/21 History Allergies Allergy/AdvReac Type Severity Reaction Status Date / Time No Known Allergies Allergy Verified 05/21/21 08:34 Surgical - Exam Vital Signs Temp Pulse Resp BP Pulse Ox 97.8 F 78 18 163/90 97 05/24/21 11:49 05/24/21 11:49 05/24/21 11:49 05/24/21 11:49 05/24/21 11:49 - General well developed, well nourished, no distress - Eyes PERRL - ENT normal pinna - Neck no masses - Respiratory normal expansion - Cardiovascular Rhythm: regular - Abdomen Colostomy in left lower quadrant Abdomen: soft, non tender Assessment and Plan Plan: History of perforated diverticulitis. We'll perform colonoscopy.
--- NOTE | 2021-05-24 14:09 | P.OP ---
Date of Procedure: 05/24/21 Preoperative Diagnosis: History of perforated diverticula diverticulitis Postoperative Diagnosis: Diverticulosis Procedure(s) Performed: Colonoscopy Anesthesia: MAC Surgeon: Alan Bass Pathology: none sent Condition: stable Disposition: PACU Description of Procedure: Patient's placed on the endoscopy table lateral position. He received IV sedation. Digital rectal exam was performed which revealed no ebonized. The flexible colonoscope was then placed patient rectal stump. The rectal stump appeared normal. It measured prostate 18 cm length. Scope was withdrawn. The patient had rotated on his back and the colostomy was entered with the colonoscope. There was a few scattered diverticuli in the left colon. Scope was positioned elevated this ileocecal valve. The cecum, ascending and transverse colon appeared normal. In the descending colon was a few scattered diverticula. Scope was withdrawn for patient.
[2021-05-24 14:25] VITALS: RESP 16
[2021-05-24 14:48] VITALS: BP 160/92; PULSE 87
== END 2021-05-24 15:32 | disposition home or self-care (01) ==
LOC: ORWHC2ENDO 11:12
PROVIDERS: ATTEND Surgery
DX: K57.90 Diverticulosis of intestine, part unspecified, without perforation or abscess without bleeding (principal); E11.9 Type 2 diabetes mellitus without complications; G47.30 Sleep apnea, unspecified; I10 Essential (primary) hypertension; Z79.4 Long term (current) use of insulin; Z82.49 Family history of ischemic heart disease and other diseases of the circulatory system; Z85.828 Personal history of other malignant neoplasm of skin; Z86.16 Personal history of COVID-19; Z90.49 Acquired absence of other specified parts of digestive tract
CPT/HCPCS: 44388; 93005; J2704

== ENCOUNTER 2021-05-25 05:39 | Inpatient (IN) | payer BC ==
[2021-05-21 09:33] VITALS: BMI 36.2
[~2021-05-25 05:39] MED LIST changes: +ACETAMINOPHEN TAB 500 MG TAB PO PRN; +HEPARIN SODIUM,PORCINE/PF 5,000 UNIT/0.5 ML SYRINGE SQ PRN; -LACTATED RINGERS 1,000 ML IV SCH; +metroNIDAZOLE-NS PMX 500 MG in SALINE 1 100ML.BAG IVPB PRN
[2021-05-25] MEDS ORDERED: LIDOCAINE 1% (10MG/ML) FOR IV START INTRADERMA PRN (05:43)
[2021-05-25] MEDS ORDERED: ONDANSETRON 4 MG/2 ML VIAL IVP ONE (05:43)
[2021-05-25] MEDS ORDERED: DEXAMETHASONE SOD PHOSPHATE 4 MG/ML 1 ML VIAL IV ONE (05:43)
[2021-05-25] MEDS ORDERED: SCOPOLAMINE 1.5MG/72HR PATCH TRANSDERM ONE (05:43)
[2021-05-25] MEDS ORDERED: metroNIDAZOLE-NS PMX 500 MG in SALINE 1 100ML.BAG IVPB PRN (06:01)
[2021-05-25] MEDS: LACTATED RINGERS 1,000 ML IV SCH (06:45)
[2021-05-25 06:54] LABS: Glucose,Whole Blood 158 mg/dL (75-99)
[2021-05-25] MEDS ORDERED: fentaNYL (PF) 50 MCG/ML 2 ML AMP IV ONE (07:31)
[2021-05-25] MEDS ORDERED: MIDAZOLAM 2 MG/2 ML VIAL IV ONE (07:31)
--- NOTE | 2021-05-25 08:27 | P.GSHP ---
History of Present Illness H&P Date: 05/25/21 Chief Complaint: History of perforated diverticulitis, parastomal hernia This 48-year-old male who presents today for reversal of colostomy. Patient underwent previous [place] procedure with Dr. Slime garcia. He is on parastomal hernia. He'll undergo repair of parastomal hernia with reversal colostomy today. Past Medical History Past Medical History: Cancer, Diabetes Mellitus, Hypertension, Sleep Apnea/CPAP/BIPAP Additional Past Medical History / Comment(s): diverticulitis with colostomy (09/2016), skin cancer, herniated discs.,uses C-pap machine., hx of COVID with hospitalization for 1 week. History of Any Multi-Drug Resistant Organisms: None Reported Past Surgical History: Bowel Resection Additional Past Surgical History / Comment(s): colectomy with colostomy Past Anesthesia/Blood Transfusion Reactions: No Reported Reaction Additional Past Anesthesia/Blood Transfusion Reaction / Comment(s): mother and brother get hyper-(talking alot) Past Psychological History: No Psychological Hx Reported Smoking Status: Never smoker Past Alcohol Use History: None Reported Past Drug Use History: None Reported - Past Family History Brother(s) Family Medical History: Cancer, Myocardial Infarction ([place]) Additional Family Medical History / Comment(s): prostate ca. Medications and Allergies Home Medications Medication Instructions Recorded Confirmed Type Acetaminophen [Tylenol] 650 mg PO Q8H PRN 11/08/20 05/21/21 History INSULIN ASPART (NovoLOG) [NovoLOG 12 unit SQ AC-TID 11/08/20 05/21/21 History (formulary)] Lisinopril [Zestril] 10 mg PO DAILY 11/08/20 05/21/21 History Zinc 100 mg PO DAILY 11/08/20 05/21/21 History Ascorbic Acid [Vitamin C] 1,000 mg PO DAILY 05/21/21 05/21/21 History Cholecalciferol [Vitamin D3 (25 50 mcg PO DAILY 05/21/21 05/21/21 History Mcg = 1000 Iu)] Gemfibrozil [Lopid] 600 mg PO AC-BID 05/21/21 05/21/21 History Magnesium 250 mg PO DAILY 05/21/21 05/21/21 History Rosuvastatin [Crestor] 20 mg PO DAILY 05/21/21 05/21/21 History Allergies Allergy/AdvReac Type Severity Reaction Status Date / Time No Known Allergies Allergy Verified 05/21/21 08:34 Surgical - Exam Vital Signs Temp Pulse Resp BP Pulse Ox 98.7 F 89 16 140/79 97 05/25/21 06:35 05/25/21 06:35 05/25/21 06:35 05/25/21 06:35 05/25/21 06:35 - General well developed, well nourished, no distress - Eyes PERRL - ENT normal pinna - Neck no masses - Respiratory normal expansion - Cardiovascular Rhythm: regular - Abdomen Left lower quadrant parastomal hernia Abdomen: soft, non tender Results - Labs Abnormal Lab Results - Last 24 Hours (Table) 05/25/21 Range/Units 06:43 POC Glucose (mg/dL) 158 H (75-99) mg/dL Assessment and Plan Assessment: History of perforated diverticula is. Patient will undergo reversal of colostomy and repair of parastomal hernia.
[2021-05-25] MEDS ORDERED: HYDROmorphone (PF) 1 MG/ML ONE (08:37)
[2021-05-25] MEDS ORDERED: SODIUM CHLORIDE 0.9% (PF) 10 ML VIAL ONE (08:37)
[2021-05-25] MEDS ORDERED: KETAMINE 10 MG/ML 20 ML VIAL ONE (08:37)
[2021-05-25] MEDS ORDERED: ROCURONIUM 10 MG/ML (5 ML VIAL) IV ONE (08:37)
[2021-05-25] MEDS ORDERED: fentaNYL (PF) 50 MCG/ML 2 ML AMP ONE (08:37)
[2021-05-25] MEDS ORDERED: PHENYLEPHRINE-0.9% NACL SYG 1,000 MCG/10 ML SYRINGE ONE (08:37)
[2021-05-25] MEDS ORDERED: GLYCOPYRROLATE 0.2 MG/ML 2 ML VIAL ONE (08:37)
[2021-05-25] MEDS ORDERED: LIDOCAINE 1% INJ 10MG/ML (20 ML MDV) ONE (08:37)
[2021-05-25] MEDS ORDERED: SUCCINYLCHOLINE CHLORIDE 100 MG/5 ML SYR IV ONE (08:37)
[2021-05-25] MEDS ORDERED: MIDAZOLAM 2 MG/2 ML VIAL ONE (08:37)
[2021-05-25] MEDS ORDERED: ROPIVACAINE 5 MG/ML 30 ML VIAL ONE (08:37)
[2021-05-25] MEDS ORDERED: PROPOFOL 10 MG/ML 20 ML VIAL IV ONE (08:37)
[2021-05-25] MEDS ORDERED: NEOSTIGMINE 1 MG/ML 10 ML VIAL ONE (08:37)
[2021-05-25] MEDS ORDERED: LACTATED RINGERS 1,000 ML IV ONE ×2 (09:13→09:50)
[2021-05-25] MEDS ORDERED: BENZOCAINE/MENTHOL LOZENG 1 EACH LOZENGE MUCOUS MEM PRN (09:56)
[2021-05-25] MEDS ORDERED: METOCLOPRAMIDE 5 MG/ML 2 ML VIAL IVP PRN (09:56)
[2021-05-25] MEDS ORDERED: ONDANSETRON 4 MG/2 ML VIAL IVP PRN (09:56)
--- NOTE | 2021-05-25 09:56 | P.OP ---
Date of Procedure: 05/25/21 Preoperative Diagnosis: History of perforated diverticulitis Postoperative Diagnosis: History of perforated diverticulitis Incisional hernia Parastomal hernia Procedure(s) Performed: Reversal of colostomy Repair of incisional hernia Repair of parastomal hernia Partial omentectomy Anesthesia: ALBERTO Surgeon: Alan Bass Estimated Blood Loss (ml): 25 Pathology: other (Omentum, colon) Condition: stable Disposition: PACU Description of Procedure: Patient's placed on the operative table in the supine position. He received general anesthesia. His abdomen was prepped and draped in sterile fashion. Also placed in dorsal 5 position. The abdomen was entered through a low midline incision. There was an incisional hernia encountered. Adhesions to the abdominal wall were lysed using sharp dissection. The colostomy was then transected at the fascial level. The left colon was mobilized by dividing the white line of Toldt. The rectal stump was visualized. Patient along rectal stump. The proximal holes then opened and the anvil for the 25 mm EEA stapler was placed into the colon. The colon was then closed using the SHOAIB stapler. The anvil spike was driven through the staple line. Next the outpatient physical therapist assistant placed the EEA stapler in the patient's anus and the spike was driven through the rectal staple line. The Amvisc of the stapler. Stapler closed and fired. 2 intact tissue rings were withdrawn. Under adequate air insufflation the rectal vessels was visualized. There is no evidence of any leaks or extravasation of air. The abdomen was irrigated. The patient had a parastomal hernia. There was incarcerated omentum within the hernia. This was transected sent to pathology. The parastomal hernia was then closed using 0 Ethibond suture and #1 Tevdek suture. The abdomen was then closed using looped #1 PDS suture. Skin was closed addis. The colostomy then excised using left cautery. The anterior fascia was then closed using. 0 Ethibond suture. Skin was closed this with the stapler at the colostomy site. Patient top she will was sent to rec overy room in stable condition.
--- NOTE | 2021-05-25 10:16 | P.ANPRN ---
Procedure Note - Anesthesia - Nerve Block Performed Bilateral Erector Spinae Time Out Performed: Yes (07:30) Date of Procedure: 05/25/21 Procedure Start Time: Procedure Stop Time: : Location of Patient: PreOp Indication: Acute Post-Operative Pain, Requested by Surgeon (Dr Bass) Sedation Type: Sedate with meaningful contact maintained Preparation: Sterile Prep Position: Prone Catheter: None Needle Types: Pajunk Needle Gauge: 21 Ultrasound used to visualize needle placement: Yes Ultrasound used to observe medication spread: Yes Injectate: 0.5% Ropivacaine (see comment for volume) (15cc +10cc PFNormal saline each side) Blood Aspirated: No Pain Paresthesia on Injection Noted: No Resistance on Injection: Normal Image Stored and Saved: Yes Events: Uneventful and Well Tolerated
[2021-05-25] MEDS: HYDROmorphone 0.5 MG/0.5 ML SYRINGE IVP PRN ×3 (10:30→18:16)
[2021-05-25 12:13] LABS: African American GFR (CKD) >90 (>60 ml/min/1.73 sqM); Anion Gap 10 mmol/L; Blood Urea Nitrogen 17 mg/dL (9-20); Calcium 8.6 mg/dL (8.4-10.2); Carbon Dioxide 22 mmol/L (22-30); Chloride 102 mmol/L (98-107); Glucose 225 mg/dL (74-99); Non-African American GFR(CKD) >90 (>60 ml/min/1.73 sqM); Sodium 134 mmol/L (137-145)
[2021-05-25 12:29] LABS: Potassium 4.7 mmol/L (3.5-5.1)
[2021-05-25 13:52] LABS: Basophils % (A) 0 %; Eosinophils # (A) 0.1 k/uL (0-0.7); Eosinophils % (A) 1 %; HCT 41.7 % (39.0-53.0); HGB 14.3 gm/dL (13.0-17.5); Lymphocytes # (A) 0.3 k/uL (1.0-4.8); Lymphocytes % (A) 2 %; MCH 31.7 pg (25.0-35.0); MCHC 34.3 g/dL (31.0-37.0); MCV 92.5 fL (80.0-100.0); Mean Platelet Volume 8.2; Monocytes # (A) 0.3 k/uL (0-1.0); Monocytes % (A) 2 %; Neutrophils # (A) 14.2 k/uL (1.3-7.7); Neutrophils % (A) 95 %; Platelet Count 202 k/uL (150-450); RBC 4.51 m/uL (4.30-5.90)
[2021-05-25 16:47] LABS: Glucose,Whole Blood 139 mg/dL (75-99)
[2021-05-25] MEDS: INSULIN ASPART (NovoLOG) 100 UNIT/ML VIAL SQ SCH ×2 (17:20→22:25)
[2021-05-25] MEDS ORDERED: INSULIN ASPART (NovoLOG) 100 UNIT/ML VIAL SQ SCH (17:30)
[2021-05-25] MEDS ORDERED: ACETAMINOPHEN TAB 325 MG TAB PO PRN (17:38)
[2021-05-25] MEDS: D5-0.45% NACL WITH KCL 20MEQ/L 1,000 ML IV SCH ×3 (17:41→23:07)
[2021-05-25] MEDS: HEPARIN SODIUM,PORCINE/PF 5,000 UNIT/0.5 ML SYRINGE SQ SCH ×2 (17:41→23:03)
--- NOTE | 2021-05-25 18:16 | P.CON ---
Consult Note - . Consult date: 05/25/21 Assessment/Plan:: Medical consultation: Diabetes mellitus type 2, hypertension, hyperlipidemia, and several other comorbidities HPI. 48-year-old male was admitted to the hospital for reversal of a colostomy. Patient underwent repair of parastomal hernia with reversal of colostomy with Dr. mcintosh. Patient seen and examined at bedside after surgical intervention. Patient resting comfortably in bed with no acute signs of distress. Patient endorses mild discomfort to surgical incision sites. Patient denies fever, chills, shortness of breath, chest pain, palpitations, or diarrhea at this time. Patient instructed to use incentive spirometer 10 times per hour for post anesthesia. Diagnostic testing results reviewed presurgical. Physical assessment Gen.: Well-developed, obesity no acute signs of distress HEENT: normocephalic, nontraumatic, PERRLA, supple, trachea midline, no masses noted Respirator: Anterior and posterior lung escudero diminished throughout, normal chest expansion Cardiovascular: S1, S2 present no murmurs no clicks no gallops no rubs noted, normal sinus rhythm, radial and pedal pulses +2 Abdomen: Soft and mild tenderness noted to surgical's incisions bowel sounds hypoactive Psychiatric: Alert and oriented 4 and appropriate Assessment: Repair of parastomal hernia with reversal of colostomy. History of perforated diverticulitis Diabetes mellitus type 2 Hypertension Sleep apnea/CPAP BiPAP Herniated disc History of COVID-19 Plan: Postsurgical repair of parastomal hernia with reversal of colostomy; watch for signs and symptoms of infectious process Diabetes mellitus type 2, initiate sliding scale per protocol Initiate home medications with clear liquid diet recommended by surgery Obtain diagnostic labs in the a.m. and chest x-ray for baseline postanesthesia Monitor vital signs and diagnostic testing Further recommendations to come based on patient's clinical condition We'll continue to follow on a medical basis
[2021-05-25 21:28] LABS: Glucose,Whole Blood 130 mg/dL (75-99)
[2021-05-25] MEDS: FAMOTIDINE 20 MG/2 ML VIAL IV SCH (22:24)
[2021-05-25] MEDS: KETOROLAC 15 MG/ML 1 ML VIAL IVP PRN (23:03)
[2021-05-26 03:05] LABS: Glucose,Whole Blood 122 mg/dL (75-99)
[2021-05-26 05:25] LABS: Basophils % (A) 0 %; Eosinophils # (A) 0.2 k/uL (0-0.7); Eosinophils % (A) 1 %; HCT 40.1 % (39.0-53.0); HGB 13.5 gm/dL (13.0-17.5); Lymphocytes # (A) 1.6 k/uL (1.0-4.8); Lymphocytes % (A) 12 %; MCH 31.1 pg (25.0-35.0); MCHC 33.7 g/dL (31.0-37.0); MCV 92.3 fL (80.0-100.0); Mean Platelet Volume 7.4; Monocytes # (A) 0.6 k/uL (0-1.0); Monocytes % (A) 5 %; Neutrophils # (A) 10.3 k/uL (1.3-7.7); Neutrophils % (A) 80 %; Platelet Count 296 k/uL (150-450); RBC 4.34 m/uL (4.30-5.90); RDW 11.5 % (11.5-15.5); WBC 12.8 k/uL (3.8-10.6)
[2021-05-26] MEDS: D5-0.45% NACL WITH KCL 20MEQ/L 1,000 ML IV SCH ×3 (05:31→22:23)
[2021-05-26 07:52] LABS: Glucose,Whole Blood 133 mg/dL (75-99)
[2021-05-26] MEDS: KETOROLAC 15 MG/ML 1 ML VIAL IVP PRN (07:55)
--- NOTE | 2021-05-26 08:00 | XR ---
EXAMINATION TYPE: XR abdomen acute w cxr DATE OF EXAM: 05/26/2021 COMPARISON: NONE HISTORY: 50-year-old male with low oxygen saturation, postop colostomy reversal yesterday. TECHNIQUE: Supine, upright, and left side down lateral decubitus views of the abdomen are obtained. FINDINGS: Frontal view of the chest shows heart and lungs are normal in size. Some mild patchy densit y at the periphery of the left base. No other consolidation or pleural effusion. There is mild free air below both hemidiaphragms. Some prominent air-filled colon is present especial ly in the right side of the abdomen. Skin addis along the anterior midline and left lower quadrant. Pelvic phleboliths. IMPRESSION: 1. Mild patchy density at the left base, likely atelectasis rather than infiltrate. 2. Mild free intraperitoneal air is seen below both hemidiaphragms, likely postsurgical. Clinically c orrelate. 3. Prominent air within right-sided colon. There may be a mild postoperative ileus.
[2021-05-26] MEDS: INSULIN ASPART (NovoLOG) 100 UNIT/ML VIAL SQ SCH ×4 (08:15→21:32)
[2021-05-26] MEDS: ALVIMOPAN 12 MG CAPSULE PO SCH ×2 (08:17→21:31)
[2021-05-26] MEDS: HEPARIN SODIUM,PORCINE/PF 5,000 UNIT/0.5 ML SYRINGE SQ SCH ×2 (08:17→17:45)
[2021-05-26] MEDS: ASCORBIC ACID 500 MG TAB PO SCH (08:17)
[2021-05-26] MEDS: lisinopriL 10 MG TAB PO SCH (08:18)
[2021-05-26] MEDS: CHOLECALCIFEROL 25 MCG (1000 IU) TABLET PO SCH (08:18)
[2021-05-26] MEDS: ZINC SULFATE 220 MG CAP PO SCH (08:18)
[2021-05-26] MEDS: ATORVASTATIN 40 MG TAB PO SCH (08:18)
[2021-05-26] MEDS: MAGNESIUM OXIDE 400 MG TAB PO SCH (08:18)
[2021-05-26] MEDS: FENOFIBRATE 160 MG TAB PO SCH (08:18)
[2021-05-26] MEDS: FAMOTIDINE 20 MG/2 ML VIAL IV SCH ×2 (08:18→21:31)
[2021-05-26] MEDS: LACTATED RINGERS 1,000 ML IV SCH (08:29)
[2021-05-26] MEDS ORDERED: HYDROmorphone 1 MG/ML 1 ML SYRINGE IVP PRN (09:10)
[2021-05-26 10:43] LABS: African American GFR (CKD) 99.8 (60.0-200.0); Albumin 4.1 g/dL (3.80-4.90); Albumin/Globulin Ratio 2.41 (1.60-3.17); Anion Gap 8.6 mmol/L (4.00-12.00); Calcium 8.5 mg/dL (8.7-10.3); Carbon Dioxide 27.4 mmol/L (21.6-31.8); Globulin 1.7 g/dL (1.6-3.3); Non-African American GFR(CKD) 86.2 (60.0-200.0); Total Bilirubin 0.4 mg/dL (0.3-1.2); Total Protein 5.8 g/dL (6.2-8.2)
[2021-05-26 11:55] LABS: Glucose,Whole Blood 141 mg/dL (75-99)
[2021-05-26] MEDS: KETOROLAC 15 MG/ML 1 ML VIAL IVP SCH ×2 (12:51→17:39)
--- NOTE | 2021-05-26 13:21 | P.PN ---
Subjective Progress Note Date: 05/26/21 CHIEF COMPLAINT: History of perforated diverticulitis HISTORY OF PRESENT ILLNESS: Patient is status post reversal of colostomy, repair of incisional hernia, repair of parastomal hernia and partial omentectomy. Patient reports that Toradol is not completely controlling his pain. He didn't denies any nausea or vomiting. No flatus. He had acute abdominal series completed that was ordered by medicine service showing mild patchy density at the left base, likely atelectasis. Mild free intraperitoneal air is seen below both hemidiaphragms likely postsurgical. Prominent air within the right colon. There may be a mild postoperative ileus. Afebrile heart rate 106 WBC is down from 15-12.8 PHYSICAL EXAM: VITAL SIGNS: Reviewed. GENERAL: Well-developed in no acute distress. HEENT: No sclera icterus. Extraocular movements grossly intact. Moist buccal mucosa. Head is atraumatic, normocephalic. ABDOMEN: Soft. Nondistended. Nontender. NEUROLOGIC: Alert and oriented. Cranial nerves II through XII grossly intact. ASSESSMENT: 1. History of perforated diverticulitis, incisional hernia and parastomal hernia status post reversal of colostomy, repair of incisional hernia, repair of parastomal hernia and partial omentectomy. Postop day #1 PLAN: -Add IV Dilaudid 1 mg every 3 hours as needed to help with pain control -Change Toradol to scheduled -Continue clear liquid diet -Encourage patient to ambulate -Encourage patient to use incentive spirometer -GI prophylaxis Pepcid and DVT prophylaxis subcu heparin Physician Mult Au Matic Operator note has been reviewed by physician. Signing provider agrees with the documented findings, assessment, and plan of care. Objective - Vital Signs Vital signs: Vital Signs Temp 99.0 F 05/26/21 11:55 Pulse 106 H 05/26/21 11:55 Resp 18 05/26/21 11:55 BP 121/75 05/26/21 11:55 Pulse Ox 97 05/26/21 11:55 Intake & Output 05/25/21 05/26/21 05/26/21 18:59 06:59 18:59 Intake Total 1550 Output Total 2450 350 Balance -900 -350 Intake: IV 1550 Output: Urine 2425 350 Uretheral (Seth) 100 Estimated Blood Loss 25 Other: Voiding Method Indwelling Catheter Urinal - Labs CBC & Chem 7: 05/26/21 05:08 05/26/21 05:08 Labs: Abnormal Lab Results - Last 24 Hours (Table) 05/25/21 05/25/21 05/25/21 Range/Units 13:26 16:46 21:14 WBC 15.0 H (3.8-10.6) k/uL Neutrophils # 14.2 H (1.3-7.7) k/uL Lymphocytes # 0.3 L (1.0-4.8) k/uL Glucose (70-110) mg/dL POC Glucose (mg/dL) 139 H 130 H (75-99) mg/dL Calcium (8.7-10.3) mg/dL Total Protein (6.2-8.2) g/dL 05/26/21 05/26/21 05/26/21 Range/Units 02:51 05:08 05:08 WBC 12.8 H (3.8-10.6) k/uL Neutrophils # 10.3 H (1.3-7.7) k/uL Lymphocytes # (1.0-4.8) k/uL Glucose 124 H (70-110) mg/dL POC Glucose (mg/dL) 122 H (75-99) mg/dL Calcium 8.5 L (8.7-10.3) mg/dL Total Protein 5.8 L (6.2-8.2) g/dL 05/26/21 05/26/21 Range/Units 07:51 11:54 WBC (3.8-10.6) k/uL Neutrophils # (1.3-7.7) k/uL Lymphocytes # (1.0-4.8) k/uL Glucose (70-110) mg/dL POC Glucose (mg/dL) 133 H 141 H (75-99) mg/dL Calcium (8.7-10.3) mg/dL Total Protein (6.2-8.2) g/dL
[2021-05-26 17:31] LABS: Glucose,Whole Blood 132 mg/dL (75-99)
--- NOTE | 2021-05-26 17:52 | P.CON ---
Consult Note - . Consult date: 05/26/21 Assessment/Plan:: Medical consultation: Diabetes mellitus type 2, hypertension, hyperlipidemia, and several other comorbidities HPI. 48-year-old male was admitted to the hospital for reversal of a colostomy. Patient underwent repair of parastomal hernia with reversal of colostomy with Dr. mcintosh. Patient resting comfortably in bed with no acute signs of distress. Patient endorses mild discomfort to surgical incision sites. Patient denies fever, chills, shortness of breath, chest pain, palpitations, or diarrhea at this time. Review of diagnostic testing, chest x-ray most likely atelectasis, abdominal series, mild postoperative ileus noted. Physical assessment Gen.: Well-developed, obesity no acute signs of distress HEENT: normocephalic, nontraumatic, PERRLA, supple, trachea midline, no masses noted Respirator: Anterior and posterior lung escudero diminished throughout, normal chest expansion Cardiovascular: S1, S2 present no murmurs no clicks no gallops no rubs noted, normal sinus rhythm, radial and pedal pulses +2 Abdomen: Soft and mild tenderness noted to surgical's incisions bowel sounds normal active Psychiatric: Alert and oriented 4 and appropriate Assessment: Repair of parastomal hernia with reversal of colostomy. History of perforated diverticulitis Diabetes mellitus type 2 Hypertension Sleep apnea/CPAP BiPAP Herniated disc History of COVID-19 Plan: Postsurgical repair of parastomal hernia with reversal of colostomy; watch for signs and symptoms of infectious process Diabetes mellitus type 2, initiate sliding scale per protocol Initiate home medications with clear liquid diet recommended by surgery Monitor vital signs and diagnostic testing Further recommendations to come based on patient's clinical condition We'll continue to follow on a medical basis
[2021-05-26 21:14] LABS: Glucose,Whole Blood 144 mg/dL (75-99)
[2021-05-27] MEDS: KETOROLAC 15 MG/ML 1 ML VIAL IVP SCH ×5 (00:04→23:20)
[2021-05-27] MEDS: HEPARIN SODIUM,PORCINE/PF 5,000 UNIT/0.5 ML SYRINGE SQ SCH ×4 (00:04→23:20)
[2021-05-27 03:11] LABS: Glucose,Whole Blood 131 mg/dL (75-99)
[2021-05-27] MEDS: LACTATED RINGERS 1,000 ML IV SCH (07:25)
[2021-05-27 08:00] LABS: Glucose,Whole Blood 149 mg/dL (75-99)
[2021-05-27] MEDS: FAMOTIDINE 20 MG/2 ML VIAL IV SCH (09:14)
[2021-05-27] MEDS: ZINC SULFATE 220 MG CAP PO SCH (09:15)
[2021-05-27] MEDS: ASCORBIC ACID 500 MG TAB PO SCH (09:15)
[2021-05-27] MEDS: CHOLECALCIFEROL 25 MCG (1000 IU) TABLET PO SCH (09:15)
[2021-05-27] MEDS: FENOFIBRATE 160 MG TAB PO SCH (09:15)
[2021-05-27] MEDS: MAGNESIUM OXIDE 400 MG TAB PO SCH (09:15)
[2021-05-27] MEDS: lisinopriL 10 MG TAB PO SCH (09:16)
[2021-05-27] MEDS: ATORVASTATIN 40 MG TAB PO SCH (09:16)
[2021-05-27] MEDS: INSULIN ASPART (NovoLOG) 100 UNIT/ML VIAL SQ SCH ×4 (09:16→20:04)
[2021-05-27] MEDS: ALVIMOPAN 12 MG CAPSULE PO SCH ×2 (09:18→20:04)
[2021-05-27 10:45] LABS: Basophils % (A) 0 %; Eosinophils # (A) 0.1 k/uL (0-0.7); Eosinophils % (A) 1 %; HCT 41.1 % (39.0-53.0); Lymphocytes # (A) 1.3 k/uL (1.0-4.8); Lymphocytes % (A) 14 %; MCH 30.9 pg (25.0-35.0); MCHC 34.2 g/dL (31.0-37.0); MCV 90.5 fL (80.0-100.0); Mean Platelet Volume 7.7; Monocytes # (A) 0.4 k/uL (0-1.0); Monocytes % (A) 4 %; Neutrophils # (A) 7.7 k/uL (1.3-7.7); Neutrophils % (A) 80 %; Platelet Count 377 k/uL (150-450); RBC 4.54 m/uL (4.30-5.90); WBC 9.6 k/uL (3.8-10.6)
[2021-05-27 11:45] LABS: Glucose,Whole Blood 120 mg/dL (75-99)
[2021-05-27] MEDS: D5-0.45% NACL WITH KCL 20MEQ/L 1,000 ML IV SCH ×3 (12:49→22:23)
--- NOTE | 2021-05-27 13:39 | P.PN ---
Subjective Progress Note Date: 05/27/21 CHIEF COMPLAINT: History of perforated diverticulitis HISTORY OF PRESENT ILLNESS: Patient is status post reversal of colostomy, repair of incisional hernia, repair of parastomal hernia and partial omentectomy. Patient reports that his pain is controlled. He denies any nausea or vomiting. He is having flatus and did have some bloody bowel movements. He denies any nausea or vomiting. He is hungry and and asking for diet. He did have a temp of 100.4 last night. And has had some mild tachycardia. WBC has normalized from 12.8-9.6 hemoglobin is 14 PHYSICAL EXAM: VITAL SIGNS: Reviewed. GENERAL: Well-developed in no acute distress. HEENT: No sclera icterus. Extraocular movements grossly intact. Moist buccal mucosa. Head is atraumatic, normocephalic. ABDOMEN: Soft. Nondistended. Incision sites with minimal blood drainage noted otherwise clean dry and intact. No evidence of cellulitis or drainage. NEUROLOGIC: Alert and oriented. Cranial nerves II through XII grossly intact. ASSESSMENT: 1. History of perforated diverticulitis, incisional hernia and parastomal hernia status post reversal of colostomy, repair of incisional hernia, repair of parastomal hernia and partial omentectomy. Postop day #2 2. Low-grade fever likely due to atelectasis. PLAN: -Advance diet to full liquids -Continue pain medication as needed -Encourage patient to ambulate -Encourage patient to use incentive spirometer -GI prophylaxis Pepcid and DVT prophylaxis subcu heparin Physician Electronics Manufacturer note has been reviewed by physician. Signing provider agrees with the documented findings, assessment, and plan of care. Objective - Vital Signs Vital signs: Vital Signs Temp 98.4 F 05/27/21 11:03 Pulse 98 05/27/21 11:03 Resp 18 05/27/21 11:03 BP 151/88 05/27/21 11:03 Pulse Ox 97 05/27/21 11:03 Intake & Output 05/26/21 05/27/21 05/27/21 18:59 06:59 18:59 Intake Total 1500 1000 Balance 1500 1000 Intake: Intake, IV Titration 1500 1000 Amount D5-0.45% NaCl with KCl 1500 1000 20Meq/l 1,000 ml @ 125 mls/hr IV .Q8H [facility] Rx#: [id number] Other: Voiding Method Urinal Toilet Toilet Urinal # Voids 3 - Labs CBC & Chem 7: 05/27/21 10:24 05/26/21 05:08 Labs: Abnormal Lab Results - Last 24 Hours (Table) 05/26/21 05/26/21 05/27/21 Range/Units 17:29 21:12 02:57 POC Glucose (mg/dL) 132 H 144 H 131 H (75-99) mg/dL 05/27/21 05/27/21 Range/Units 07:57 11:35 POC Glucose (mg/dL) 149 H 120 H (75-99) mg/dL
--- NOTE | 2021-05-27 14:14 | P.CON ---
Consult Note - . Consult date: 05/27/21 Assessment/Plan:: Medical consultation: Diabetes mellitus type 2, hypertension, hyperlipidemia, and several other comorbidities HPI. 48-year-old male was admitted to the hospital for reversal of a colostomy. Patient underwent repair of parastomal hernia with reversal of colostomy with Dr. mcintosh. Patient resting comfortably in bed with no acute signs of distress. Patient endorses mild discomfort to surgical incision sites. Patient denies fever, chills, shortness of breath, chest pain, palpitations, or diarrhea at this time. Review of diagnostic testing within acceptable limits. Patient able to pass flatulence and small bowel movement yesterday. Physical assessment Gen.: Well-developed, obesity no acute signs of distress HEENT: normocephalic, nontraumatic, PERRLA, supple, trachea midline, no masses noted Respirator: Anterior and posterior lung escudero diminished throughout, normal chest expansion Cardiovascular: S1, S2 present no murmurs no clicks no gallops no rubs noted, normal sinus rhythm, radial and pedal pulses +2 Abdomen: Soft and mild tenderness noted to surgical's incisions bowel sounds normal active Psychiatric: Alert and oriented 4 and appropriate Assessment: Repair of parastomal hernia with reversal of colostomy. History of perforated diverticulitis Diabetes mellitus type 2 Hypertension Sleep apnea/CPAP BiPAP Herniated disc History of COVID-19 Plan: Postsurgical repair of parastomal hernia with reversal of colostomy; watch for signs and symptoms of infectious process Diabetes mellitus type 2, initiate sliding scale per protocol Initiate home medications with full liquid diet recommended by surgery Monitor vital signs and diagnostic testing Further recommendations to come based on patient's clinical condition
[2021-05-27 17:07] LABS: Glucose,Whole Blood 104 mg/dL (75-99)
[2021-05-27 19:59] LABS: Glucose,Whole Blood 132 mg/dL (75-99)
[2021-05-27] MEDS: FAMOTIDINE 20 MG TAB PO SCH (20:04)
[2021-05-28] MEDS: KETOROLAC 15 MG/ML 1 ML VIAL IVP SCH ×2 (04:57→12:23)
[2021-05-28 05:49] LABS: Basophils # (A) 0.1 k/uL (0-0.2); Basophils % (A) 1 %; Eosinophils # (A) 0.5 k/uL (0-0.7); Eosinophils % (A) 5 %; HCT 42.2 % (39.0-53.0); HGB 13.7 gm/dL (13.0-17.5); Lymphocytes # (A) 1.6 k/uL (1.0-4.8); Lymphocytes % (A) 18 %; MCH 30.2 pg (25.0-35.0); MCHC 32.5 g/dL (31.0-37.0); MCV 92.9 fL (80.0-100.0); Mean Platelet Volume 7.7; Monocytes # (A) 0.4 k/uL (0-1.0); Monocytes % (A) 4 %; Neutrophils # (A) 6.5 k/uL (1.3-7.7); Neutrophils % (A) 71 %; Platelet Count 285 k/uL (150-450); RBC 4.54 m/uL (4.30-5.90); RDW 11.3 % (11.5-15.5); WBC 9.1 k/uL (3.8-10.6)
[2021-05-28 07:21] LABS: Glucose,Whole Blood 124 mg/dL (75-99)
[2021-05-28] MEDS: INSULIN ASPART (NovoLOG) 100 UNIT/ML VIAL SQ SCH ×4 (07:31→21:50)
[2021-05-28] MEDS: LACTATED RINGERS 1,000 ML IV SCH (09:31)
[2021-05-28] MEDS: CHOLECALCIFEROL 25 MCG (1000 IU) TABLET PO SCH (09:32)
[2021-05-28] MEDS: ATORVASTATIN 40 MG TAB PO SCH (09:32)
[2021-05-28] MEDS: ZINC SULFATE 220 MG CAP PO SCH (09:32)
[2021-05-28] MEDS: lisinopriL 10 MG TAB PO SCH (09:32)
[2021-05-28] MEDS: FENOFIBRATE 160 MG TAB PO SCH (09:32)
[2021-05-28] MEDS: HEPARIN SODIUM,PORCINE/PF 5,000 UNIT/0.5 ML SYRINGE SQ SCH ×2 (09:32→17:45)
[2021-05-28] MEDS: ASCORBIC ACID 500 MG TAB PO SCH (09:32)
[2021-05-28] MEDS: MAGNESIUM OXIDE 400 MG TAB PO SCH (09:32)
[2021-05-28] MEDS: FAMOTIDINE 20 MG TAB PO SCH ×2 (09:32→21:53)
[2021-05-28 11:38] LABS: Glucose,Whole Blood 111 mg/dL (75-99)
[2021-05-28] MEDS: D5-0.45% NACL WITH KCL 20MEQ/L 1,000 ML IV SCH ×3 (13:40→21:52)
--- NOTE | 2021-05-28 14:46 | P.PN ---
Subjective Progress Note Date: 05/28/21 CHIEF COMPLAINT: History of perforated diverticulitis HISTORY OF PRESENT ILLNESS: Patient is status post reversal of colostomy, repair of incisional hernia, repair of parastomal hernia and partial omentectomy. Patient reports that his pain is controlled. He denies any nausea or vomiting. He is having flatus and did his bowel movements are still bloody. He has been up and ambulating. He is afebrile. Fevers resolved. Tachycardia resolved. WBC 9.1 hemoglobin 13.7 platelets 285 PHYSICAL EXAM: VITAL SIGNS: Reviewed. GENERAL: Well-developed in no acute distress. HEENT: No sclera icterus. Extraocular movements grossly intact. Moist buccal mucosa. Head is atraumatic, normocephalic. ABDOMEN: Soft. Nondistended. Incisional dressing clean dry and intact NEUROLOGIC: Alert and oriented. Cranial nerves II through XII grossly intact. ASSESSMENT: 1. History of perforated diverticulitis, incisional hernia and parastomal hernia status post reversal of colostomy, repair of incisional hernia, repair of parastomal hernia and partial omentectomy. Postop day #3 2. Low-grade fever likely due to atelectasis. PLAN: -Continue full liquid diet -[place] added to help with pain control -Encourage patient to ambulate -Encourage patient to use incentive spirometer -GI prophylaxis Pepcid and DVT prophylaxis subcu heparin Physician Software Controls Engineer note has been reviewed by physician. Signing provider agrees with the documented findings, assessment, and plan of care. Objective - Vital Signs Vital signs: Vital Signs Temp 97.9 F 05/28/21 12:13 Pulse 91 05/28/21 12:13 Resp 17 05/28/21 12:13 BP 155/77 05/28/21 12:13 Pulse Ox 98 05/28/21 12:13 Intake & Output 05/27/21 05/28/21 05/28/21 18:59 06:59 18:59 Intake Total 1250 Balance 1250 Intake: Intake, IV Titration 1250 Amount D5-0.45% NaCl with KCl 1250 20Meq/l 1,000 ml @ 125 mls/hr IV .Q8H [facility] Rx#: [id number] Other: Voiding Method Toilet Toilet Toilet # Voids 2 - Labs CBC & Chem 7: 05/28/21 04:50 05/26/21 05:08 Labs: Abnormal Lab Results - Last 24 Hours (Table) 05/27/21 05/27/21 05/28/21 Range/Units 17:04 19:58 04:50 RDW 11.3 L (11.5-15.5) % POC Glucose (mg/dL) 104 H 132 H (75-99) mg/dL 05/28/21 05/28/21 Range/Units 07:20 11:38 RDW (11.5-15.5) % POC Glucose (mg/dL) 124 H 111 H (75-99) mg/dL
--- NOTE | 2021-05-28 16:04 | P.PN ---
Subjective Progress Note Date: 05/28/21 Medical consultation: Diabetes mellitus type 2, hypertension, hyperlipidemia, and several other comorbidities HPI. 48-year-old male was admitted to the hospital for reversal of a colostomy. Patient underwent repair of parastomal hernia with reversal of colostomy with Dr. mcintosh. Patient resting comfortably in bed with no acute signs of distress. Patient endorses mild discomfort to surgical incision sites. Patient denies fever, chills, shortness of breath, chest pain, palpitations, or diarrhea at this time. Review of diagnostic testing within acceptable limits. Patient able to pass flatulence and small bowel movement yesterday. 05/28/2021 Patient is seen and evaluated in follow-up this morning passing gas and states he had bowel movements this morning with blood noted although repeat bowel movement again this afternoon with no blood. Following along closely with surgery. Hemoglobin is stable at 13.7. Patient states he is tolerating diet and is currently maintained on full liquids. Appropriate home medications have been resumed. Encourage the patient to increase activity as tolerated and continue with incentive spirometer at least 10 times every hour while awake. Patient continues to have some mild abdominal discomfort although states much improved from yesterday. Physical assessment: Gen.: Well-developed, obesity, alert and oriented 3. Temp is 98, pulse is 93, respirations 16, blood pressure is 155/76, oxygen saturation is 97% on room air. HEENT: normocephalic, nontraumatic, PERRLA, supple, trachea midline, no masses noted Respirator: Anterior and posterior lung escudero diminished throughout, normal chest expansion Cardiovascular: S1, S2 muffled Abdomen: Soft and mild tenderness noted to surgical's incisions bowel sounds normal active Psychiatric: Alert and oriented 3 and appropriate Assessment: Repair of parastomal hernia with reversal of colostomy. History of perforated diverticulitis Diabetes mellitus type 2 Hypertension Sleep apnea/CPAP BiPAP Herniated disc History of COVID-19 GI prophylaxis DVT prophylaxis Full code Plan: Recommend to continue with current medications, management, and symptomatic treatment. Hemoglobin is stable today at 13.7 and patient reports to seeing blood in the stool this morning. Will monitor closely. Patient is continued on IV fluids and will decrease the dose as patient is tolerating diet. Encouraged increased activity and continued incentive spirometer use. Patient is continued on full liquid consistent carb and recommend continue monitoring Accu-Cheks before meals and at bedtime. Patient is requesting to go home today. Will continue to follow along with surgical services during hospitalization. Further recommendations to follow based on the clinical course of the patient. Objective - Vital Signs Vital signs: Vital Signs Temp 98 F 05/28/21 05:00 Pulse 93 05/28/21 05:00 Resp 16 05/28/21 05:00 BP 155/76 05/28/21 05:00 Pulse Ox 97 05/28/21 05:00 Intake & Output 05/27/21 05/28/21 05/28/21 18:59 06:59 18:59 Intake Total 1250 Balance 1250 Intake: Intake, IV Titration 1250 Amount D5-0.45% NaCl with KCl 1250 20Meq/l 1,000 ml @ 125 mls/hr IV .Q8H [facility] Rx#: [id number] Other: Voiding Method Toilet Toilet # Voids 2 - Labs CBC & Chem 7: 05/28/21 04:50 05/26/21 05:08 Labs: Abnormal Lab Results - Last 24 Hours (Table) 05/27/21 05/27/21 05/27/21 Range/Units 11:35 17:04 19:58 RDW (11.5-15.5) % POC Glucose (mg/dL) 120 H 104 H 132 H (75-99) mg/dL 05/28/21 05/28/21 Range/Units 04:50 07:20 RDW 11.3 L (11.5-15.5) % POC Glucose (mg/dL) 124 H (75-99) mg/dL
[2021-05-28 17:05] LABS: African American GFR (CKD) 113.4 (60.0-200.0); Anion Gap 11.9 mmol/L (4.00-12.00); BUN/Creat Ratio 14.44 Ratio (12.00-20.00); Calcium 8.7 mg/dL (8.7-10.3); Carbon Dioxide 25.1 mmol/L (21.6-31.8); Non-African American GFR(CKD) 97.9 (60.0-200.0); Potassium 4.1 mmol/L (3.5-5.5)
[2021-05-28 17:38] LABS: Glucose,Whole Blood 114 mg/dL (75-99)
[2021-05-28 21:05] LABS: Glucose,Whole Blood 107 mg/dL (75-99)
[2021-05-28] MEDS: HYDROcodone/APAP 5-325MG 1 EACH TAB PO PRN (21:53)
[2021-05-29] MEDS: D5-0.45% NACL WITH KCL 20MEQ/L 1,000 ML IV SCH (01:57)
[2021-05-29] MEDS: HEPARIN SODIUM,PORCINE/PF 5,000 UNIT/0.5 ML SYRINGE SQ SCH ×2 (02:01→08:50)
[2021-05-29 02:51] LABS: Glucose,Whole Blood 112 mg/dL (75-99)
[2021-05-29] MEDS: HYDROcodone/APAP 5-325MG 1 EACH TAB PO PRN ×2 (02:54→09:08)
[2021-05-29 07:47] LABS: Glucose,Whole Blood 131 mg/dL (75-99)
[2021-05-29] MEDS: INSULIN ASPART (NovoLOG) 100 UNIT/ML VIAL SQ SCH ×2 (07:54→13:58)
[2021-05-29] MEDS: FENOFIBRATE 160 MG TAB PO SCH (08:50)
[2021-05-29] MEDS: MAGNESIUM OXIDE 400 MG TAB PO SCH (08:50)
[2021-05-29] MEDS: FAMOTIDINE 20 MG TAB PO SCH (08:50)
[2021-05-29] MEDS: CHOLECALCIFEROL 25 MCG (1000 IU) TABLET PO SCH (08:50)
[2021-05-29] MEDS: ATORVASTATIN 40 MG TAB PO SCH (08:50)
[2021-05-29] MEDS: ASCORBIC ACID 500 MG TAB PO SCH (08:50)
[2021-05-29] MEDS: ZINC SULFATE 220 MG CAP PO SCH (08:51)
[2021-05-29] MEDS: lisinopriL 10 MG TAB PO SCH (08:51)
--- NOTE | 2021-05-29 12:26 | P.DS ---
Providers Date of admission: 05/25/21 05:39 Expected date of discharge: 05/29/21 Attending physician: Alan Bass Consults: 05/25/21 09:56 Consult Physician Routine Consulting Provider: James Varela Consult Reason/Comments: Medical management Do you want consulting provider notified?: Yes Primary care physician: James Varela Hospital Course: Patient was admitted for colostomy reversal. This was performed on 921. Doing well today. Tolerating full liquids. Would like more to eat. Pain is well- controlled. He would like to go home. Will plan discharge if tolerates regular food. Follow-up one week. Plan - Discharge Summary Discharge Rx Participant: Yes New Discharge Prescriptions: New Ibuprofen [Motrin] 600 mg PO Q6HR PRN #40 tab PRN Reason: Pain Docusate [Colace] 100 mg PO BID #20 cap oxyCODONE HCL [OxyIR] 5 mg PO Q6H PRN 3 Days #10 tab PRN Reason: Pain Acetaminophen Tab [Tylenol] 650 mg PO Q6H #30 tab No Action Zinc 100 mg PO DAILY Acetaminophen [Tylenol] 650 mg PO Q8H PRN PRN Reason: Pain Lisinopril [Zestril] 10 mg PO DAILY INSULIN ASPART (NovoLOG) [NovoLOG (formulary)] 12 unit SQ AC-TID Cholecalciferol [Vitamin D3 (25 Mcg = 1000 Iu)] 50 mcg PO DAILY Gemfibrozil [Lopid] 600 mg PO AC-BID Rosuvastatin [Crestor] 20 mg PO DAILY Ascorbic Acid [Vitamin C] 1,000 mg PO DAILY Magnesium 250 mg PO DAILY Discharge Medication List Acetaminophen [Tylenol] 650 mg PO Q8H PRN 11/08/20 [History] INSULIN ASPART (NovoLOG) [NovoLOG (formulary)] 12 unit SQ AC-TID 11/08/20 [History] Lisinopril [Zestril] 10 mg PO DAILY 11/08/20 [History] Zinc 100 mg PO DAILY 11/08/20 [History] Ascorbic Acid [Vitamin C] 1,000 mg PO DAILY 05/21/21 [History] Cholecalciferol [Vitamin D3 (25 Mcg = 1000 Iu)] 50 mcg PO DAILY 05/21/21 [History] Gemfibrozil [Lopid] 600 mg PO AC-BID 05/21/21 [History] Magnesium 250 mg PO DAILY 05/21/21 [History] Rosuvastatin [Crestor] 20 mg PO DAILY 05/21/21 [History] Acetaminophen Tab [Tylenol] 650 mg PO Q6H #30 tab 05/28/21 [Rx] Docusate [Colace] 100 mg PO BID #20 cap 05/28/21 [Rx] Ibuprofen [Motrin] 600 mg PO Q6HR PRN #40 tab 05/28/21 [Rx] oxyCODONE HCL [OxyIR] 5 mg PO Q6H PRN 3 Days #10 tab 05/28/21 [Rx] Patient Instructions/Handouts: Open Colostomy Reversal (DC)
[2021-05-29 12:49] LABS: Glucose,Whole Blood 118 mg/dL (75-99)
[2021-05-29 13:09] VITALS: BP 117/76; PULSE 93; RESP 17; TEMP 98.3
--- NOTE | 2021-05-29 18:55 | PN ---
PROGRESS NOTE DATE OF SERVICE: 05/29/2021 This 50-year-old gentleman was admitted after repair of parastomal hernia with reversal of colostomy. No chest pain. No palpitations. No fever. PHYSICAL EXAMINATION: Alert and oriented x3. Pulse 93, blood pressure 117/70, respiration 17, temperature 98.3, pulse ox 94% on room air. HEENT: Conjunctivae normal. Oral mucosa moist. NECK: No jugular venous distention. No lymph node enlargement. CARDIOVASCULAR: S1, S2, muffled. No S3, no S4, RESPIRATORY: Diminished breath sounds at the bases. A few scattered rhonchi. ABDOMEN: Soft, status post surgery. LEGS: No edema, no swelling. NERVOUS SYSTEM: No focal deficits. LABS: Accu-Cheks 131 and 118. ASSESSMENT: 1. Status post repair of parastomal hernia with reversal of colostomy. 2. History of perforated diverticulitis. 3. Diabetes type 2. 4. Hypertension. 5. Sleep apnea, CPAP, BiPAP. 6. Herniated disk history. 7. History of COVID-19. 8. GI prophylaxis. 9. DVT prophylaxis. 10.FULL CODE. RECOMMENDATIONS: Continue current management and symptomatic treatment. Otherwise, at this time resume the home medications. Closely follow with primary physician after discharge. Further recommendations to follow. MMODL / IJN: [id number] /
== END 2021-05-29 16:06 | disposition home or self-care (01) | DRG 330 ==
LOC: 2ORMAIN 05:39 → 5NMEDONC 10:48
PROVIDERS: ADMIT Surgery; ATTEND Surgery
PROC: 0WQF0ZZ Repair Abdominal Wall, Open Approach (ICD-10-PCS; 2021-05-25)
PROC: 0DBU0ZZ Excision of Omentum, Open Approach (ICD-10-PCS; 2021-05-25)
PROC: 0DQF0ZZ Repair Right Large Intestine, Open Approach (ICD-10-PCS; principal; 2021-05-25 07:50)
DX: Z43.3 Encounter for attention to colostomy (principal); K91.89 Other postprocedural complications and disorders of digestive system; K56.7 Ileus, unspecified; J98.11 Atelectasis; I10 Essential (primary) hypertension; E66.9 Obesity, unspecified; E78.5 Hyperlipidemia, unspecified; K43.5 Parastomal hernia without obstruction or gangrene; K43.2 Incisional hernia without obstruction or gangrene; E11.9 Type 2 diabetes mellitus without complications; Z79.4 Long term (current) use of insulin; Z79.899 Other long term (current) drug therapy; Z80.42 Family history of malignant neoplasm of prostate; Z82.49 Family history of ischemic heart disease and other diseases of the circulatory system; Z85.828 Personal history of other malignant neoplasm of skin; Z86.16 Personal history of COVID-19; Z98.0 Intestinal bypass and anastomosis status; Z90.49 Acquired absence of other specified parts of digestive tract; R00.0 Tachycardia, unspecified
CPT/HCPCS: 64999; 74022; 80048; 80053; 83735; 85025; 86850; 86900; 86901; 87635; 88304; 94760

== ENCOUNTER 2021-12-03 07:37 | Day surgery (SDC) | payer BC ==
[2021-12-02 10:29] VITALS: BMI 36.9
[~2021-12-03 07:37] MED LIST changes: +DEXAMETHASONE SOD PHOSPHATE 4 MG/ML 1 ML VIAL IV ONE; +HYDROmorphone 0.5 MG/0.5 ML SYRINGE IVP PRN; +LACTATED RINGERS 1,000 ML IV SCH; +LIDOCAINE 1% (10MG/ML) FOR IV START INTRADERMA PRN; +MIDAZOLAM 2 MG/2 ML VIAL IV PRN; +ONDANSETRON 4 MG/2 ML VIAL IVP ONE; +Pre Op ABX Message 1 EACH MISC MISCELLANE ONE; -metroNIDAZOLE-NS PMX 500 MG in SALINE 1 100ML.BAG IVPB PRN
[2021-12-03 08:31] LABS: Glucose,Whole Blood 140 mg/dL (75-99)
[2021-12-03] MEDS ORDERED: ONDANSETRON 4 MG/2 ML VIAL ONE (13:31)
--- NOTE | 2021-12-03 14:12 | P.GSHP ---
History of Present Illness H&P Date: 12/03/21 Chief Complaint: Abdominal wall chronic wound This a 51-year-old male who previously underwent reversal of colostomy several months ago. Patient is developed a chronic wound at his colostomy closure site. Patient resents today for debridement abdominal wall. Past Medical History Past Medical History: Cancer, Diabetes Mellitus, Hyperlipidemia, Hypertension, Pneumonia, Skin Disorder, Sleep Apnea/CPAP/BIPAP Additional Past Medical History / Comment(s): Hx diverticulitis w/ colostomy (09/2016), now reversed. skin cancer, herniated discs, uses C-pap machine. 11/2020 COVID & pneumonia w/ hospitalization x1 week. Abd wall wound @ old colostomy site. History of Any Multi-Drug Resistant Organisms: None Reported Past Surgical History: Bowel Resection, Hernia Repair Additional Past Surgical History / Comment(s): colectomy with colostomy. 05/2021 Reversal colostomy, repair inc hernia. Past Anesthesia/Blood Transfusion Reactions: No Reported Reaction, Family History of Problems w/ Anesthesia Additional Past Anesthesia/Blood Transfusion Reaction / Comment(s): Mother, brother get hyper-(talking alot) Smoking Status: Never smoker - Past Family History Brother(s) Family Medical History: Cancer, Myocardial Infarction ([place]) Additional Family Medical History / Comment(s): prostate cancer Medications and Allergies Home Medications Medication Instructions Recorded Confirmed Type INSULIN ASPART (NovoLOG) [NovoLOG 12 unit SQ AC-TID 11/08/20 12/03/21 History (formulary)] Lisinopril [Zestril] 10 mg PO DAILY 11/08/20 12/03/21 History Cholecalciferol [Vitamin D3 (25 50 mcg PO DAILY 05/21/21 12/03/21 History Mcg = 1000 Iu)] Gemfibrozil [Lopid] 600 mg PO AC-BID 05/21/21 12/03/21 History Rosuvastatin [Crestor] 20 mg PO DAILY 05/21/21 12/03/21 History Levocetirizine Dihydrochloride 5 mg PO DAILY 12/02/21 12/03/21 History [Xyzal] Multivitamins, Thera [Multivitamin 1 tab PO DAILY 12/02/21 12/03/21 History (formulary)] Psyllium Husk 100% [Metamucil 6 gm PO DAILY 12/02/21 12/03/21 History Packet] Allergies Allergy/AdvReac Type Severity Reaction Status Date / Time No Known Allergies Allergy Verified 12/03/21 08:13 Surgical - Exam Vital Signs Temp Pulse Resp Pulse Ox 97.6 F 100 18 96 12/03/21 08:17 12/03/21 08:17 12/03/21 08:17 12/03/21 08:17 - General well developed, well nourished, no distress - Eyes PERRL - ENT normal pinna - Neck no masses - Respiratory normal expansion - Cardiovascular Rhythm: regular - Abdomen Chronic wound at colostomy site. Patient is evidence of inflammation and some purulent drainage. There is approximately a 3 cm area is indurated Abdomen: soft, non tender Results - Labs Abnormal Lab Results - Last 24 Hours (Table) 12/03/21 Range/Units 08:27 POC Glucose (mg/dL) 140 H (75-99) mg/dL Assessment and Plan Assessment: Chronic abdominal wall wound. Patient will undergo debridement abdominal wall today. Patient aware the wound be packed postoperative period he will require dressing changes at home.
[2021-12-03] MEDS ORDERED: HYDROmorphone (PF) 1 MG/ML ONE (14:19)
[2021-12-03] MEDS ORDERED: PROPOFOL 10 MG/ML 20 ML VIAL IV ONE (14:19)
[2021-12-03] MEDS ORDERED: fentaNYL (PF) 50 MCG/ML 2 ML AMP ONE (14:19)
[2021-12-03] MEDS ORDERED: SUCCINYLCHOLINE CHLORIDE 100 MG/5 ML SYR IV ONE (14:19)
[2021-12-03] MEDS ORDERED: LIDOCAINE 1% INJ 10MG/ML (20 ML MDV) ONE (14:19)
[2021-12-03] MEDS ORDERED: MIDAZOLAM 2 MG/2 ML VIAL ONE (14:19)
[2021-12-03] MEDS ORDERED: SODIUM CHLORIDE 0.9% 100 ML with ceFAZolin 2,000 MG IV ONE ×2 (14:39)
[2021-12-03] MEDS ORDERED: BUPIVACAIN-EPI 0.25%-1:200,000 30 ML VIAL SQ ONE (14:48)
[2021-12-03] MEDS ORDERED: LACTATED RINGERS 1,000 ML IV ONE (14:52)
--- NOTE | 2021-12-03 15:01 | P.OP ---
Date of Procedure: 12/03/21 Preoperative Diagnosis: Abdominal wall wound Postoperative Diagnosis: Abdominal wall wound secondary to Ethibond stitch abscess Procedure(s) Performed: Debridement of abdominal wall Anesthesia: ALBERTO Surgeon: Alan Bass Estimated Blood Loss (ml): 5 Pathology: other (Abdominal wall wound) Condition: stable Disposition: PACU Description of Procedure: The patient's placed on the operating table in the supine position. He received IV sedation and general anesthesia. His abdominal wall was prepped and draped in sterile fashion. The patient had a chronic wound at his colostomy closure site in the left lower quadrant. 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 Elliptical skin incision was made using left cautery in cut mode. And then Original tract with wound. And then using the cautery the subcutaneous tissues were divided. The dissecting down level of fascia. At the bottom of the wound there was found to be an infected Ethibond suture. This was cut and removed. The Bovie hemostasis. The wound was then packed with wet-to-dry Kerlix. Patient top she will was sent to recovery room in stable condition.
[2021-12-03 15:12] VITALS: TEMP 96.8
[2021-12-03 15:20] LABS: Glucose,Whole Blood 137 mg/dL (75-99)
[2021-12-03 16:38] VITALS: BP 109/72; PULSE 87; RESP 17
--- NOTE | 2021-12-08 06:07 | CDI ---
[facility] [address] [place] [address] Date: 12/08/2021 05:54:00 AM From: Leslie Lam Phone: Admit Date: 12/03/2021 07:37:00 AM Patient Name: Candido Steel Visit Number: [id number] Discharge Date: Payor: [facility] Dear Dr. Bass, Please provide dimensions for debridement so that the most specific code can be charged. Thank you for your kind consideration. 5 x 5 x 4 cm MTDD
== END 2021-12-03 18:00 | disposition home or self-care (01) ==
LOC: OR 07:37
PROVIDERS: ATTEND Surgery
DX: T81.41XA Infection following a procedure, superficial incisional surgical site, initial encounter (principal); E11.9 Type 2 diabetes mellitus without complications; E78.5 Hyperlipidemia, unspecified; I10 Essential (primary) hypertension; Z85.828 Personal history of other malignant neoplasm of skin; Z87.01 Personal history of pneumonia (recurrent); G47.30 Sleep apnea, unspecified; Z87.19 Personal history of other diseases of the digestive system; U09.9 Post COVID-19 condition, unspecified; Z98.890 Other specified postprocedural states; Z82.49 Family history of ischemic heart disease and other diseases of the circulatory system; Z80.42 Family history of malignant neoplasm of prostate; Z79.4 Long term (current) use of insulin; Z79.899 Other long term (current) drug therapy
CPT/HCPCS: 88304; 49999; J2250; J1100; J2405; J0690; J2001; J3010; J1170; J0330; J2704; J1644

== ENCOUNTER 2022-09-16 05:53 | Day surgery (SDC) | payer BC ==
[~2022-09-16 05:53] MED LIST changes: -DEXAMETHASONE SOD PHOSPHATE 4 MG/ML 1 ML VIAL IV ONE; -HYDROmorphone 0.5 MG/0.5 ML SYRINGE IVP PRN; -LACTATED RINGERS 1,000 ML IV SCH; -LIDOCAINE 1% (10MG/ML) FOR IV START INTRADERMA PRN; -MIDAZOLAM 2 MG/2 ML VIAL IV PRN; -ONDANSETRON 4 MG/2 ML VIAL IVP ONE; -Pre Op ABX Message 1 EACH MISC MISCELLANE ONE; +ceFAZolin 3 GM in SODIUM CHLORIDE 0.9% 100 ML IVPB PRN
[2022-09-16] MEDS ORDERED: SCOPOLAMINE 1 MG/72 HR PATCH TRANSDERM ONE (06:01)
[2022-09-16] MEDS ORDERED: DEXAMETHASONE SOD PHOSPHATE 4 MG/ML 1 ML VIAL IV ONE (06:01)
[2022-09-16] MEDS ORDERED: ONDANSETRON 4 MG/2 ML VIAL IVP ONE ×2 (06:01→07:10)
[2022-09-16] MEDS ORDERED: MIDAZOLAM 2 MG/2 ML VIAL IV PRN (06:01)
[2022-09-16] MEDS: LACTATED RINGERS 1,000 ML IV SCH (06:55)
[2022-09-16] MEDS ORDERED: HYDROmorphone 0.5 MG/0.5 ML SYRINGE IVP PRN ×2 (07:00→09:30)
[2022-09-16 07:04] LABS: Glucose,Whole Blood 293 mg/dL (70-110)
[2022-09-16] MEDS ORDERED: INSULIN ASPART (NovoLOG) 100 UNIT/ML VIAL SQ ONE (07:10)
[2022-09-16 07:12] LABS: Basophils % (A) 1 %; Eosinophils # (A) 0.3 k/uL (0-0.7); Eosinophils % (A) 3 %; HCT 42.9 % (39.0-53.0); HGB 14.7 gm/dL (13.0-17.5); Lymphocytes # (A) 2.2 k/uL (1.0-4.8); Lymphocytes % (A) 24 %; MCH 29.8 pg (25.0-35.0); MCHC 34.1 g/dL (31.0-37.0); MCV 87.3 fL (80.0-100.0); Monocytes # (A) 0.4 k/uL (0-1.0); Monocytes % (A) 5 %; Neutrophils # (A) 6.2 k/uL (1.3-7.7); Neutrophils % (A) 66 %; Platelet Count 325 k/uL (150-450); RBC 4.92 m/uL (4.30-5.90); RDW 12.4 % (11.5-15.5); WBC 9.3 k/uL (3.8-10.6)
[2022-09-16] MEDS ORDERED: MIDAZOLAM 2 MG/2 ML VIAL IVP ONE (07:27)
[2022-09-16 07:31] LABS: ALT 30 U/L (4-49); AST 28 U/L (17-59); African American GFR (CKD) >90 (>60 ml/min/1.73 sqM); Albumin 4.2 g/dL (3.5-5.0); Alkaline Phosphatase 96 U/L (38-126); Anion Gap 10 mmol/L; Blood Urea Nitrogen 19 mg/dL (9-20); Calcium 8.9 mg/dL (8.4-10.2); Carbon Dioxide 25 mmol/L (22-30); Chloride 101 mmol/L (98-107); Glucose 283 mg/dL (74-99); Non-African American GFR(CKD) >90 (>60 ml/min/1.73 sqM); Potassium 4.4 mmol/L (3.5-5.1); Sodium 136 mmol/L (137-145); Total Bilirubin 0.6 mg/dL (0.2-1.3); Total Protein 7.2 g/dL (6.3-8.2)
[2022-09-16] MEDS ORDERED: MIDAZOLAM 2 MG/2 ML VIAL ONE (07:42)
[2022-09-16] MEDS ORDERED: SODIUM CHLORIDE 0.9% (PF) 10 ML VIAL ONE (07:42)
[2022-09-16] MEDS ORDERED: ROCURONIUM 10 MG/ML (5 ML VIAL) IV ONE (07:42)
[2022-09-16] MEDS ORDERED: LIDOCAINE 2% INJ 20 MG/ML (2 ML VIAL) ONE (07:42)
[2022-09-16] MEDS ORDERED: HYDROmorphone (PF) 1 MG/ML ONE (07:42)
[2022-09-16] MEDS ORDERED: ROPIVACAINE 5 MG/ML 30 ML VIAL ONE (07:42)
[2022-09-16] MEDS ORDERED: SUCCINYLCHOLINE CHLORIDE 200 MG/10 ML VIAL IV ONE (07:42)
[2022-09-16] MEDS ORDERED: PROPOFOL 10 MG/ML 20 ML VIAL IV ONE (07:42)
[2022-09-16] MEDS ORDERED: GLYCOPYRROLATE 0.2 MG/ML 2 ML VIAL ONE (07:42)
[2022-09-16] MEDS ORDERED: fentaNYL (PF) 50 MCG/ML 2 ML AMP ONE (07:42)
[2022-09-16] MEDS ORDERED: KETOROLAC 15 MG/ML 1 ML VIAL ONE (07:42)
[2022-09-16] MEDS ORDERED: NEOSTIGMINE 1 MG/ML 10 ML VIAL ONE (07:42)
[2022-09-16] MEDS ORDERED: LACTATED RINGERS 1,000 ML IV ONE ×2 (08:11→09:30)
[2022-09-16 09:30] LABS: Glucose,Whole Blood 244 mg/dL (70-110)
[2022-09-16] MEDS ORDERED: ONDANSETRON 4 MG/2 ML VIAL IVP PRN (09:30)
[2022-09-16] MEDS ORDERED: HYDROmorphone 1 MG/ML 1 ML SYRINGE IVP PRN (09:30)
[2022-09-16] MEDS ORDERED: HYDROcodone/APAP 5-325MG 1 EACH TAB PO PRN ×2 (09:30)
[2022-09-16] MEDS ORDERED: traMADol 50 MG TAB PO PRN (09:30)
[2022-09-16] MEDS ORDERED: METOCLOPRAMIDE 5 MG/ML 2 ML VIAL IVP PRN (09:30)
[2022-09-16] MEDS ORDERED: ACETAMINOPHEN TAB 325 MG TAB PO PRN (09:30)
[2022-09-16] MEDS ORDERED: NALOXONE 0.4 MG/ML 1 ML VIAL IV PRN (09:30)
--- NOTE | 2022-09-16 09:30 | P.OP ---
Date of Procedure: 09/16/22 Preoperative Diagnosis: Incisional hernia Postoperative Diagnosis: Incisional hernia Procedure(s) Performed: Open repair of incisional hernia with onlay mesh and component separation Lysis of adhesions Partial omentectomy Anesthesia: ALBERTO Surgeon: Alan Bass Pathology: other (Omentum) Condition: stable Disposition: PACU Operative Findings: Incisional hernia with fascial defect measuring 10 x 8 cm Description of Procedure: The patient's placed on the operative table in the supine position. He received general endotracheal anesthesia. His abdomen was prepped and draped in sterile fashion. The patient appears midline laparotomy scar. At the superior portion Portion of the scar there is evidence of an incisional hernia. The skin was excised. Using left cautery and sharp dissection the hernia sac was dissected free from the subcutaneous tissues. The fascia was then exposed using cautery. Hernia sac was opened. There was incarcerated omentum within the hernia sac. The pressure omentum was dissected free. A portion of the omentum was sent to pathology. The hernia sac was then excised and sent to pathology. The fascial defect measured approximately 10 x 8 cm. The fascial defect was under too much tension to bring together primarily. A relaxing incision was made on the lateral transversalis fascia bilaterally. At this point the fascia could then be reapproximated. The fascia was then reapproximated using. 0 Ethibond suture. The sutures placed. Fashion. A piece of Prolene mesh was then placed over top of the repair. The Prolene mesh was also placed over top of the relaxing incisions. Using secure strap tacker the mesh was secured the fascia. The mesh measured approximately 10 x 8" in size. A TELLO drains placed over top the repair and brought through separate stab incision Moises's fascia closed with 0 Vicryl suture. Skin was closed addis. Patient top procedure well. He was sent to recovery room in stable condition.
--- NOTE | 2022-09-16 10:45 | P.ANPRN ---
Procedure Note - Anesthesia - Nerve Block Performed Bilateral Erector Spinae Single Time Out Performed: Yes ([id number]) Date of Procedure: 09/16/22 Procedure Start Time: : Procedure Stop Time: :37 Location of Patient: PreOp Indication: Acute Post-Operative Pain, Dx/Pain Location (abdominal pain), Requested by Surgeon Specifically requested for management of pain by DrBladimir: Alan Bass Sedation Type: Sedate with meaningful contact maintained Preparation: Sterile Prep Position: Prone Catheter: None Needle Types: Pajunk Needle Gauge: 21 Ultrasound used to visualize needle placement: Yes Ultrasound used to observe medication spread: Yes Injectate: 0.5% Ropivacaine (see comment for volume) (15cc + 10 cc of saline on each side) Blood Aspirated: No Pain Paresthesia on Injection Noted: No Resistance on Injection: Normal Image Stored and Saved: Yes Events: Uneventful and Well Tolerated
[2022-09-16] MEDS ORDERED: DEXTROSE 50% SYRINGE 50 ML IVP PRN ×2 (11:54)
[2022-09-16 12:30] LABS: Glucose,Whole Blood 291 mg/dL (70-110)
[2022-09-16] MEDS: KETOROLAC 15 MG/ML 1 ML VIAL IVP SCH ×3 (12:46→23:59)
[2022-09-16] MEDS: INSULIN ASPART (NovoLOG) 100 UNIT/ML VIAL SQ SCH ×4 (12:50→20:59)
--- NOTE | 2022-09-16 14:58 | P.CONS ---
History of Present Illness - Reason for Consult Consult date: 09/16/22 Medical management, postop incisional hernia repair - History of Present Illness This is a 32-year-old male who was admitted under Gen. surgery services for open repair of incisional hernia. Patient underwent open repair of incisional hernia with onlay mesh and component separation along with lysis of adhesions and part ial omentectomy with Dr. Bass today. Reports he follows with Dr. Varela in the outpatient setting with a past medical history of skin cancer, diabetes mellitus, hyperlipidemia, hypertension, sleep apnea and uses a CPAP, previous colectomy with colostomy and reversal of colostomy in 2020. Patient reports he was never a smoker denies alcohol or illicit drug use. Patient with a significant history of diabetes normally insulin-dependent will recommend Accu- Cheks before meals and at bedtime along with sliding scale and will resume pre- meal insulin and is continuing to have elevated sugars will add long-acting as well during hospitalization. Patient will be started on clear liquid diet which mostly consists of sugar and recommend closely watching the blood sugars. Labs reviewed from this morning show a WBC of 9.3, hemoglobin is 14.7, platelets are 325, sodium is 136, potassium 4.4, BUN 19, creatinine 0.87, blood sugars 283, liver functions normal. EKG was also done showing normal sinus rhythm. Review Of Systems: Constitutional: No fever, no chills, no night sweats. No weight change. No weakness, fatigue or lethargy. No daytime sleepiness. EENT: No headache. No blurred vision or double vision, no loss of vision. No loss of Hearing, no ringing in the ears, no dizziness. No nasal drainage or congestion. No epistaxis. No sore throat. Lungs: No shortness of breath, cough, no sputum production. No wheezing. Cardiovascular: No chest pain, no lower extremity edema. No palpitations. No paroxysmal nocturnal dyspnea. No orthopnea. No lightheadedness or dizziness. No syncopal episodes. Abdominal: Reports abdominal pain at the incision site. No nausea, vomiting. No diarrhea. No constipation. No bloody or tarry stools.. No loss of appetite. Genitourinary: No dysuria, increased frequency, urgency. No urinary retention. Musculoskeletal: No myalgias. No muscle weakness, no gait dysfunction, no frequent falls. No back pain. No neck pain. Integumentary: No wounds, no lesions. No rash or pruritus. No unusual bruising. No change in hair or nails. Neurologic: No aphasia. No facial droop. No change in mentation. No head injury. No headache. No paralysis. No paresthesia. Psychiatric: No depression. No anxiety. No mood swings. Endocrine: No abnormal blood sugars. No weight change. No excessive sweating or thirst. No cold intolerance. PHYSICAL EXAMINATION: GENERAL: The patient is alert and oriented x4, Well developed, well nourished. Obese HEENT: Pupils are round and equally reacting to light. EOMI. no scleral icterus. No conjunctival pallor. Normocephalic, atraumatic. No pharyngeal erythema. No thyromegaly. CARDIOVASCULAR: S1 and S2 muffled PULMONARY: diminished breath sounds bilaterally with no wheezing or rhonchi noted. ABDOMEN: soft. tender on exam on light palpation. obese. non-distended, sluggish bowel sounds. No palpable organomegaly. MUSCULOSKELETAL: No joint swelling or deformity. EXTREMITIES: No cyanosis, clubbing, or pedal edema. NEUROLOGICAL: Gross neurological examination did not reveal any focal deficits. SKIN: No rashes. Assessment: Status post open repair of incisional hernia with onlay mesh and component separation, lysis of adhesions and partial omentectomy Diabetes mellitus, type II, insulin-dependent, uncontrolled with hyperglycemia Hyperlipidemia Hypertension Sleep apnea uses a CPAP Previous history of colectomy with colostomy and reversal of colostomy in 2020 Obesity with a body mass index of 37.8 GI prophylaxis DVT prophylaxis Full code Plan: Recommend to continue with current medications and management per general surgery services as attending Medications have been reviewed and resumed Patient is being started on clear liquid diet which mostly consist of sugars although diet being advanced per surgery recommendations. Recommend close monitoring of Accu-Cheks before meals and at bedtime and will resume pre-meals along with sliding scale and may need to add long-acting if blood sugars remain elevated Will order incentive spirometer and recommend continue educating the patient to use at least 10 times every hour while awake Recommend follow-up labs in a.m We will continue to follow with general surgery during hospitalization. Thank you kindly for this consultation. The impression and plan of care has been dictated by Lynda Grant, nurse practitioner as directed. Dr. Zainab MD I have performed a history and examination and MDM of this patient, discussed the same with the dictator, and agree with the dictator's assessment and plan as written ,documented as a scribe. Based on total visit time, I have performed more than 50% of the visit. Any additional findings or plans will be noted. Past Medical History Past Medical History: Cancer, Diabetes Mellitus, Hyperlipidemia, Hypertension, Pneumonia, Skin Disorder, Sleep Apnea/CPAP/BIPAP Additional Past Medical History / Comment(s): Hx diverticulitis w/ colostomy (09/2016), now reversed. skin cancer, herniated discs, uses C-pap machine. 11/2020 COVID & pneumonia w/ hospitalization x1 week. Abd wall wound @ old colostomy site. 12/2020 History of Any Multi-Drug Resistant Organisms: None Reported Past Surgical History: Bowel Resection, Hernia Repair Additional Past Surgical History / Comment(s): colectomy with colostomy. 05/2021 Reversal colostomy, repair inc hernia. ostomy site had retained suture removed 12/03/21, incisional hernia repair w/Dr Bass 09/16/22 Past Anesthesia/Blood Transfusion Reactions: No Reported Reaction, Family History of Problems w/ Anesthesia Additional Past Anesthesia/Blood Transfusion Reaction / Comm: Mother and brother -anxiety Past Psychological History: No Psychological Hx Reported Smoking Status: Never smoker Past Alcohol Use History: None Reported Past Drug Use History: None Reported - Past Family History Brother(s) Family Medical History: Cancer, Myocardial Infarction ([place]) Additional Family Medical History / Comment(s): prostate cancer Medications and Allergies Home Medications Medication Instructions Recorded Confirmed Type INSULIN ASPART (NovoLOG) [NovoLOG 12 unit SQ AC-TID 11/08/20 09/16/22 History (formulary)] lisinopriL [Zestril] 10 mg PO DAILY 11/08/20 09/16/22 History Cholecalciferol [Vitamin D3 (25 50 mcg PO DAILY 05/21/21 09/16/22 History Mcg = 1000 Iu)] Rosuvastatin [Crestor] 20 mg PO DAILY 05/21/21 09/16/22 History gemfibroziL [Lopid] 600 mg PO AC-BID 05/21/21 09/16/22 History Levocetirizine Dihydrochloride 5 mg PO DAILY 12/02/21 09/16/22 History [Xyzal] Multivitamins, Thera [Multivitamin 1 tab PO DAILY 12/02/21 09/16/22 History (formulary)] Psyllium Husk 100% [Metamucil 6 gm PO DAILY 12/02/21 09/16/22 History Packet] Atorvastatin [Lipitor] 20 mg PO DAILY 09/13/22 09/16/22 History Allergies Allergy/AdvReac Type Severity Reaction Status Date / Time No Known Allergies Allergy Verified 09/16/22 06:32 Physical Exam Vitals: Vital Signs Temp Pulse Pulse Resp BP BP Pulse Ox 09/16/22 10:54 16 09/16/22 10:35 97.8 F 83 16 143/82 93 L 09/16/22 10:14 89 16 127/62 94 L 09/16/22 09:59 94 16 142/65 98 09/16/22 09:44 93 16 124/58 96 09/16/22 09:29 94 16 109/55 97 09/16/22 09:14 97.6 F 97 16 120/60 96 09/16/22 06:43 97.4 F L 101 H 16 158/81 94 L Intake and Output 09/15/22 09/16/22 09/16/22 22:59 06:59 14:59 Intake Total 700 1400 Output Total 25 Balance 700 1375 Intake: IV 700 1400 Output: Estimated Blood Loss 25 Other: Weight 122.8 kg 122.8 kg Results CBC & Chem 7: 09/16/22 06:54 09/16/22 06:54 Labs: Abnormal Lab Results - Last 24 Hours (Table) 09/16/22 09/16/22 09/16/22 Range/Units 06:53 06:54 09:29 Sodium 136 L (137-145) mmol/L Glucose 283 H (74-99) mg/dL POC Glucose (mg/dL) 293 H 244 H (70-110) mg/dL
[2022-09-16 17:33] LABS: Glucose,Whole Blood 186 mg/dL (70-110)
[2022-09-16 20:27] LABS: Glucose,Whole Blood 151 mg/dL (70-110)
[2022-09-17] MEDS: KETOROLAC 15 MG/ML 1 ML VIAL IVP SCH ×3 (06:49→18:14)
[2022-09-17] MEDS: LACTATED RINGERS 1,000 ML IV SCH (06:55)
[2022-09-17 07:53] LABS: Glucose,Whole Blood 204 mg/dL (70-110)
[2022-09-17] MEDS ORDERED: lisinopriL 10 MG TAB PO SCH (09:00)
[2022-09-17] MEDS: FENOFIBRATE 160 MG TAB PO SCH (09:46)
[2022-09-17] MEDS: LORATADINE 10 MG TAB PO SCH (09:46)
[2022-09-17] MEDS: ATORVASTATIN 40 MG TAB PO SCH (09:46)
[2022-09-17] MEDS: INSULIN ASPART (NovoLOG) 100 UNIT/ML VIAL SQ SCH ×7 (09:46→22:17)
[2022-09-17] MEDS: ENOXAPARIN 40 MG/0.4 ML SYRINGE SQ SCH (09:46)
--- NOTE | 2022-09-17 11:12 | P.PN ---
Progress Note - Text Progress Note Date: 09/17/22 Patient is doing fairly well. He still has complaints of incisional pain. He is status post repair of complex incisional hernia. On exam vessels are still. Abdomen soft. Incisions clean dry intact. TELLO drain has some minimal serosanguineous drainage. Patient will be discharged home tomorrow. We'll continue to provide postoperative analgesia.
[2022-09-17 12:44] VITALS: BMI 37.8
[2022-09-17 13:02] LABS: Glucose,Whole Blood 137 mg/dL (70-110)
[2022-09-17 17:27] LABS: Glucose,Whole Blood 215 mg/dL (70-110)
[2022-09-17 20:12] LABS: Glucose,Whole Blood 253 mg/dL (70-110)
--- NOTE | 2022-09-17 20:27 | P.PN ---
Subjective Progress Note Date: 09/17/22 This is a 32-year-old male who was admitted under Gen. surgery services for open repair of incisional hernia. Patient underwent open repair of incisional hernia with onlay mesh and component separation along with lysis of adhesions and partial omentectomy with Dr. Bass today. Reports he follows with Dr. Varela in the outpatient setting with a past medical history of skin cancer, diabetes mellitus, hyperlipidemia, hypertension, sleep apnea and uses a CPAP, previous colectomy with colostomy and reversal of colostomy in 2020. Patient reports he was never a smoker denies alcohol or illicit drug use. Patient with a significant history of diabetes normally insulin-dependent will recommend Accu-Cheks before meals and at bedtime along with sliding scale and will resume pre-meal insulin and is continuing to have elevated sugars will add long-acting as well during hospitalization. Patient will be started on clear liquid diet which mostly consists of sugar and recommend closely watching the blood sugars. Labs reviewed from this morning show a WBC of 9.3, hemoglobin is 14.7, platelets are 325, sodium is 136, potassium 4.4, BUN 19, creatinine 0.87, blood sugars 283, liver functions normal. EKG was also done showing normal sinus rhythm. 09/17/2022 Patient is evaluated today postoperative day #1 incisional hernia repair with mesh, component seperation, lysis of adhesions and partial omantectomy. T-max 99.7 over night, heart rate 99, blood pressure 97/59 and on 2L nasal cannula today. We will hold off on lisinopril for today and monitor blood pressures. Encourage incentive spirometery use. Diet advanced to regular diet and tolerating well. He is passing gas postoperatively. Blood sugar remains elevated in the 200s with A1c of 9 and patient continues on scheduled and sliding scale i nsulin and levemir will be added. Review of Systems Constitutional: Denied any fatigue denied any fever. Cardio vascular: denied any chest pain, palpitations Gastrointestinal: denied any nausea, vomiting, diarrhea Pulmonary: Denied any shortness of breath cough Neurologic denied any new focal deficits All inpatient medications were reviewed and appropriate changes in these medications as dictated in the interval history and assessment and plan. PHYSICAL EXAMINATION: GENERAL: The patient is alert and oriented x4, Well developed, well nourished. Obese HEENT: Pupils are round and equally reacting to light. EOMI. no scleral icterus. No conjunctival pallor. Normocephalic, atraumatic. No pharyngeal erythema. No thyromegaly. CARDIOVASCULAR: S1 and S2 muffled PULMONARY: diminished breath sounds bilaterally with no wheezing or rhonchi noted. ABDOMEN: soft. tender on exam on light palpation. Post surgical with abdominal binder in place. obese. non-distended, sluggish bowel sounds. No palpable organomegaly. MUSCULOSKELETAL: No joint swelling or deformity. EXTREMITIES: No cyanosis, clubbing, or pedal edema. NEUROLOGICAL: Gross neurological examination did not reveal any focal deficits. SKIN: No rashes. Assessment: Status post open repair of incisional hernia with onlay mesh and component separation, lysis of adhesions and partial omentectomy Diabetes mellitus, type II, insulin-dependent, uncontrolled with hyperglycemia Hyperlipidemia Hypertension currently low/normotensive Sleep apnea uses a CPAP Previous history of colectomy with colostomy and reversal of colostomy in 2020 Obesity with a body mass index of 37.8 GI prophylaxis DVT prophylaxis Full code Plan: Recomend to continue with current monitoring. Lisinopril is being held at this time and monitor blood pressure. Recommend close monitoring of Accu-Cheks before meals and at bedtime and will resume pre-meals along with sliding scale. Levemir has been added for tighter glycemic control and likely will need insulin on discharge. Patient is using incentive spirometer and recommend continue educating the patient to use at least 10 times every hour while awake We will continue to follow with general surgery during hospitalization. Thank you kindly for this consultation. The impression and plan of care has been dictated by Marj Smith, Nurse Practitioner as directed. Dr. Zainab MD I have performed a history and physical examination and medical decision making of this patient, discussed the same with the dictator, and agree with the dictators assessment and plan as written, documented as a scribe. Based on total visit time, I have performed more than 50% of this visit. Objective - Vital Signs Vital signs: Vital Signs Temp 98.4 F 09/17/22 07:48 Pulse 99 09/17/22 07:48 Resp 19 09/17/22 07:48 BP 97/59 09/17/22 07:48 Pulse Ox 97 09/17/22 07:48 FiO2 Intake & Output 01/13/23 01/14/23 01/14/23 18:59 06:59 18:59 Intake Total 1400 240 Output Total 250 950 Balance 1150 -710 Weight 122.8 kg Intake: IV 1400 Intake, IV Titration 240 Amount Lactated Ringers 1,000 ml 240 @ 125 mls/hr IV .Q8H ONE Rx#:[id number] Output: Drainage 50 50 Right Abdomen 50 50 Urine 175 900 Estimated Blood Loss 25 - Labs CBC & Chem 7: 09/16/22 06:54 09/16/22 06:54 Labs: Abnormal Lab Results - Last 24 Hours (Table) 09/16/22 09/16/22 09/16/22 Range/Units 06:54 09:29 12:28 POC Glucose (mg/dL) 244 H 291 H (70-110) mg/dL Hemoglobin A1c 9.2 H (0.0-6.0) % 09/16/22 09/16/22 09/17/22 Range/Units 17:32 20:25 07:52 POC Glucose (mg/dL) 186 H 151 H 204 H (70-110) mg/dL Hemoglobin A1c (0.0-6.0) % Assessment and Plan Time with Patient: Less than 30
[2022-09-17] MEDS ORDERED: INSULIN DETEMIR (LEVEMIR) 100 UNIT/ML SYR SQ SCH (21:00)
[2022-09-18] MEDS: KETOROLAC 15 MG/ML 1 ML VIAL IVP SCH ×2 (01:45→08:27)
[2022-09-18 07:21] LABS: Glucose,Whole Blood 153 mg/dL (70-110)
[2022-09-18 07:54] VITALS: BP 155/94; PULSE 97; RESP 17; TEMP 98.8
[2022-09-18] MEDS ORDERED: lisinopriL 10 MG TAB PO SCH (09:30)
[2022-09-18] MEDS: LORATADINE 10 MG TAB PO SCH (09:36)
[2022-09-18] MEDS: FENOFIBRATE 160 MG TAB PO SCH (09:36)
[2022-09-18] MEDS: ATORVASTATIN 40 MG TAB PO SCH (09:36)
[2022-09-18] MEDS: ENOXAPARIN 40 MG/0.4 ML SYRINGE SQ SCH (09:36)
[2022-09-18] MEDS: INSULIN ASPART (NovoLOG) 100 UNIT/ML VIAL SQ SCH ×4 (09:37→12:44)
[2022-09-18 11:08] LABS: Glucose,Whole Blood 258 mg/dL (70-110)
--- NOTE | 2022-09-18 11:56 | P.DS ---
Providers Date of admission: 09/16/2022 Expected date of discharge: 09/18/22 Attending physician: Alan Bass Consults: 09/16/22 09:30 Consult Physician Routine Consulting Provider: Ryne Lamb Consult Reason/Comments: Medical management Do you want consulting provider notified?: Yes Primary care physician: James Varela Hospital Course: Is a 52 male who underwent repair of a complex incisional hernia. Patient did well postoperatively. Please see hospital chart for details. Procedures: Repair of incisional hernia with mesh Patient Condition at Discharge: Good Plan - Discharge Summary Discharge Rx Participant: No New Discharge Prescriptions: New Ibuprofen [Motrin] 600 mg PO Q6HR PRN #40 tab PRN Reason: Pain oxyCODONE HCL [OxyIR] 5 mg PO Q6H PRN 3 Days #10 tab PRN Reason: Pain Acetaminophen Tab [Tylenol] 650 mg PO Q6H #30 tab Insulin Glargine,Hum.rec.anlog [Lantus Solostar Pen] 15 units SQ HS #2 each Docusate [Colace] 100 mg PO BID #20 capsule Continue lisinopriL [Zestril] 10 mg PO DAILY INSULIN ASPART (NovoLOG) [NovoLOG (formulary)] 12 unit SQ AC-TID Cholecalciferol [Vitamin D3 (25 Mcg = 1000 Iu)] 50 mcg PO DAILY gemfibroziL [Lopid] 600 mg PO AC-BID Rosuvastatin [Crestor] 20 mg PO DAILY Multivitamins, Thera [Multivitamin (formulary)] 1 tab PO DAILY Psyllium Husk 100% [Metamucil Packet] 6 gm PO DAILY Levocetirizine Dihydrochloride [Xyzal] 5 mg PO DAILY No Action Atorvastatin [Lipitor] 20 mg PO DAILY Discharge Medication List INSULIN ASPART (NovoLOG) [NovoLOG (formulary)] 12 unit SQ AC-TID 11/08/20 [History] lisinopriL [Zestril] 10 mg PO DAILY 11/08/20 [History] Cholecalciferol [Vitamin D3 (25 Mcg = 1000 Iu)] 50 mcg PO DAILY 05/21/21 [History] Rosuvastatin [Crestor] 20 mg PO DAILY 05/21/21 [History] gemfibroziL [Lopid] 600 mg PO AC-BID 05/21/21 [History] Levocetirizine Dihydrochloride [Xyzal] 5 mg PO DAILY 12/02/21 [History] Multivitamins, Thera [Multivitamin (formulary)] 1 tab PO DAILY 12/02/21 [History] Psyllium Husk 100% [Metamucil Packet] 6 gm PO DAILY 12/02/21 [History] Atorvastatin [Lipitor] 20 mg PO DAILY 09/13/22 [History] Acetaminophen Tab [Tylenol] 650 mg PO Q6H #30 tab 09/18/22 [Rx] Docusate [Colace] 100 mg PO BID #20 capsule 09/18/22 [Rx] Ibuprofen [Motrin] 600 mg PO Q6HR PRN #40 tab 09/18/22 [Rx] Insulin Glargine,Hum.rec.anlog [Lantus Solostar Pen] 15 units SQ HS #2 each 09/18/22 [Rx] oxyCODONE HCL [OxyIR] 5 mg PO Q6H PRN 3 Days #10 tab 09/18/22 [Rx] Follow up Appointment(s)/Referral(s): Alan Bass MD [STAFF PHYSICIAN] - 09/27/22 2:00 pm James Varela MD [Primary Care Provider] - 1-2 Days Discharge Disposition: HOME SELF-CARE
--- NOTE | 2022-09-18 16:22 | P.PN ---
Subjective Progress Note Date: 09/18/22 This is a 32-year-old male who was admitted under Gen. surgery services for open repair of incisional hernia. Patient underwent open repair of incisional hernia with onlay mesh and component separation along with lysis of adhesions and partial omentectomy with Dr. Bass today. Reports he follows with Dr. Varela in the outpatient setting with a past medical history of skin cancer, diabetes mellitus, hyperlipidemia, hypertension, sleep apnea and uses a CPAP, previous colectomy with colostomy and reversal of colostomy in 2020. Patient reports he was never a smoker denies alcohol or illicit drug use. Patient with a significant history of diabetes normally insulin-dependent will recommend Accu-Cheks before meals and at bedtime along with sliding scale and will resume pre-meal insulin and is continuing to have elevated sugars will add long-acting as well during hospitalization. Patient will be started on clear liquid diet which mostly consists of sugar and recommend closely watching the blood sugars. Labs reviewed from this morning show a WBC of 9.3, hemoglobin is 14.7, platelets are 325, sodium is 136, potassium 4.4, BUN 19, creatinine 0.87, blood sugars 283, liver functions normal. EKG was also done showing normal sinus rhythm. 09/17/2022 Patient is evaluated today postoperative day #1 incisional hernia repair with mesh, component seperation, lysis of adhesions and partial omantectomy. T-max 99.7 over night, heart rate 99, blood pressure 97/59 and on 2L nasal cannula today. We will hold off on lisinopril for today and monitor blood pressures. Encourage incentive spirometery use. Diet advanced to regular diet and tolerating well. He is passing gas postoperatively. Blood sugar remains elevated in the 200s with A1c of 9 and patient continues on scheduled and sliding scale i nsulin and levemir will be added. 09/18/2022 Patient evaluated postoperative day #2 incisional hernia repair with mesh lysis of adhesions. He is doing well postoperatively and reports minimal abdominal pain. He is passing gas and urinating without difficulty at this time. He is wearing abdominal binder. He is cleared by general surgery for DC home today and to follow up with his PCP and surgery in the office. His A1C is found to be 9.2 this was discussed with patient and he will be started on lantus HS on discharge as well as continue on novolog scheduled. He is agreeable to this. He has been on lantus in the past when he was first diagnosed with diabetes. He has had again low grade temp of 99, although he has no shortness of breath no cough and lungs are clear suspect this is a postoperative atelectasis and he is encourage to continue with incentive spirometer 10 x an hour while awake. Blood pressure up to 150 today and he is also resumed on lisinopril for discharge. Cleared medically for discharge. Review of Systems Constitutional: Denied any fatigue denied any fever. Cardio vascular: denied any chest pain, palpitations Gastrointestinal: denied any nausea, vomiting, diarrhea Pulmonary: Denied any shortness of breath cough Neurologic denied any new focal deficits All inpatient medications were reviewed and appropriate changes in these medications as dictated in the interval history and assessment and plan. PHYSICAL EXAMINATION: GENERAL: The patient is alert and oriented x4, Well developed, well nourished. Obese HEENT: Pupils are round and equally reacting to light. EOMI. no scleral icterus. No conjunctival pallor. Normocephalic, atraumatic. No pharyngeal erythema. No thyromegaly. CARDIOVASCULAR: S1 and S2 muffled PULMONARY: diminished breath sounds bilaterally with no wheezing or rhonchi noted. ABDOMEN: soft. tender on exam on light palpation. Post surgical with abdominal binder in place. obese. non-distended, bowel sounds are increasing. No palpable organomegaly. MUSCULOSKELETAL: No joint swelling or deformity. EXTREMITIES: No cyanosis, clubbing, or pedal edema. NEUROLOGICAL: Gross neurological examination did not reveal any focal deficits. SKIN: No rashes. Assessment: Status post open repair of incisional hernia with onlay mesh and component separation, lysis of adhesions and partial omentectomy Diabetes mellitus, type II, insulin-dependent, uncontrolled with hyperglycemia A1C 9.2 Hyperlipidemia Hypertension resumed on lisinopril. Sleep apnea uses a CPAP Previous history of colectomy with colostomy and reversal of colostomy in 2020 Obesity with a body mass index of 37.8 GI prophylaxis DVT prophylaxis Full code Plan: Recomend to continue with current monitoring. Lisinopril has been resumed on discharge. Patient has been started on lantus for tighter glycemic control and will continue on discharge in addition to novolog 12 units with meals. Patient is using incentive spirometer and recommend continue educating the chuck ent to use at least 10 times every hour while awake Medically he is stable for discharge and will continue all same home medications. Follow up with PCP Dr. Varela on discharge as well as general surge ry. Thank you kindly for this consultation. The impression and plan of care has been dictated by Marj Smith, Nurse Practitioner as directed. Dr. Zainab MD I have performed a history and physical examination and medical decision making of this patient, discussed the same with the dictator, and agree with the dictators assessment and plan as written, documented as a scribe. Based on total visit time, I have performed more than 50% of this visit. Objective - Vital Signs Vital signs: Vital Signs Temp 98.8 F 09/18/22 07:14 Pulse 97 09/18/22 07:14 Resp 17 09/18/22 07:14 BP 155/94 09/18/22 07:14 Pulse Ox 94 L 09/18/22 07:14 FiO2 Intake & Output 09/17/22 09/18/22 09/18/22 18:59 06:59 18:59 Intake Total 720 Output Total 710 20 Balance -710 720 -20 Weight 122.8 kg Intake: Intake, IV Titration 240 Amount Lactated Ringers 1,000 ml 240 @ 20 mls/hr IV .Q24H STEVO Rx#:[id number] Oral 480 Output: Drainage 110 20 Right Abdomen 110 20 Urine 600 Other: Voiding Method Toilet # Voids 3 - Labs CBC & Chem 7: 09/16/22 06:54 09/16/22 06:54 Labs: Abnormal Lab Results - Last 24 Hours (Table) 09/17/22 09/17/22 09/18/22 Range/Units 17:26 20:11 07:13 POC Glucose (mg/dL) 215 H 253 H 153 H (70-110) mg/dL 09/18/22 Range/Units 11:07 POC Glucose (mg/dL) 258 H (70-110) mg/dL Assessment and Plan Time with Patient: Less than 30
== END 2022-09-18 14:50 | disposition home or self-care (01) ==
LOC: OR 05:53 → 5NMEDONC 09:18 → OR 09-18 14:50
PROVIDERS: ATTEND Surgery
DX: K43.0 Incisional hernia with obstruction, without gangrene (principal); G89.18 Other acute postprocedural pain; Z87.19 Personal history of other diseases of the digestive system; Z43.3 Encounter for attention to colostomy; Z98.890 Other specified postprocedural states; Z79.899 Other long term (current) drug therapy; Z79.891 Long term (current) use of opiate analgesic
CPT/HCPCS: 94760 ×2; 93005; 64461; 80053; 85025; 83036; 49596; C1781; J2250; J0690; J2405; J1650 ×2; J1885 ×3; J1644; 88302